=== PATIENT | female | born 1955 | race Caucasian/White ===

== ENCOUNTER 2016-12-16 05:17 | Day surgery (SDC) | payer OTHER ==
[2016-12-14 08:19] LABS: HEMATOCRIT 45.2 % (36.0-47.0); HEMOGLOBIN 15.1 g/dL (12.0-15.5); HGB HCT DIFFERENCE 0.1; MEAN CORPUSCULAR HGB CONC 33.5 g/dL (32.0-36.0); MEAN CORPUSCULAR VOLUME 87 fl (80-97); RED BLOOD COUNT 5.22 10^6/uL (3.72-5.28); RED CELL DISTRIBUTION WIDTH 13.4 % (11.5-14.0); WHITE BLOOD COUNT 6.4 10^3/uL (4.0-10.5)
[2016-12-14 08:43] LABS: ALANINE AMINOTRANSFERASE 30 U/L (9-52); ALBUMIN 4.5 g/dL (3.5-5.0); ALKALINE PHOSPHATASE 64 U/L (38-126); AMYLASE 45 U/L (30-110); ANION GAP 12 (5-19); ASPARTATE AMINO TRANSFERASE 23 U/L (14-36); BILIRUBIN,DIRECT 0.3 mg/dL (0.0-0.4); BILIRUBIN,TOTAL 0.8 mg/dL (0.2-1.3); BLOOD UREA NITROGEN 12 mg/dL (7-20); CALCIUM 9.6 mg/dL (8.4-10.2); CARBON DIOXIDE 30 mmol/L (22-30); CHLORIDE 106 mmol/L (98-107); GLUCOSE 113 mg/dL (75-110); SODIUM 147.8 mmol/L (137-145); TOTAL PROTEIN 7.3 g/dL (6.3-8.2)
--- NOTE | 2016-12-14 13:27 | EKG REPORT ---
SEVERITY:- OTHERWISE NORMAL ECG - SINUS RHYTHM MINIMAL ST DEPRESSION, INFERIOR LEADS : Confirmed by: Travis Clemons MD 14-Dec-2016 13:26:30
[~2016-12-16 05:17] MED LIST: ACETAMINOPHEN 325 MG TABLET PO PRN; CEFAZOLIN 1 GM/D5W RTU 1 GM/50 ML RTUPB IV PRN; LACTATED RINGERS 1000 ML IV PRN; LIDOCAINE 0.5% INJ-PF (5 MG/ML) 50 ML SDV SUBCUT PRN
[2016-12-16 05:57] LABS: PROTHROMBIN TIME 12.5 SEC (11.4-15.4)
[2016-12-16 05:58] LABS: PARTIAL THROMBOPLASTIN TIME 29.5 SEC (23.5-35.8)
[2016-12-16] MEDS ORDERED: BUPIVACAINE HCL 0.25 % INJ/PF (2.5 MG/1 ML) 30 ML VIAL ONE (06:32)
[2016-12-16] MEDS ORDERED: MIDAZOLAM 2 MG/2 ML INJ ONE (07:20)
[2016-12-16] MEDS ORDERED: PROPOFOL INJ 200 MG/20 ML VIAL IV ONE (07:20)
[2016-12-16] MEDS ORDERED: FENTANYL CITRATE INJ/PF 250 MCG/5 ML AMPULE ONE (07:20)
[2016-12-16] MEDS ORDERED: DEXMEDETOMIDINE INJ 80 MCG/20 ML VIAL IV ONE (07:21)
[2016-12-16] MEDS ORDERED: EPHEDRINE SULFATE INJ 50 MG/1 ML AMPULE ONE (07:21)
[2016-12-16] MEDS ORDERED: FENTANYL CITRATE INJ/PF 100 MCG/2 ML AMPUL IV PRN ×3 (08:01)
[2016-12-16] MEDS ORDERED: OXYCODONE-ACETAMINOPHEN 5-325 MG TABLET PO PRN ×3 (08:01→10:04)
[2016-12-16] MEDS ORDERED: MORPHINE SULFATE 10 MG/ML INJ IV PRN ×2 (08:01→08:40)
[2016-12-16] MEDS ORDERED: MEPERIDINE HCL/PF INJ 25 MG/1 ML DISP.SYRIN IV PRN (08:01)
[2016-12-16] MEDS ORDERED: PROMETHAZINE HCL INJ 25 MG/1 ML VIAL IV PRN ×2 (08:01)
[2016-12-16] MEDS ORDERED: DIPHENHYDRAMINE HCL 50 MG/ML VIAL IV PRN (08:01)
[2016-12-16] MEDS ORDERED: ONDANSETRON HCL INJ/PF 4 MG/2 ML SDV IV PRN (08:40)
--- NOTE | 2016-12-16 08:40 | Operative Report ---
Operative Report DATE OF SURGERY: 12/16/16 PREOPERATIVE DIAGNOSIS: Symptomatic cholelithiasis cholecystitis POSTOPERATIVE DIAGNOSIS: Same OPERATION: Laparoscopic cholecystectomy. Laparoscopic lysis of adhesions SURGEON: ENZO VALADEZ ANESTHESIA: GA TISSUE REMOVED OR ALTERED: one gallbladder with stones COMPLICATIONS: none ESTIMATED BLOOD LOSS: scant INTRAOPERATIVE FINDINGS: see below PROCEDURE: After obtaining informed consent, the patient was taken to the operating room. General Anesthesia was induced; the arms were extended, and the abdomen was exposed, and prepped and draped in a sterile fashion. Instrumentation was set up for laparoscopic cholecystectomy. Surgical plan and surgical timeout were conducted. A vertical incision was made above the umbilicus, and a verres needle was inserted uneventfully into the peritoneal cavity. Pneumoperitoneum was established. The verres needle was removed and a 5 mm trocar was inserted and a 5 mm flexible laparoscope was inserted. Visualization of the peritoneal cavity confirmed safe uneventful entry. Under direct visualization 3 additional 5 mm ports were established, one in the subxiphoid position and second in the subcostal position. There were extensive adhesions between the gallbladder and the gastrohepatic region as well as the hepato-colonic region .these adhesions were taken down using a combination of blunt, sharp, and electrocautery dissection. We now had exposure of the infundibulum of the gallbladder Visualization of the hepatobiliary anatomy revealed no anatomic variations. A grasper was placed on the fundus of the gallbladder and the gallbladder is elevated over the right surface of the liver; a second grasper was used to grasp the infundibulum of the gallbladder. The neck of the gallbladder and junction with the cystic duct was dissected out. Her were dense filmy adhesions between the gallbladder neck and the liver. These were taken down sharply. The Cystic artery was in its usual location, medial and cephalad to the cystic duct. The cystic artery was surrounded with a right angle clamp, clipped twice proximally and divided with laparoscopic scissors. We now opened the triangle of Calot by dividing the peritoneal reflection on both the medial and lateral sides of the cystic duct infundibular junction. The critical view was obtained. We now milked the cystic duct of any possible stones, clipped the cystic duct approximately 2 times once distally and divided with scissors. In order to ensure adequate closure of the cystic duct stump, a 0 PDS was placed proximal to the 2 previously placed marii. The gallbladder was now removed from the undersurface of the liver using hook cautery dissection. The gallbladder and stones were placed in an Endobag. Graspers were repositioned and the gallbladder was removed uneventfully from the abdominal cavity through the super umbilical port site incision. There was no spillage of stones. The specimen was examined, then passed off to pathology for permanent analysis. We returned to the peritoneal cavity check for bleeding, and evidence of bile leak, and there was none. We Confirmed satisfactory placement of clips on cystic duct and cystic artery were secured . At this point we felt the operation was complete. The subcutaneous tissue was then anesthetized with quarter percent Marcaine Sponge and needle counts are correct. All ports removed under direct visualization pneumoperitoneum evacuated, and 5 mm port wounds closed with 3-0 Vicryl suture, benzoin and Steri-Strips. The patient was extubated, and taken to the recovery room in stable condition.
--- NOTE | 2016-12-16 08:45 | PDOC DISCHARGE SUMMARY ---
Discharge Summary (SDC) - Discharge Final Diagnosis: Symptomatic cholelithiasis cholecystitis Date of Surgery: 12/16/16 Discharge Date: 12/16/16 Condition: Good Treatment or Instructions: [facility] [address] [place] [id number] Discharge Instructions: Laparoscopic Surgery 1. General Information: a. DO NOT DRIVE a car or operate dangerous machinery for 3-4 days or while taking narcotic pain pills. b. DO NOT consume alcohol, tranquilizers, sleeping medications or any non- prescribed medications for 24 hours unless approved by your doctor or as long as taking narcotic prescription medications. c. DO NOT make important decisions or sign any important papers for the first 24 hours after surgery. d. When discharged home the same day of surgery have a responsible person with you for the first night. 2. Activity Restrictions: 2 weeks. a. NO heavy lifting, straining abdominal muscles, bending over a lot, yard work, house work, or sports for [address] for 3-4 days or while taking Toradol . c. It is fine to go for walks, up and down steps, ride in a car. d. Elevate your head when sleeping/resting. 3. Treatment: a. You may shower 24 hours after surgery, no baths or swimming for 2 weeks. Remove band-aids or dressings before shower but leave paper strips (steri-strips ) on the skin to fall off on their own. If still on at postoperative visit they will be removed then. b. Drainage of fluid or blood is not unusual from an incision. If occurs, you can clean with peroxide and cotton ball daily and cover with dry gauze until the wound seals. c. If a lot of bleeding occurs, you can hold pressure with a gauze or cloth over the site for 10 minutes and it will usually stop. If bleeding continues you will need to call for possible evaluation in office or emergency room. 4. Medications: a. _ You may switch to plain Tylenol, Advil or Aleve as you transition from the narcotic. Many adults find good pain relief with Advil 600-800 mg three times a day with meals. This can cause indigestion, ulcers, and kidney problems with long-term use. b. You should resume all normal medications unless a change is specified by your doctors. c. Begin with clear liquids and may progress to your normal diet if not nauseated. No high fat, high protein foods the day of surgery. Normal diet 6. The following may occur after laparoscopic surgery: a. Shoulder or upper back ache from retained gas that should resolve in 1-2 days b. Soreness and bruising at incision sites will resolve with time. c. Scrotal swelling (labia in women) and bruising is often seen after hernia surgery. d. Sore throat e. Fatigue may last days to weeks. f. Difficulty urinating may occur and may need to come into emergency room for urinary catheter placement. 7. Notify Physician If: a. Worsening or pain not improved with pain medication b. Persistent nausea and vomiting c. Fever above 101 d. Persistent bleeding or swelling at operative site e. Unable to urinate and uncomfortable bladder 6-8 hours after surgery 8..Follow Up Care: a. Schedule a follow up appointment with your doctor for 2 weeks. In the event of any postoperative problems or questions or you may call the office during business hours or the On-Call physician evenings and weekends at [facility]. [facility] I understand the instructions for my postoperative care as described above and a copy has been given to me. Patient/Significant Other Witness Date Prescriptions: Ketorolac Tromethamine [Toradol 10 mg Tablet] 10 mg PO Q6HP PRN #0 tablet PRN Reason: Discharge Diet: As Tolerated Discharge Activity: Activity As Tolerated Home Care Assistance: None Needed Report the Following to Your Physician Immediately: Shortness of Breath, Increase in Pain, Fever over 101 Degrees
[2016-12-16] MEDS ORDERED: RINGERS SOLUTION,LACTATED 1,000 ML IV PRN (10:04)
[2016-12-16 10:50] VITALS: BP 116/74
[2016-12-16] MEDS ORDERED: ROCURONIUM BROMIDE INJ 50 MG/5 ML VIAL IV ONE (13:07)
[2016-12-16] MEDS ORDERED: NEOSTIGMINE METHYLSULFATE 10 MG/10 ML VIAL ONE (13:07)
[2016-12-16] MEDS ORDERED: DEXAMETHASONE SOD PHOSPHATE INJ 4 MG/1 ML VIAL ONE (13:07)
[2016-12-16] MEDS ORDERED: ONDANSETRON HCL INJ/PF 4 MG/2 ML SDV ONE (13:07)
[2016-12-16] MEDS ORDERED: GLYCOPYRROLATE INJ 0.4 MG/2 ML VIAL ONE (13:07)
[2016-12-16] MEDS ORDERED: LIDOCAINE 2% INJ-PF (20 MG/ML) 10 ML AMPUL ONE (13:07)
[2016-12-16] MEDS ORDERED: SUCCINYLCHOLINE CHLORIDE INJ 200 MG/10 ML VIAL ONE (13:07)
== END 2016-12-16 11:00 | disposition home or self-care (01) ==
LOC: OROUT 05:17
PROVIDERS: ATTEND Surgery
PROC: 0FT44ZZ Resection of Gallbladder, Percutaneous Endoscopic Approach (ICD-10-PCS; principal; 2016-12-16 07:30)
DX: K80.10 Calculus of gallbladder with chronic cholecystitis without obstruction (principal); I10 Essential (primary) hypertension; I25.10 Atherosclerotic heart disease of native coronary artery without angina pectoris; J44.9 Chronic obstructive pulmonary disease, unspecified; Z79.899 Other long term (current) drug therapy; Z79.82 Long term (current) use of aspirin; Z87.891 Personal history of nicotine dependence
CPT/HCPCS: 93005; 36415 ×2; 82150; 85027; 85610; 85730; 80076; 80048; 88304 ×2; 93010; 47562; J2250; J0690; J3490 ×4; J1100; J3010; J0330; J2405; J2704; 790

== ENCOUNTER 2016-12-22 19:14 | Inpatient (IN) | payer OTHER ==
[2016-12-22] MEDS ORDERED: MORPHINE SULFATE 10 MG/ML INJ IV ONE (19:24)
[2016-12-22] MEDS ORDERED: NORMAL SALINE 1000 ML 1,000 ML IV ONE ×2 (19:25→23:08)
[2016-12-22] MEDS ORDERED: ONDANSETRON HCL INJ/PF 4 MG/2 ML SDV IV ONE (19:25)
--- NOTE | 2016-12-22 19:27 | ER Document Report ---
ED GI/ - General Stated Complaint: ABDOMINAL PAIN Time seen by provider: 19:20 Notes: Patient is a 61-year-old female that comes to the emergency department by EMS for chief complaint of pain in her mid to upper right abdomen and upper midabdomen with vomiting. Patient states she is 5 days postop cholecystectomy by Dr. Harding. She states she is taking Toradol for pain at home, states she was doing well until took a couple of bites of dinner and suddenly began having sharp persistent pain with vomiting which has not improved. Given 4 mg Zofran by EMS. Patient states she had a normal-looking bowel movement today, denies blood in vomit, denies fever. PMH hysterectomy, [place] with stent, hypertension. TRAVEL OUTSIDE OF THE [place] IN LAST 30 DAYS: No - Related Data Allergies/Adverse Reactions: No Known Allergies Allergy (Verified 12/14/16 08:04) Past Medical History - General Information source: Patient - Social History Smoking Status: Current Some Day Smoker Frequency of alcohol use: None Drug Abuse: None Lives with: Family Family History: Reviewed & Not Pertinent - Past Medical History Cardiac Medical History: Reports: Hx Heart Attack - CARDIAC STENT x1, Hx Hypertension Denies: Hx Coronary Artery Disease Pulmonary Medical History: Denies: Hx Asthma, Hx Bronchitis, Hx COPD, Hx Pneumonia Neurological Medical History: Denies: Hx Cerebrovascular Accident, Hx Seizures GI Medical History: Denies: Hx Hepatitis, Hx Hiatal Hernia, Hx Ulcer Musculoskeltal Medical History: Denies Hx Arthritis Infectious Medical History: Denies: Hx Hepatitis Past Surgical History: Reports: Hx Hysterectomy. Denies: Hx Mastectomy, Hx Open Heart Surgery, Hx Pacemaker - Immunizations Hx Diphtheria, Pertussis, Tetanus Vaccination: Yes Review of Systems - Review of Systems Constitutional: No symptoms reported EENT: No symptoms reported Cardiovascular: No symptoms reported Respiratory: No symptoms reported Gastrointestinal: See HPI Genitourinary: No symptoms reported Female Genitourinary: No symptoms reported Musculoskeletal: No symptoms reported Skin: No symptoms reported Hematologic/Lymphatic: No symptoms reported Neurological/Psychological: No symptoms reported Physical Exam - Vital signs Vitals: Temp Pulse Resp BP Pulse Ox 98 F 84 18 145/92 H 100 12/22/16 19:27 12/22/16 19:27 12/22/16 19:27 12/22/16 19:27 12/22/16 19:27 Interpretation: Normal - General General appearance: Anxious In distress: Moderate - patient has difficulty holding still, appears to be in obvious discomfort - HEENT Head: Normocephalic, Atraumatic Eyes: Normal Conjunctiva: Normal Extraocular movements intact: Yes Eyelashes: Normal Pupils: PERRL Mouth/Lips: Normal Mucous membranes: Normal Pharynx: Normal Neck: Normal - Respiratory Respiratory status: No respiratory distress Chest status: Nontender Breath sounds: Normal. No: Decreased air movement, Wheezing Chest palpation: Normal - Cardiovascular Rhythm: Regular. No: Tachycardia Heart sounds: Normal auscultation, S1 appreciated, S2 appreciated Murmur: No - Abdominal Inspection: Healed incision - Healed incisions over the umbilical and mid upper abdomen, no significant surrounding erythema, induration, or other abnormality noted Distension: No distension Bowel sounds: Normal Tenderness: Tender - Patient is very tender with guarding in the mid to right upper abdomen and also in the epigastric area Organomegaly: No organomegaly - Back Back: Normal, Nontender - Extremities General upper extremity: Normal inspection, Nontender, Normal color, Normal ROM , Normal temperature General lower extremity: Normal inspection, Nontender, Normal color, Normal ROM , Normal temperature, Normal weight bearing. No: Christine's sign - Neurological Neuro grossly intact: Yes Cognition: Normal Orientation: AAOx4 Rubén Coma Scale Eye Opening: Spontaneous Rubén Coma Scale Verbal: Oriented Rubén Coma Scale Motor: Obeys Commands Rubén Coma Scale Total: 15 Speech: Normal Motor strength normal: LUE, RUE, LLE, RLE Sensory: Normal - Psychological Associated symptoms: Anxious - Skin Skin Temperature: Warm Skin Moisture: Dry Skin Color: Normal Course - Re-evaluation Re-evalutation: Patient initially very uncomfortable, acute abdominal series performed to rule out free air in the abdomen. Abdominal series is unremarkable, CBC shows leukocytosis at 15.9 with elevation of neutrophils with no bands. Chemistry unremarkable including LFTs and normal lipase. CT of the abdomen and pelvis performed with IV contrast, discussed with Dr. Guevara. Patient had to be remedicated for her pain. Contacted and spoke with Dr. 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 Dr. Reynaga evaluated patient at bedside, CT and workup nonspecific with no acute process noted, no obvious reason for patient's pain. Patient asking to go home, he recommends trial of by mouth and patient will be placed on Prilosec and Percocet for follow-up. Patient did not do well with by mouth trial, afterwards she began to have a lot of pain, on my reevaluation patient is noticeably again in pain. Spoke with Dr. Reynaga again, recommends admission to the hospital. Patient is now agreeable with this. - Vital Signs Vital signs: Temp Pulse Resp BP Pulse Ox 98.0 F 84 18 126/93 H 93 12/22/16 23:11 12/22/16 19:27 12/22/16 19:27 12/23/16 03:02 12/23/16 03:29 - Laboratory Result Diagrams: 12/22/16 20:47 12/22/16 20:47 Laboratory results interpreted by me: 12/22/16 12/22/16 12/22/16 20:47 20:47 22:05 WBC 15.9 H Seg Neuts % (Manual) 88 H Lymphocytes % (Manual) 3 L Abs Neuts (Manual) 14.0 H Glucose 147 H Urine Glucose (UA) 50 H Urine Ketones TRACE H Urine Blood MODERATE H Discharge - Discharge Clinical Impression: Abdominal pain Qualifiers: Abdominal location: upper abdomen, unspecified Qualified Code(s): R10.10 - Upper abdominal pain, unspecified Vomiting Qualifiers: Vomiting type: unspecified Vomiting Intractability: non-intractable Nausea presence: with nausea Qualified Code(s): R11.2 - Nausea with vomiting, unspecified Disposition: ADMITTED INPATIENT Admitting Provider: Surgicalist Unit Admitted: Surgical Floor
[2016-12-22] MEDS ORDERED: HYDROMORPHONE HCL INJ/PF 2 MG/ML AMPULE IV ONE ×2 (20:00→22:25)
[2016-12-22 21:01] LABS: HEMATOCRIT 38.8 % (36.0-47.0); HEMOGLOBIN 13.3 g/dL (12.0-15.5); HGB HCT DIFFERENCE 1.1; MEAN CORPUSCULAR HEMOGLOBIN 29.4 pg (27.0-33.4); MEAN CORPUSCULAR HGB CONC 34.4 g/dL (32.0-36.0); MEAN CORPUSCULAR VOLUME 86 fl (80-97); RED BLOOD COUNT 4.54 10^6/uL (3.72-5.28); RED CELL DISTRIBUTION WIDTH 13.7 % (11.5-14.0); WHITE BLOOD COUNT 15.9 10^3/uL (4.0-10.5)
[2016-12-22 21:13] LABS: ALANINE AMINOTRANSFERASE 38 U/L (9-52); ALBUMIN 3.9 g/dL (3.5-5.0); ALKALINE PHOSPHATASE 82 U/L (38-126); ANION GAP 13 (5-19); ASPARTATE AMINO TRANSFERASE 18 U/L (14-36); BILIRUBIN,DIRECT 0.2 mg/dL (0.0-0.4); BILIRUBIN,TOTAL 0.6 mg/dL (0.2-1.3); BLOOD UREA NITROGEN 14 mg/dL (7-20); CALCIUM 8.8 mg/dL (8.4-10.2); CARBON DIOXIDE 25 mmol/L (22-30); CHLORIDE 106 mmol/L (98-107); CREATININE RESULT 0.71 mg/dL (0.52-1.25); GLUCOSE 147 mg/dL (75-110); LIPASE 30.1 U/L (23-300); POTASSIUM 3.6 mmol/L (3.6-5.0); SODIUM 144.4 mmol/L (137-145); TOTAL PROTEIN 6.4 g/dL (6.3-8.2)
[2016-12-22 21:20] LABS: BASOPHILS % (MANUAL) 0 % (0-2); EOSINOPHILS % (MANUAL) 0 % (0-6); LYMPHOCYTES % (MANUAL) 3 % (13-45); TOTAL CELLS COUNTED 100
[2016-12-22 21:21] LABS: PLATELET CLUMPS PRESENT
[2016-12-22 22:25] LABS: APPEARANCE,URINE CLEAR; BILIRUBIN,URINE NEGATIVE (NEGATIVE); GLUCOSE, URINE 50 mg/dL (NEGATIVE); KETONES,URINE TRACE mg/dL (NEGATIVE); LEUKOCYTE ESTERASE,URINE NEGATIVE (NEGATIVE); NITRITE,URINE NEGATIVE (NEGATIVE); PROTEIN,URINE NEGATIVE (NEGATIVE); URINE SPECIFIC GRAVITY 1.026; UROBILINOGEN,URINE NEGATIVE mg/dL (<2.0)
[2016-12-22] MEDS ORDERED: FAMOTIDINE 20 MG TABLET PO ONE (23:14)
[2016-12-22] MEDS ORDERED: SUCRALFATE 1 GM TABLET PO ONE (23:14)
--- NOTE | 2016-12-23 00:34 | CONSULTATION REPORT E ---
Consultation Report NAME: DIANE SALINAS : 1955 AGE: 61Y DATE: 12/22/2016 TO: MAGY PATEL M.D. FROM: CELIA GOLDBERG Requesting Physician REASON FOR CONSULTATION: The patient is status post lap bill about [address] Harding. Patient all of a sudden after starting to eat dinner at a quarter to six today developed severe abdominal pains with nausea and vomiting. Came to the emergency room and an obstructing series was done. It was unremarkable. A CAT scan of the abdomen also was done. It showed no useful collection or perforation. Patient has been afebrile though her white count is up to 15,000; maybe due from her vomiting with dehydration. I saw her in the emergency room and she was just medicated parenterally about half an hour ago and she feels comfortable right now. Her abdomen is soft but some tenderness along the trocar sites. All the trocar sites are clean and dry. She does not have any constipation or dysuria. She had a bowel movement today. Her abdomen is flat. I discussed her case with ER physician and agree with the impression of likely gastritis. She will be given omeprazole or equivalent and Percocet p.r.n. for pain. If she still has significant amount of pain or still having nausea and vomiting then I may have to admit her for hydration and parenteral pain medication. Otherwise, she will be discharged and follow up with Dr. Harding' office. DICTATING PHYSICIAN: MAGY PATEL M.D. [id number] PHY#: [id number] ID: [id number] JOB#: [id number] ACCT: [id number] cc:MAGY PATEL M.D. >
[2016-12-23] MEDS ORDERED: HYDROMORPHONE HCL INJ/PF 2 MG/ML AMPULE IV ONE (01:01)
[2016-12-23] MEDS: PANTOPRAZOLE SODIUM 40 MG VIAL IV PRN ×3 (01:38→19:50)
[2016-12-23] MEDS: NORMAL SALINE 1000 ML 1,000 ML IV PRN ×2 (01:39→19:49)
[2016-12-23] MEDS: MORPHINE SULFATE 10 MG/ML INJ IV PRN ×3 (03:21→15:01)
[2016-12-23] MEDS ORDERED: ONDANSETRON HCL INJ/PF 4 MG/2 ML SDV IV PRN (04:38)
[2016-12-23] MEDS ORDERED: GLUCAGON,HUMAN RECOMB 1 MG INJ SUBCUT PRN ×2 (05:05→17:21)
[2016-12-23] MEDS ORDERED: DEXTROSE 40% GEL 15 GM TUBE PO PRN ×4 (05:05→17:21)
[2016-12-23] MEDS ORDERED: DEXTROSE 50%-WATER 25 GM/50 ML DISP.SYRIN IV PRN ×4 (05:05→17:21)
[2016-12-23 05:50] LABS: HEMATOCRIT 37.1 % (36.0-47.0); HEMOGLOBIN 12.7 g/dL (12.0-15.5); MEAN CORPUSCULAR HEMOGLOBIN 29.3 pg (27.0-33.4); MEAN CORPUSCULAR HGB CONC 34.3 g/dL (32.0-36.0); MEAN CORPUSCULAR VOLUME 85 fl (80-97); RED BLOOD COUNT 4.34 10^6/uL (3.72-5.28); RED CELL DISTRIBUTION WIDTH 13.5 % (11.5-14.0); WHITE BLOOD COUNT 20.9 10^3/uL (4.0-10.5)
[2016-12-23 06:16] LABS: BASOPHILS % (MANUAL) 0 % (0-2); EOSINOPHILS % (MANUAL) 0 % (0-6); LYMPHOCYTES % (MANUAL) 3 % (13-45); TOTAL CELLS COUNTED 100
[2016-12-23 06:18] LABS: OVALOCYTES SLIGHT; POIKILOCYTOSIS SLIGHT; TEAR DROP CELLS SLIGHT; TOXIC GRANULATION 1+; TOXIC VACUOLATION PRESENT
[2016-12-23] MEDS ORDERED: HYDROMORPHONE HCL INJ/PF 2 MG/ML AMPULE ONE ×2 (06:18→06:22)
[2016-12-23] MEDS: HYDROMORPHONE HCL INJ/PF 2 MG/ML AMPULE IV PRN ×2 (11:49→20:02)
[2016-12-23 13:50] LABS: HEMATOCRIT 39.2 % (36.0-47.0); HGB HCT DIFFERENCE -0.2; MEAN CORPUSCULAR HEMOGLOBIN 28.5 pg (27.0-33.4); MEAN CORPUSCULAR HGB CONC 33.2 g/dL (32.0-36.0); MEAN CORPUSCULAR VOLUME 86 fl (80-97); RED BLOOD COUNT 4.56 10^6/uL (3.72-5.28); RED CELL DISTRIBUTION WIDTH 13.8 % (11.5-14.0); WHITE BLOOD COUNT 22.7 10^3/uL (4.0-10.5)
[2016-12-23 14:09] LABS: ALANINE AMINOTRANSFERASE 28 U/L (9-52); ALBUMIN 3.8 g/dL (3.5-5.0); ALKALINE PHOSPHATASE 80 U/L (38-126); ASPARTATE AMINO TRANSFERASE 17 U/L (14-36); BILIRUBIN,DIRECT 0.3 mg/dL (0.0-0.4); BILIRUBIN,TOTAL 1.1 mg/dL (0.2-1.3); LIPASE 10.6 U/L (23-300); TOTAL PROTEIN 6.3 g/dL (6.3-8.2)
[2016-12-23 14:10] LABS: AMYLASE < 30 U/L (30-110)
[2016-12-23 14:33] LABS: BAND NEUTROPHILS % (MANUAL) 2 % (3-5); BASOPHILS % (MANUAL) 0 % (0-2); EOSINOPHILS % (MANUAL) 0 % (0-6); LYMPHOCYTES % (MANUAL) 5 % (13-45); POLYCHROMASIA SLIGHT; TOTAL CELLS COUNTED 100; TOXIC GRANULATION 1+; TOXIC VACUOLATION PRESENT
[2016-12-23] MEDS ORDERED: NICOTINE 21 MG/24 HR PATCH.TD24 TD PRN (14:35)
--- NOTE | 2016-12-23 14:40 | PDOC H&P ---
History of Present Illness Admission Date/PCP: 12/23/16 03:39 ADIEL HARDIN Attending: Surgicalist Patient complains of: Abdominal pain History of Present Illness: DIANE SALINAS is a 61 year old female with a past medical history of coronary artery disease. Patient presented to the emergency department by EMS for chief complaint of pain in her mid to upper right abdomen and upper midabdomen with vomiting. Patient stated she was 5 days postop cholecystectomy by Dr. Harding. She states she is taking Toradol for pain at home, states she was doing well until took a couple of bites of dinner and suddenly began having sharp persistent pain with vomiting which has not improved. Given 4 mg Zofran by EMS. Patient states she had a normal-looking bowel movement today, denies blood in vomit, denies fever. PMH hysterectomy, [place] with stent, hypertension. On presentation the patient was found to have normal LFTs, normal lipase, she was not making lactic acid however white count was 15,000. The patient was seen and examined by surgicalist and admitted to the service. The morning of the patient became short of breath and therefore was referred to the hospitalist for consultation. 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 Lives with: Family Smoking Status: Current Some Day Smoker Cigarettes Packs Per Day: 2 Number of Years Smokin Last Time Smoked: 12/21/16 Frequency of Alcohol Use: Occasional Hx Recreational Drug Use: No Hx Prescription Drug Abuse: No - Advance Directive Resuscitation Status: Full Code Surrogate healthcare decision maker:: Miley Portillo Family History Family History: Reviewed & Not Pertinent Parental Family History Reviewed: Yes Children Family History Reviewed: NA Sibling(s) Family History Reviewed.: Yes Medication/Allergy Home Medications: Amlodipine Besylate [Norvasc 2.5 mg Tablet] 2.5 mg PO DAILY 12/23/16 Aspirin [Aspirin 81 mg Chewable Tablet] 81 mg PO DAILY 12/23/16 Atorvastatin Calcium [Lipitor 40 mg Tablet] 40 mg PO QHS 12/23/16 Clopidogrel Bisulfate [Plavix 75 mg Tablet] 75 mg PO DAILY 12/23/16 Enalapril Maleate [Vasotec 20 mg Tablet] 20 mg PO DAILY 12/23/16 Metoprolol Tartrate [Lopressor 25 mg Tablet] 12.5 mg PO Q12 12/23/16 Allergies/Adverse Reactions: No Known Allergies Allergy (Verified 12/14/16 08:04) Review of Systems Constitutional: ABSENT: chills, fever(s), headache(s), weight gain, weight loss Eyes: ABSENT: visual disturbances Ears: ABSENT: hearing changes Cardiovascular: ABSENT: chest pain, dyspnea on exertion, edema, orthropnea, palpitations Respiratory: ABSENT: cough, hemoptysis Gastrointestinal: PRESENT: abdominal pain, nausea. ABSENT: constipation, diarrhea, hematemesis, hematochezia, vomiting Genitourinary: ABSENT: dysuria, hematuria Musculoskeletal: ABSENT: joint swelling Integumentary: ABSENT: rash, wounds Neurological: ABSENT: abnormal gait, abnormal speech, confusion, dizziness, focal weakness, syncope Psychiatric: ABSENT: anxiety, depression, homidical ideation, suicidal ideation Endocrine: ABSENT: cold intolerance, heat intolerance, polydipsia, polyuria Hematologic/Lymphatic: ABSENT: easy bleeding, easy bruising Physical Exam Vital Signs: Temp Pulse Resp BP Pulse Ox 98.7 F 83 19 126/80 H 97 12/23/16 07:34 12/23/16 07:34 12/23/16 07:34 12/23/16 07:34 12/23/16 07:34 Intake & Output 12/21/16 12/22/16 12/23/16 23:59 23:59 23:59 Output Total 400 Balance -400 Weight 69.4 kg General appearance: PRESENT: no acute distress, cooperative, well-developed, well-nourished Head exam: PRESENT: atraumatic, normocephalic Eye exam: PRESENT: conjunctiva pink, EOMI, PERRLA. ABSENT: scleral icterus Ear exam: PRESENT: normal external ear exam Mouth exam: PRESENT: moist, tongue midline Neck exam: ABSENT: carotid bruit, JVD, lymphadenopathy, thyromegaly Respiratory exam: PRESENT: clear to auscultation duncan, symmetrical, unlabored. ABSENT: rales, rhonchi, tachypnea, wheezes Cardiovascular exam: PRESENT: RRR. ABSENT: diastolic murmur, rubs, systolic murmur Pulses: PRESENT: normal dorsalis pedis pul Vascular exam: PRESENT: normal capillary refill GI/Abdominal exam: PRESENT: normal bowel sounds, soft. ABSENT: distended, guarding, mass, organolmegaly, rebound, tenderness Rectal exam: PRESENT: deferred Extremities exam: PRESENT: full ROM. ABSENT: calf tenderness, clubbing, pedal edema Neurological exam: PRESENT: alert, awake, oriented to person, oriented to place , oriented to time, oriented to situation, CN II-XII grossly intact. ABSENT: motor sensory deficit Psychiatric exam: PRESENT: appropriate affect, normal mood. ABSENT: homicidal ideation, suicidal ideation Skin exam: PRESENT: dry, intact, warm. ABSENT: cyanosis, rash Results Laboratory Results: 12/23/16 12/23/16 12/23/16 04:53 13:34 13:34 WBC 20.9 H RBC 4.34 Hgb 12.7 Hct 37.1 MCV 85 MCH 29.3 MCHC 34.3 RDW 13.5 Plt Count 254 Seg Neutrophils % Not Reportable Not Reportable Lymphocytes % Not Reportable Not Reportable Monocytes % Not Reportable Not Reportable Eosinophils % Not Reportable Not Reportable Basophils % Not Reportable Not Reportable Absolute Neutrophils Not Reportable Not Reportable Absolute Lymphocytes Not Reportable Not Reportable Absolute Monocytes Not Reportable Not Reportable Absolute Eosinophils Not Reportable Not Reportable Absolute Basophils Not Reportable Not Reportable Lactic Acid Total Bilirubin 1.1 AST 17 ALT 28 Alkaline Phosphatase 80 Total Protein 6.3 Albumin 3.8 Amylase < 30 L Lipase 10.6 L 12/23/16 13:34 WBC RBC Hgb Hct MCV MCH MCHC RDW Plt Count Seg Neutrophils % Lymphocytes % Monocytes % Eosinophils % Basophils % Absolute Neutrophils Absolute Lymphocytes Absolute Monocytes Absolute Eosinophils Absolute Basophils Lactic Acid 0.8 Total Bilirubin AST ALT Alkaline Phosphatase Total Protein Albumin Amylase Lipase Impressions: Acute Abdomen Series 12/22/16 19:25 IMPRESSION: NO RADIOGRAPHIC EVIDENCE FOR ACUTE ABDOMINAL DISEASE.Nonobstructive pattern. Abdomen/Pelvis CT 12/22/16 21:30 IMPRESSION: Postsurgical changes from recent cholecystectomy with mild free fluid in the surgical bed. No evidence for abscess or free air. Chest X-Ray 12/23/16 00:00 IMPRESSION: Bibasilar airspace disease right greater than left likely atelectasis. Early or developing pneumonia could not be excluded Lung Scan-VQ NM 12/23/16 00:00 IMPRESSION: NORMAL VENTILATION-PERFUSION LUNG SCAN. NEGATIVE FOR PULMONARY EMBOLI. Assessment & Plan - Diagnosis (1) Dyspnea Qualifiers: Dyspnea type: shortness of breath Qualified Code(s): R06.02 - Shortness of breath Is this a current diagnosis for this admission?: YesPlan: The patient states that her shortness of breath was related to her pain. The patient has been oxygenating well since that time. The patient is a heavy smoker therefore will add incentive spirometry also has issues with allergic rhinitis will add Flonase. Chest x-ray is pending. Given the patient's abdominal pain as well as leukocytosis is concern for biliary versus GI etiology. Would recommend antibiotic coverage. (2) Tobacco dependency Is this a current diagnosis for this admission?: YesPlan: Spent 3 minutes discussing smoking cessation education. The patient declines any pharmacological intervention at this time however will add a PRN nicotine patch. (3) Coronary artery disease Qualifiers: Coronary Disease-Associated Artery/Lesion type: [place] artery [place] vs. transplanted heart: [place] heart Associated angina: without angina Qualified Code(s): I25.10 - Atherosclerotic heart disease of [place] coronary artery without angina pectoris Is this a current diagnosis for this admission?: YesPlan: Continue home meds. Hold Plavix in case patient may need operative intervention. (4) Hypertension Qualifiers: Hypertension type: essential hypertension Qualified Code(s): I10 - Essential (primary) hypertension Is this a current diagnosis for this admission?: YesPlan: Will continue home medications. (5) Status post cholecystectomy Is this a current diagnosis for this admission?: Yes (6) Abdominal pain Qualifiers: Abdominal location: upper abdomen, unspecified Qualified Code(s): R10.10 - Upper abdominal pain, unspecified Is this a current diagnosis for this admission?: YesPlan: Management as per surgery - Time Time Spent: 50 to 70 Minutes Medications reviewed and adjusted accordingly: Yes Within: Other
[2016-12-23] MEDS ORDERED: VANCOMYCIN HCL INJ 1000 MG VIAL IV ONE (18:21)
[2016-12-23] MEDS ORDERED: VANCOMYCIN HCL INJ 1000 MG VIAL IV SCH (18:30)
[2016-12-23] MEDS ORDERED: VANCOMYCIN HCL 1,000 MG in DEXTROSE 5%-WATER 250 ML IV SCH (20:00)
[2016-12-23 20:44] LABS: TROUGH DRAW TIME 1913
[2016-12-23] MEDS: METRONIDAZOLE 500 MG/NS RTU 100 ML IV SCH (21:12)
--- NOTE | 2016-12-23 21:28 | PROGRESS NOTE E ---
Progress Note NAME: DIANE SALINAS : 1955 AGE: 61Y DATE: 12/23/2016 ROOM: 226 SUBJECTIVE: She continues to have abdominal pains more in the epigastric area though. According to the nurses, it was on the lower quadrant earlier today. Her white count went up from yesterday, but she does not have any fever. Because of the pain and tenderness, a repeat CT scan with oral contrast was ordered after discussion with Dr. Harding. The CAT scan showed no new lesions in the abdomen other than some more fluid around the liver and the operative gallbladder site. However, she does have a right lower lobe pneumonia, which may account for the white count elevation. Because of this she was started on IV cefepime and continued on Flagyl for questionable early diverticulitis. I saw her after the CAT scan and she felt a lot better and very hungry so I started her on clear liquids, which she tolerated very well. Repeat CBC will be ordered in the morning. DICTATING PHYSICIAN: MAGY PATEL M.D. [id number] PHY#: [id number] ID: [id number] JOB#: [id number] ACCT: [id number] cc: >
[2016-12-23] MEDS: METOPROLOL TARTRATE 25 MG TABLET PO SCH (21:32)
[2016-12-23] MEDS: FLUTICASONE NASAL SPRAY 50 MCG/SPRY 120 SPRAY/16 GM NASL SCH (21:37)
[2016-12-23] MEDS: ATORVASTATIN CALCIUM 40 MG TABLET PO SCH (22:19)
[2016-12-23] MEDS: CEFEPIME 1 GM/D5W RTU 50 ML IV SCH (22:20)
[2016-12-24] MEDS: HYDROMORPHONE HCL INJ/PF 2 MG/ML AMPULE IV PRN ×3 (00:48→21:29)
[2016-12-24] MEDS: METRONIDAZOLE 500 MG/NS RTU 100 ML IV SCH ×3 (05:26→21:59)
[2016-12-24] MEDS: PANTOPRAZOLE SODIUM 40 MG VIAL IV PRN ×2 (05:59→16:23)
[2016-12-24] MEDS: NORMAL SALINE 1000 ML 1,000 ML IV PRN ×2 (06:38→16:23)
[2016-12-24] MEDS: MORPHINE SULFATE 10 MG/ML INJ IV PRN (06:48)
[2016-12-24 07:11] LABS: HEMOGLOBIN 12.1 g/dL (12.0-15.5); HGB HCT DIFFERENCE 0.3; MEAN CORPUSCULAR HEMOGLOBIN 28.7 pg (27.0-33.4); MEAN CORPUSCULAR HGB CONC 33.5 g/dL (32.0-36.0); MEAN CORPUSCULAR VOLUME 86 fl (80-97); RED CELL DISTRIBUTION WIDTH 13.5 % (11.5-14.0); WHITE BLOOD COUNT 16.4 10^3/uL (4.0-10.5)
[2016-12-24 07:30] LABS: ALANINE AMINOTRANSFERASE 27 U/L (9-52); ALBUMIN 3.1 g/dL (3.5-5.0); ALKALINE PHOSPHATASE 80 U/L (38-126); ANION GAP 10 (5-19); ASPARTATE AMINO TRANSFERASE 19 U/L (14-36); BILIRUBIN,DIRECT 0.5 mg/dL (0.0-0.4); BILIRUBIN,TOTAL 1.3 mg/dL (0.2-1.3); BLOOD UREA NITROGEN 13 mg/dL (7-20); CALCIUM 8.7 mg/dL (8.4-10.2); CARBON DIOXIDE 25 mmol/L (22-30); CHLORIDE 107 mmol/L (98-107); CREATININE RESULT 0.65 mg/dL (0.52-1.25); GLUCOSE 107 mg/dL (75-110); LIPASE 10.9 U/L (23-300); POTASSIUM 3.6 mmol/L (3.6-5.0); SODIUM 141.7 mmol/L (137-145); TOTAL PROTEIN 5.5 g/dL (6.3-8.2)
[2016-12-24 07:56] LABS: BAND NEUTROPHILS % (MANUAL) 1 % (3-5); BASOPHILS % (MANUAL) 0 % (0-2); EOSINOPHILS % (MANUAL) 0 % (0-6); LYMPHOCYTES % (MANUAL) 2 % (13-45); POLYCHROMASIA SLIGHT; TOTAL CELLS COUNTED 100; TOXIC GRANULATION SLIGHT
[2016-12-24] MEDS ORDERED: ALBUTEROL SULFATE 0.083% NEB 2.5 MG/3 ML AMPUL NEB PRN (08:19)
--- NOTE | 2016-12-24 09:01 | PDOC PROGRESS REPORT ---
Subjective Progress Note for:: 12/24/16 Subjective:: still with ruq abdominal pain. but feels better from admission Physical Exam Vital Signs: Temp Pulse Resp BP Pulse Ox 98.0 F 86 20 154/70 H 94 12/24/16 08:36 12/24/16 08:36 12/24/16 08:36 12/24/16 08:36 12/24/16 08:36 Intake & Output 12/23/16 12/24/16 12/25/16 06:59 06:59 06:59 Intake Total 2500 Output Total 300 100 Balance -300 2400 Weight 69.4 kg General appearance: PRESENT: no acute distress, cooperative Respiratory exam: PRESENT: other - decreased bs at bases GI/Abdominal exam: PRESENT: other - soft, mildly distended with tenderness ruq. Results Laboratory Results: 12/24/16 06:38 12/24/16 06:38 12/23/16 12/23/16 12/23/16 13:34 13:34 13:34 WBC 22.7 H RBC 4.56 Hgb 13.0 Hct 39.2 MCV 86 MCH 28.5 MCHC 33.2 RDW 13.8 Plt Count 276 Seg Neutrophils % Not Reportable Lymphocytes % Not Reportable Monocytes % Not Reportable Eosinophils % Not Reportable Basophils % Not Reportable Absolute Neutrophils Not Reportable Absolute Lymphocytes Not Reportable Absolute Monocytes Not Reportable Absolute Eosinophils Not Reportable Absolute Basophils Not Reportable Sodium Potassium Chloride Carbon Dioxide Anion Gap BUN Creatinine Est GFR ( Amer) Est GFR (Non-Af Amer) Glucose Lactic Acid 0.8 Calcium Total Bilirubin 1.1 AST 17 ALT 28 Alkaline Phosphatase 80 Total Protein 6.3 Albumin 3.8 Amylase < 30 L Lipase 10.6 L 12/24/16 12/24/16 06:38 06:38 WBC 16.4 H RBC 4.20 Hgb 12.1 Hct 36.0 MCV 86 MCH 28.7 MCHC 33.5 RDW 13.5 Plt Count 261 Seg Neutrophils % Not Reportable Lymphocytes % Not Reportable Monocytes % Not Reportable Eosinophils % Not Reportable Basophils % Not Reportable Absolute Neutrophils Not Reportable Absolute Lymphocytes Not Reportable Absolute Monocytes Not Reportable Absolute Eosinophils Not Reportable Absolute Basophils Not Reportable Sodium 141.7 Potassium 3.6 Chloride 107 Carbon Dioxide 25 Anion Gap 10 BUN 13 Creatinine 0.65 Est GFR ( Amer) > 60 Est GFR (Non-Af Amer) > 60 Glucose 107 Lactic Acid Calcium 8.7 Total Bilirubin 1.3 AST 19 ALT 27 Alkaline Phosphatase 80 Total Protein 5.5 L Albumin 3.1 L Amylase Lipase 10.9 L Impressions: Acute Abdomen Series 12/22/16 19:25 IMPRESSION: NO RADIOGRAPHIC EVIDENCE FOR ACUTE ABDOMINAL DISEASE.Nonobstructive pattern. Chest X-Ray 12/23/16 00:00 IMPRESSION: Bibasilar airspace disease right greater than left likely atelectasis. Early or developing pneumonia could not be excluded Lung Scan-VQ NM 12/23/16 00:00 IMPRESSION: NORMAL VENTILATION-PERFUSION LUNG SCAN. NEGATIVE FOR PULMONARY EMBOLI. Abdomen/Pelvis CT 12/23/16 14:35 IMPRESSION: 1. Increasing free fluid within the abdomen surrounding the liver , in the lesser sac and in the pelvis. There is no air to suggest abscess. 2. Right lower lobe pneumonia. Assessment & Plan - Diagnosis (1) Abdominal pain Qualifiers: Abdominal location: upper abdomen, unspecified Qualified Code(s): R10.10 - Upper abdominal pain, unspecified Is this a current diagnosis for this admission?: YesPlan: s/p lap bill a week ago. possible bile leak. check hida. (2) Pneumonia Qualifiers: Laterality: right Lung location: lower lobe of lung Is this a current diagnosis for this admission?: YesPlan: abx, pulmonary toilet.
[2016-12-24] MEDS ORDERED: ASPIRIN 81 MG TABLET, CHEWABLE PO SCH (10:00)
[2016-12-24] MEDS ORDERED: AMLODIPINE BESYLATE 2.5 MG TABLET PO SCH (10:00)
[2016-12-24] MEDS ORDERED: CLOPIDOGREL BISULFATE 75 MG TABLET PO SCH (10:00)
[2016-12-24] MEDS ORDERED: ENALAPRIL MALEATE 10 MG TABLET PO SCH (10:00)
[2016-12-24] MEDS ORDERED: (PENDING PHARMACY ID) (Enalapril Maleate [Vasotec 20 Mg Tablet] 20 MG) PO SCH (10:00)
[2016-12-24] MEDS: METOPROLOL TARTRATE 25 MG TABLET PO SCH ×2 (12:02→22:00)
[2016-12-24] MEDS: CEFEPIME 1 GM/D5W RTU 50 ML IV SCH ×2 (12:05→21:58)
[2016-12-24] MEDS: FLUTICASONE NASAL SPRAY 50 MCG/SPRY 120 SPRAY/16 GM NASL SCH ×2 (12:07→22:10)
--- NOTE | 2016-12-24 15:50 | PDOC PROGRESS REPORT ---
Subjective Progress Note for:: 12/24/16 Physical Exam Vital Signs: Temp Pulse Resp BP Pulse Ox 97.7 F 94 22 H 163/86 H 100 12/24/16 15:00 12/24/16 15:00 12/24/16 15:00 12/24/16 15:00 12/24/16 15:00 Intake & Output 12/23/16 12/24/16 12/25/16 06:59 06:59 06:59 Intake Total 2500 Output Total 300 100 Balance -300 2400 Weight 69.4 kg Results Laboratory Results: 12/24/16 06:38 12/24/16 06:38 12/24/16 12/24/16 06:38 06:38 WBC 16.4 H RBC 4.20 Hgb 12.1 Hct 36.0 MCV 86 MCH 28.7 MCHC 33.5 RDW 13.5 Plt Count 261 Seg Neutrophils % Not Reportable Lymphocytes % Not Reportable Monocytes % Not Reportable Eosinophils % Not Reportable Basophils % Not Reportable Absolute Neutrophils Not Reportable Absolute Lymphocytes Not Reportable Absolute Monocytes Not Reportable Absolute Eosinophils Not Reportable Absolute Basophils Not Reportable Sodium 141.7 Potassium 3.6 Chloride 107 Carbon Dioxide 25 Anion Gap 10 BUN 13 Creatinine 0.65 Est GFR ( Amer) > 60 Est GFR (Non-Af Amer) > 60 Glucose 107 Calcium 8.7 Total Bilirubin 1.3 AST 19 ALT 27 Alkaline Phosphatase 80 Total Protein 5.5 L Albumin 3.1 L Lipase 10.9 L Impressions: Acute Abdomen Series 12/22/16 19:25 IMPRESSION: NO RADIOGRAPHIC EVIDENCE FOR ACUTE ABDOMINAL DISEASE.Nonobstructive pattern. Chest X-Ray 12/23/16 00:00 IMPRESSION: Bibasilar airspace disease right greater than left likely atelectasis. Early or developing pneumonia could not be excluded Lung Scan-VQ NM 12/23/16 00:00 IMPRESSION: NORMAL VENTILATION-PERFUSION LUNG SCAN. NEGATIVE FOR PULMONARY EMBOLI. Abdomen/Pelvis CT 12/23/16 14:35 IMPRESSION: 1. Increasing free fluid within the abdomen surrounding the liver , in the lesser sac and in the pelvis. There is no air to suggest abscess. 2. Right lower lobe pneumonia. Hepatobiliary Scan Nuclear Medicine 12/24/16 00:00 IMPRESSION: Contained bile leak in the surgical bed. Assessment & Plan - Diagnosis (1) Abdominal pain Qualifiers: Abdominal location: upper abdomen, unspecified Qualified Code(s): R10.10 - Upper abdominal pain, unspecified Is this a current diagnosis for this admission?: Yes (2) Pneumonia Qualifiers: Laterality: right Lung location: lower lobe of lung Is this a current diagnosis for this admission?: Yes (3) Postoperative bile leak Is this a current diagnosis for this admission?: YesPlan: hida shows evidence of contained leak. however, with the significant perihepatic fluid collection and tenderness, likely connecting with it. will get ct guided drainage. pt is on plavix. will stop plavix and consult GI for ERCP on wednesday.
--- NOTE | 2016-12-24 16:14 | PDOC PROGRESS REPORT ---
Subjective Progress Note for:: 12/24/16 Subjective:: The patient states that she does feel overall much better today. The patient did have a large amount of visitors. I discussed the case with surgicalist. Given that the patient has received Plavix today she'll be unable to have a ERCP. This can be done on Wednesday. His arrangements were made with the surgicalist and Dr. Rodriguez. The patient is hypertensive however it appears she has not received her blood pressure medications today. Given the patient's history of coronary artery disease as well as her acute illness and hypertension do feel the patient would benefit from IMCU status. Physical Exam Vital Signs: Temp Pulse Resp BP Pulse Ox 97.7 F 94 22 H 163/86 H 100 12/24/16 15:00 12/24/16 15:00 12/24/16 15:00 12/24/16 15:00 12/24/16 15:00 Intake & Output 12/22/16 12/23/16 12/24/16 23:59 23:59 23:59 Intake Total 500 2000 Output Total 400 Balance 100 2000 Weight 69.4 kg Results Laboratory Results: 12/24/16 06:38 12/24/16 06:38 12/24/16 12/24/16 06:38 06:38 WBC 16.4 H RBC 4.20 Hgb 12.1 Hct 36.0 MCV 86 MCH 28.7 MCHC 33.5 RDW 13.5 Plt Count 261 Seg Neutrophils % Not Reportable Lymphocytes % Not Reportable Monocytes % Not Reportable Eosinophils % Not Reportable Basophils % Not Reportable Absolute Neutrophils Not Reportable Absolute Lymphocytes Not Reportable Absolute Monocytes Not Reportable Absolute Eosinophils Not Reportable Absolute Basophils Not Reportable Sodium 141.7 Potassium 3.6 Chloride 107 Carbon Dioxide 25 Anion Gap 10 BUN 13 Creatinine 0.65 Est GFR ( Amer) > 60 Est GFR (Non-Af Amer) > 60 Glucose 107 Calcium 8.7 Total Bilirubin 1.3 AST 19 ALT 27 Alkaline Phosphatase 80 Total Protein 5.5 L Albumin 3.1 L Lipase 10.9 L Impressions: Acute Abdomen Series 12/22/16 19:25 IMPRESSION: NO RADIOGRAPHIC EVIDENCE FOR ACUTE ABDOMINAL DISEASE.Nonobstructive pattern. Chest X-Ray 12/23/16 00:00 IMPRESSION: Bibasilar airspace disease right greater than left likely atelectasis. Early or developing pneumonia could not be excluded Lung Scan-VQ NM 12/23/16 00:00 IMPRESSION: NORMAL VENTILATION-PERFUSION LUNG SCAN. NEGATIVE FOR PULMONARY EMBOLI. Abdomen/Pelvis CT 12/23/16 14:35 IMPRESSION: 1. Increasing free fluid within the abdomen surrounding the liver , in the lesser sac and in the pelvis. There is no air to suggest abscess. 2. Right lower lobe pneumonia. Hepatobiliary Scan Nuclear Medicine 12/24/16 00:00 IMPRESSION: Contained bile leak in the surgical bed. Assessment & Plan - Diagnosis (1) Status post cholecystectomy Is this a current diagnosis for this admission?: YesPlan: Does appear to be a biliary leak. Management as per surgery in conjunction with radiology and GI. At this point the patient is here appear hemodynamically stable. (2) Coronary artery disease Qualifiers: Coronary Disease-Associated Artery/Lesion type: [place] artery [place] vs. transplanted heart: [place] heart Associated angina: without angina Qualified Code(s): I25.10 - Atherosclerotic heart disease of [place] coronary artery without angina pectoris Is this a current diagnosis for this admission?: YesPlan: Continue home meds. Hold Plavix in case patient may need operative intervention. (3) Hypertension Qualifiers: Hypertension type: essential hypertension Qualified Code(s): I10 - Essential (primary) hypertension Is this a current diagnosis for this admission?: YesPlan: The patient may resume home medications. (4) Pneumonia Qualifiers: Laterality: right Lung location: lower lobe of lung Is this a current diagnosis for this admission?: YesPlan: Chest x-ray was suggestive of possible early pneumonia. The patient does not have any overt clinical symptoms of this. Will continue incentive spirometry. The patient is a heavy smoker. (5) Tobacco dependency Is this a current diagnosis for this admission?: YesPlan: The patient declines any pharmacological intervention at this time however will add a PRN nicotine patch. - Time Time Spent with patient: 25-34 minutes Medications reviewed and adjusted accordingly: Yes
[2016-12-24] MEDS: ATORVASTATIN CALCIUM 40 MG TABLET PO SCH (21:57)
[2016-12-25] MEDS: MORPHINE SULFATE 10 MG/ML INJ IV PRN (00:08)
[2016-12-25] MEDS: HYDROMORPHONE HCL INJ/PF 2 MG/ML AMPULE IV PRN ×4 (01:47→21:45)
[2016-12-25] MEDS: PANTOPRAZOLE SODIUM 40 MG VIAL IV PRN (02:05)
[2016-12-25] MEDS ORDERED: KETOROLAC TROMETHAMINE INJ/PF 30 MG/1 ML SDV ONE (02:25)
[2016-12-25] MEDS ORDERED: KETOROLAC TROMETHAMINE INJ/PF 30 MG/1 ML SDV IV ONE (02:30)
[2016-12-25] MEDS: METRONIDAZOLE 500 MG/NS RTU 100 ML IV SCH ×3 (06:16→21:21)
[2016-12-25] MEDS ORDERED: BUPIVACAINE HCL 0.25 % INJ/PF (2.5 MG/1 ML) 30 ML VIAL ONE (07:24)
[2016-12-25] MEDS ORDERED: BUPIVACAINE INJ/PF LIPOSOME/PF 266 MG/20 ML SDV ONE (07:25)
[2016-12-25 08:11] LABS: CREATININE RESULT 0.68 mg/dL (0.52-1.25)
[2016-12-25] MEDS ORDERED: FENTANYL CITRATE INJ/PF 250 MCG/5 ML AMPULE ONE (08:26)
[2016-12-25] MEDS ORDERED: ALBUTEROL SULFATE 0.083% NEB 2.5 MG/3 ML AMPUL NEB ONE (08:26)
[2016-12-25] MEDS ORDERED: MIDAZOLAM 2 MG/2 ML INJ ONE (08:27)
[2016-12-25] MEDS ORDERED: PROPOFOL INJ 200 MG/20 ML VIAL IV ONE (08:27)
[2016-12-25] MEDS ORDERED: ACETAMINOPHEN 100 ML IV ONE (08:27)
[2016-12-25] MEDS ORDERED: MORPHINE SULFATE 10 MG/ML INJ ONE (08:28)
[2016-12-25] MEDS ORDERED: FENTANYL CITRATE INJ/PF 100 MCG/2 ML AMPUL IV PRN ×3 (10:12)
[2016-12-25] MEDS ORDERED: MEPERIDINE HCL/PF INJ 25 MG/1 ML DISP.SYRIN IV PRN (10:12)
[2016-12-25] MEDS ORDERED: OXYCODONE-ACETAMINOPHEN 5-325 MG TABLET PO PRN ×2 (10:12)
[2016-12-25] MEDS ORDERED: DIPHENHYDRAMINE HCL 50 MG/ML VIAL IV PRN (10:12)
[2016-12-25] MEDS ORDERED: MORPHINE SULFATE 10 MG/ML INJ IV PRN (10:12)
[2016-12-25] MEDS ORDERED: PROMETHAZINE HCL INJ 25 MG/1 ML VIAL IV PRN ×2 (10:12)
[2016-12-25] MEDS ORDERED: PHARMACY COMMUNICATION ORDER MC NR (10:45)
[2016-12-25] MEDS ORDERED: DEXTROSE 40% GEL 15 GM TUBE NG PRN (10:49)
[2016-12-25] MEDS ORDERED: OXYCODONE-ACETAMINOPHEN 5-325 MG TABLET NG PRN ×2 (10:51)
--- NOTE | 2016-12-25 10:58 | Operative Report ---
Nonrecallable Operative Report DATE OF SURGERY: 12/25/16 PREOPERATIVE DIAGNOSIS: 1. Bile leak with peritonitis. 2. Status post- laparoscopic cholecystectomy. 3. Smoker POSTOPERATIVE DIAGNOSIS: Same OPERATION: 1. Exploratory laparoscopy. 2. Washout of peritoneal cavity. 3. Resecuring of cystic duct stump. 4. Drainage of super and infra-hepatic spaces SURGEON: ENZO HARDING ANESTHESIA: GA TISSUE REMOVED OR ALTERED: Bile and fibrinous debris COMPLICATIONS: None ESTIMATED BLOOD LOSS: scant INTRAOPERATIVE FINDINGS: See below PROCEDURE: The patient was taken from the floor to the preop holding area and then the main operating room where general anesthesia was induced. She had voided prior to entering the OR. Arms were abducted, abdomen exposed, prepped and draped in sterile fashion. Surgical plan and surgical time out conducted. Skin was anesthetized with quarter percent Marcaine at all for previous laparoscopy sites. We approach the peritoneal cavity by opening the medial right subcostal incision, inserting a Veress needle to the peritoneal cavity and pneumoperitoneum established. Veress needle was removed and a 5 mm port was inserted in the peritoneal cavity. Of note there was some dilated small bowel but were able to gain exposure safely. Under direct visualization 3 additional 5 mm ports were placed at the previous port site incisions including right subcostal lateral position, subxiphoid position, and supraumbilical position. Intraoperative peritoneal cavity findings were significant for moderate amount of bile and fibrinous material above and around the right lobe of the liver. A moderate amount of bile in the pelvis. Total volume of retained bile approximately 500 mL. Using suction and irrigation of approximately 2 L, all accessible drain bile was irrigated out of the peritoneal cavity, and fibrinous debris broken up during this included fibrin between the subhepatic space and the gastroduodenal area. We were now able to expose sob hepatic space including the gallbladder fossa using 2 nicely positioned liver retractors. This gave us excellent exposure to the postoperative site where the majority of the tissue was encountered. the adhesions allowed us complete exposure to the postoperative field which appeared as we had left it during the previous operation. Specifically there were 2 clips on the cystic artery stump in the medial and cephalad position, and further towards the jen hepatis was the cystic duct stump. This is where the majority of the bile staining main after washing out the region cystic duct stump had 2 clips placed distally and slightly more proximally a 3-0 PDS suture. This was left just as they had been installed by Dr. Harding during the patient's initial laparoscopic cholecystectomy. The reason for placing the Endoloop was because the 2 clips not completely cross the full diameter of the cystic duct stump. After meticulously examining this area, cleaning up any residual pooled bile, it appeared the ongoing bile leak, although very subtle, was coming from the posterior deep side of the cystic duct stump, perhaps adjacent to the secured Endoloop. Because of the short length of the stump, and the now inflamed surrounding tissue, I felt the safest maneuver removed the 2 distal clips, and place a second 3-0 PDS Endoloop on the cystic duct stump. This in fact was achieved successfully. Unfortunately, continued to be a slow ooze of bile presumably from the more proximal Endoloop site. At this point, I felt that the primary objective of the operation was achieved, that was irrigating out the bile, and affecting proper drainage. Therefore I placed 2 large Chavez drains through the right subcostal port site incisions. The lateral drain was placed over the dome of the right lobe of the liver and subdiaphragmatic compartment, and the medial drain was placed in the subhepatic space in the gallbladder fossa. We felt the operation was complete. Sponge and needle counts are correct. All ports removed under direct visualization, pneumoperitoneum evacuated, and secured with 2-0 Prolene suture and all wounds closed with 3-0 Vicryl suture. Benzoin and Steri-Strips applied. As of the impending sepsis, patient's history of smoking and now reoperative surgery, we felt that a visit to the ICU leaving her intubated would be in her best interest so that was executed. A Hill catheter was inserted at the conclusion of the operation. The patient tolerated the procedure well. There were no complications.
[2016-12-25] MEDS: FLUTICASONE NASAL SPRAY 50 MCG/SPRY 120 SPRAY/16 GM NASL SCH ×2 (13:05→21:19)
[2016-12-25] MEDS: CEFEPIME 1 GM/D5W RTU 50 ML IV SCH ×2 (13:05→21:21)
--- NOTE | 2016-12-25 15:35 | PDOC PROGRESS REPORT ---
Subjective Progress Note for:: 12/25/16 Subjective:: The patient was seen postoperatively on rounds. The patient went to the ICU after surgery and is currently intubated. The patient did have a duration of hypertension postoperatively and was elected to remain intubated. The patient is currently [facility] 70-75[facility] Currently [facility]. The patient has no evidence of volume overload at this time. Physical Exam Vital Signs: Temp Pulse Resp BP Pulse Ox 97.5 F 109 H 14 158/93 H 97 12/25/16 14:21 12/25/16 11:09 12/25/16 11:09 12/25/16 11:09 12/25/16 12:30 Intake & Output 12/23/16 12/24/16 12/25/16 23:59 23:59 23:59 Intake Total 250 0 Output Total 3092 Balance 250 -3092 Weight 76.5 kg General appearance: PRESENT: well-developed, well-nourished Exam: Intubate, sedated, mechanically ventilated Head exam: PRESENT: atraumatic, normocephalic Eye exam: PRESENT: conjunctiva pink, EOMI, PERRLA. ABSENT: scleral icterus Ear exam: PRESENT: normal external ear exam Mouth exam: PRESENT: moist, other - ET tube in place Neck exam: ABSENT: carotid bruit, JVD, lymphadenopathy, thyromegaly Respiratory exam: PRESENT: clear to auscultation duncan, symmetrical - Mechanical. ABSENT: rales, rhonchi, tachypnea, wheezes Cardiovascular exam: PRESENT: RRR. ABSENT: diastolic murmur, rubs, systolic murmur Pulses: PRESENT: normal dorsalis pedis pul Vascular exam: PRESENT: normal capillary refill GI/Abdominal exam: PRESENT: distended, firm. ABSENT: mass Rectal exam: PRESENT: deferred Extremities exam: ABSENT: calf tenderness, clubbing, pedal edema Skin exam: PRESENT: dry, intact, warm. ABSENT: cyanosis, rash Results Laboratory Results: Labs- Last Values WBC 16.4 10^3/uL (4.0-10.5) H 12/24/16 06:38 RBC 4.20 10^6/uL (3.72-5.28) 12/24/16 06:38 Hgb 12.1 g/dL (12.0-15.5) 12/24/16 06:38 Hct 36.0 % (36.0-47.0) 12/24/16 06:38 MCV 86 fl (80-97) 12/24/16 06:38 MCH 28.7 pg (27.0-33.4) 12/24/16 06:38 MCHC 33.5 g/dL (32.0-36.0) 12/24/16 06:38 RDW 13.5 % (11.5-14.0) 12/24/16 06:38 Plt Count 261 10^3/uL (150-450) 12/24/16 06:38 Total Counted 100 12/24/16 06:38 Seg Neutrophils % Not Reportable 12/24/16 06:38 Seg Neuts % (Manual) 87 % (42-78) H 12/24/16 06:38 Band Neutrophils % 1 % (3-5) L 12/24/16 06:38 Lymphocytes % Not Reportable 12/24/16 06:38 Lymphocytes % (Manual) 2 % (13-45) L 12/24/16 06:38 Atypical Lymphs % 1 % (0) 12/24/16 06:38 Monocytes % Not Reportable 12/24/16 06:38 Monocytes % (Manual) 9 % (3-13) 12/24/16 06:38 Eosinophils % Not Reportable 12/24/16 06:38 Eosinophils % (Manual) 0 % (0-6) 12/24/16 06:38 Basophils % Not Reportable 12/24/16 06:38 Basophils % (Manual) 0 % (0-2) 12/24/16 06:38 Absolute Neutrophils Not Reportable 12/24/16 06:38 Abs Neuts (Manual) 14.4 10^3/uL (1.7-8.2) H 12/24/16 06:38 Absolute Lymphocytes Not Reportable 12/24/16 06:38 Abs Lymphs (Manual) 0.5 10^3/uL (0.5-4.7) 12/24/16 06:38 Absolute Monocytes Not Reportable 12/24/16 06:38 Abs Monocytes (Manual) 1.5 10^3/uL (0.1-1.4) H 12/24/16 06:38 Absolute Eosinophils Not Reportable 12/24/16 06:38 Absolute Eos (Manual) 0.0 10^3/uL (0.0-0.6) 12/24/16 06:38 Absolute Basophils Not Reportable 12/24/16 06:38 Abs Basophils (Manual) 0.0 10^3/uL (0.0-0.2) 12/24/16 06:38 Toxic Granulation SLIGHT 12/24/16 06:38 Toxic Vacuolation PRESENT 12/23/16 13:34 Clumped Platelets PRESENT 12/22/16 20:47 Platelet Comment ADEQUATE 12/24/16 06:38 Polychromasia SLIGHT 12/24/16 06:38 Poikilocytosis SLIGHT 12/23/16 04:53 Tear Drop Cells SLIGHT 12/23/16 04:53 Ovalocytes SLIGHT 12/23/16 04:53 D-Dimer 0.97 ug/mL (0.00-0.50) H 12/23/16 04:53 Sodium 141.7 mmol/L (137-145) 12/24/16 06:38 Potassium 3.6 mmol/L (3.6-5.0) 12/24/16 06:38 Chloride 107 mmol/L (98-107) 12/24/16 06:38 Carbon Dioxide 25 mmol/L (22-30) 12/24/16 06:38 Anion Gap 10 (5-19) 12/24/16 06:38 BUN 13 mg/dL (7-20) 12/24/16 06:38 Creatinine 0.68 mg/dL (0.52-1.25) 12/25/16 07:44 Est GFR ( Amer) > 60 (>60) 12/25/16 07:44 Est GFR (Non-Af Amer) > 60 (>60) 12/25/16 07:44 Glucose 107 mg/dL (75-110) 12/24/16 06:38 Lactic Acid 0.8 mmol/L (0.7-2.1) 12/23/16 13:34 Calcium 8.7 mg/dL (8.4-10.2) 12/24/16 06:38 Total Bilirubin 1.3 mg/dL (0.2-1.3) 12/24/16 06:38 Direct Bilirubin 0.5 mg/dL (0.0-0.4) H 12/24/16 06:38 Indirect Bilirubin Not Reportable 12/24/16 06:38 Neonat Total Bilirubin Not Reportable 12/24/16 06:38 AST 19 U/L (14-36) 12/24/16 06:38 ALT 27 U/L (9-52) 12/24/16 06:38 Alkaline Phosphatase 80 U/L (38-126) 12/24/16 06:38 Total Protein 5.5 g/dL (6.3-8.2) L 12/24/16 06:38 Albumin 3.1 g/dL (3.5-5.0) L 12/24/16 06:38 Amylase < 30 U/L (30-110) L 12/23/16 13:34 Lipase 10.9 U/L (23-300) L 12/24/16 06:38 Urine Color YELLOW 12/22/16 22:05 Urine Appearance CLEAR 12/22/16 22:05 Urine pH 6.0 (5.0-9.0) 12/22/16 22:05 Ur Specific [place] 1.026 12/22/16 22:05 Urine Protein NEGATIVE mg/dL (NEGATIVE) 12/22/16 22:05 Urine Glucose (UA) 50 mg/dL (NEGATIVE) H 12/22/16 22:05 Urine Ketones TRACE mg/dL (NEGATIVE) H 12/22/16 22:05 Urine Blood MODERATE (NEGATIVE) H 12/22/16 22:05 Urine Nitrite NEGATIVE (NEGATIVE) 12/22/16 22:05 Urine Bilirubin NEGATIVE (NEGATIVE) 12/22/16 22:05 Urine Urobilinogen NEGATIVE mg/dL (<2.0) 12/22/16 22:05 Ur Leukocyte Esterase NEGATIVE (NEGATIVE) 12/22/16 22:05 Urine WBC (Auto) 1 /HPF 12/22/16 22:05 Urine RBC (Auto) 4 /HPF 12/22/16 22:05 Squamous Epi Cells Auto 1 /HPF 12/22/16 22:05 Urine Mucus (Auto) RARE /LPF 12/22/16 22:05 Urine Ascorbic Acid NEGATIVE (NEGATIVE) 12/22/16 22:05 Time Trough Drawn 0744 12/25/16 07:44 Vancomycin Trough < 5.0 ug/mL (5.0-20.0) L 12/25/16 07:44 Blood Type A POSITIVE 12/25/16 08:30 Antibody Screen NEGATIVE 12/25/16 08:30 Impressions: Acute Abdomen Series 12/22/16 19:25 IMPRESSION: NO RADIOGRAPHIC EVIDENCE FOR ACUTE ABDOMINAL DISEASE.Nonobstructive pattern. Lung Scan-VQ NM 12/23/16 00:00 IMPRESSION: NORMAL VENTILATION-PERFUSION LUNG SCAN. NEGATIVE FOR PULMONARY EMBOLI. Abdomen/Pelvis CT 12/23/16 14:35 IMPRESSION: 1. Increasing free fluid within the abdomen surrounding the liver , in the lesser sac and in the pelvis. There is no air to suggest abscess. 2. Right lower lobe pneumonia. Hepatobiliary Scan Nuclear Medicine 12/24/16 00:00 IMPRESSION: Contained bile leak in the surgical bed. KUB X-Ray 12/25/16 10:38 IMPRESSION: Post bile leak repair. Right subphrenic and right gallbladder fossa surgical drains are in place. Nonobstructive bowel gas pattern. Nasogastric tube, Hill catheter in good positioning Chest X-Ray 12/25/16 11:00 IMPRESSION: 1. Support tubes and lines as above. Biphasic basilar airspace opacities are again noted slightly worsened than on the prior study right greater than left. There is pulmonary vascular congestion which is mild in nature. Possible small bilateral pleural effusions. Subcutaneous air noted in the lateral chest wall on the right. Assessment & Plan - Diagnosis (1) Status post cholecystectomy Is this a current diagnosis for this admission?: YesPlan: The patient was noted to have a bile leak is status post operative repair with drain. Management as per surgery. (2) Sepsis Qualifiers: Sepsis type: sepsis due to unspecified organism Qualified Code(s): A41.9 - Sepsis, unspecified organism Is this a current diagnosis for this admission?: YesPlan: The patient is status post washout. Will repeat CBC in the a.m. Will add vasopressors if the patient's mammogram drops below 70. Continue current antibiotic coverage. Will monitor CVP with line placement. Will obtain repeat labs and follow (3) Pneumonia Qualifiers: Laterality: right Lung location: lower lobe of lung Is this a current diagnosis for this admission?: YesPlan: Chest x-ray showed worsening in comparison to yesterday. Will continue current antibiotic coverage. Will continue incentive spirometry. The patient is a heavy smoker. Patient does have evidence of effusions therefore will obtain echocardiogram. (4) Coronary artery disease Qualifiers: Coronary Disease-Associated Artery/Lesion type: [place] artery [place] vs. transplanted heart: [place] heart Associated angina: without angina Qualified Code(s): I25.10 - Atherosclerotic heart disease of [place] coronary artery without angina pectoris Is this a current diagnosis for this admission?: YesPlan: Continue home meds. Pending echo and troponin may consult cardiology. (5) Hypertension Qualifiers: Hypertension type: essential hypertension Qualified Code(s): I10 - Essential (primary) hypertension Is this a current diagnosis for this admission?: YesPlan: Hold home blood pressure medications for now (6) Tobacco dependency Is this a current diagnosis for this admission?: YesPlan: The patient declines any pharmacological intervention at this time however will continue PRN nicotine patch. - Time Critical Time spent with patient: 35 or more minutes Medications reviewed and adjusted accordingly: Yes Disposition: The patient is a full code. Pending patient's symptomatology and diagnostic findings will reevaluate as needed.
[2016-12-25] MEDS ORDERED: ONDANSETRON HCL INJ/PF 4 MG/2 ML SDV ONE (15:45)
[2016-12-25] MEDS ORDERED: ROCURONIUM BROMIDE INJ 50 MG/5 ML VIAL IV ONE (15:45)
[2016-12-25] MEDS ORDERED: METOCLOPRAMIDE HCL INJ/PF 10 MG/2 ML SDV ONE (15:45)
[2016-12-25] MEDS ORDERED: LIDOCAINE 2% INJ-PF (20 MG/ML) 10 ML AMPUL ONE (15:45)
[2016-12-25] MEDS ORDERED: PHENYLEPHRINE HCL INJ/PF 10 MG/1 ML SDV ONE (15:45)
[2016-12-25] MEDS ORDERED: GLYCOPYRROLATE INJ 0.4 MG/2 ML VIAL ONE (15:45)
[2016-12-25] MEDS ORDERED: SUCCINYLCHOLINE CHLORIDE INJ 200 MG/10 ML VIAL ONE (15:45)
--- NOTE | 2016-12-25 17:17 | PDOC CONSULTATION ---
Consultation Consult Date: 12/25/16 Attending physician:: AYANNA PACKER Consult reason:: resp failure History of Present Illness Admission Date/PCP: 12/24/16 16:00 ADIEL HARDIN History of Present Illness: information from chart as patient intubated no one at bedside DIANE SALINAS is a 61 year old female with a past medical history of coronary artery disease. Patient presented to the emergency department by EMS for chief complaint of pain in her mid to upper right abdomen and upper midabdomen with vomiting. Patient stated she was 5 days postop cholecystectomy by Dr. Harding. She states she is taking Toradol for pain at home, states she was doing well until took a couple of bites of dinner and suddenly began having sharp persistent pain with vomiting which has not improved. Given 4 mg Zofran by EMS. Patient states she had a normal-looking bowel movement today, denies blood in vomit, denies fever. PMH hysterectomy, CA with stent, hypertension. On presentation the patient was found to have normal LFTs, normal lipase, she was not making lactic acid however white count was 15,000. The patient was seen and examined by surgicalist and admitted to the service. The morning of the patient became short of breath and therefore was referred to the hospitalist for consultation. Past Medical History Cardiac Medical History: Reports: Myocardial Infarction - CARDIAC STENT x1, Hypertension Denies: Coronary Artery Disease Pulmonary Medical History: Denies: Asthma, Bronchitis, Chronic Obstructive Pulmonary Disease (COPD), Pneumonia Neurological Medical History: Denies: Seizures GI Medical History: Denies: Hepatitis, Hiatal Hernia Musculoskeltal Medical History: Denies: Arthritis Hematology: Denies: Anemia, Sickle Cell Disease Past Surgical History Past Surgical History: Reports: Cholecystectomy, Hysterectomy Denies: Amputation, Mastectomy, Pacemaker Social History Information Source: [facility] Records Lives with: Family Smoking Status: Current Some Day Smoker Cigarettes Packs Per Day: 2 Number of Years Smokin Last Time Smoked: 12/21/16 Frequency of Alcohol Use: Occasional Hx Recreational Drug Use: No Hx Prescription Drug Abuse: No - Advance Directive Resuscitation Status: Full Code Family History Family History: Reviewed & Not Pertinent Parental Family History Reviewed: No Children Family History Reviewed: No Sibling(s) Family History Reviewed.: No Medication/Allergy Home Medications: Amlodipine Besylate [Norvasc 2.5 mg Tablet] 2.5 mg PO DAILY 12/23/16 Aspirin [Aspirin 81 mg Chewable Tablet] 81 mg PO DAILY 12/23/16 Atorvastatin Calcium [Lipitor 40 mg Tablet] 40 mg PO QHS 12/23/16 Clopidogrel Bisulfate [Plavix 75 mg Tablet] 75 mg PO DAILY 12/23/16 Enalapril Maleate [Vasotec 20 mg Tablet] 20 mg PO DAILY 12/23/16 Metoprolol Tartrate [Lopressor 25 mg Tablet] 12.5 mg PO Q12 12/23/16 Allergies/Adverse Reactions: No Known Allergies Allergy (Verified 12/14/16 08:04) Review of Systems ROS unobtainable: Due to endotracheal tube Physical Exam Vital Signs: Temp Pulse Resp BP Pulse Ox 97.5 F 64 13 89/63 L 97 12/25/16 16:00 12/25/16 16:00 12/25/16 16:00 12/25/16 16:00 12/25/16 16:00 Intake & Output 12/24/16 12/25/16 12/26/16 06:59 06:59 06:59 Intake Total 250 0 Output Total 3217 Balance 250 -3217 Weight 76.5 kg General appearance: PRESENT: no acute distress, disheveled, well-developed, well -nourished Head exam: PRESENT: atraumatic, normocephalic Eye exam: PRESENT: conjunctiva pale Mouth exam: PRESENT: neck supple, other - ET tube Neck exam: ABSENT: carotid bruit, JVD, lymphadenopathy, thyromegaly Respiratory exam: PRESENT: decreased breath sounds, prolonged expiratory phas, rhonchi, symmetrical, unlabored Cardiovascular exam: PRESENT: RRR, +S1, +S2 Pulses: PRESENT: normal radial pulses GI/Abdominal exam: PRESENT: distended, other - ruq dressing dry Rectal exam: PRESENT: deferred Gentrourinary exam: PRESENT: indwelling catheter Musculoskeletal exam: PRESENT: normal inspection Skin exam: PRESENT: dry, warm Results Laboratory Results: 12/25/16 07:44 12/25/16 12/25/16 07:44 08:30 Creatinine 0.68 Est GFR ( Amer) > 60 Est GFR (Non-Af Amer) > 60 Blood Type A POSITIVE Antibody Screen NEGATIVE 12/25/16 14:49 Troponin I < 0.012 Impressions: Acute Abdomen Series 12/22/16 19:25 IMPRESSION: NO RADIOGRAPHIC EVIDENCE FOR ACUTE ABDOMINAL DISEASE.Nonobstructive pattern. Lung Scan-VQ NM 12/23/16 00:00 IMPRESSION: NORMAL VENTILATION-PERFUSION LUNG SCAN. NEGATIVE FOR PULMONARY EMBOLI. Abdomen/Pelvis CT 12/23/16 14:35 IMPRESSION: 1. Increasing free fluid within the abdomen surrounding the liver , in the lesser sac and in the pelvis. There is no air to suggest abscess. 2. Right lower lobe pneumonia. Hepatobiliary Scan Nuclear Medicine 12/24/16 00:00 IMPRESSION: Contained bile leak in the surgical bed. KUB X-Ray 12/25/16 10:38 IMPRESSION: Post bile leak repair. Right subphrenic and right gallbladder fossa surgical drains are in place. Nonobstructive bowel gas pattern. Nasogastric tube, Hill catheter in good positioning Chest X-Ray 12/25/16 11:00 IMPRESSION: 1. Support tubes and lines as above. Biphasic basilar airspace opacities are again noted slightly worsened than on the prior study right greater than left. There is pulmonary vascular congestion which is mild in nature. Possible small bilateral pleural effusions. Subcutaneous air noted in the lateral chest wall on the right. Assessment & Plan - Diagnosis (1) Postoperative bile leak Is this a current diagnosis for this admission?: YesPlan: per surgery (2) Tobacco dependency Is this a current diagnosis for this admission?: YesPlan: transdermal patch as you have started (3) Pneumonia Qualifiers: Laterality: right Lung location: lower lobe of lung Is this a current diagnosis for this admission?: YesPlan: r sided effusion minimal : basilar airspace dx T Max 98.5 no + cultures thus far - Time Critical Time spent with patient: 35 or more minutes
[2016-12-25] MEDS ORDERED: NOREPINEPHRINE BITARTRATE INJ/PF 4 MG/4 ML SDV IV ONE (17:32)
[2016-12-25] MEDS: DEXTROSE 5%-WATER 250 ML with NOREPINEPHRINE BITARTRATE 4 MG IV PRN ×4 (17:35→22:03)
[2016-12-25 17:58] LABS: ALANINE AMINOTRANSFERASE 39 U/L (9-52); ALBUMIN 2.2 g/dL (3.5-5.0); ALKALINE PHOSPHATASE 63 U/L (38-126); AMYLASE < 30 U/L (30-110); ANION GAP 9 (5-19); ASPARTATE AMINO TRANSFERASE 35 U/L (14-36); BILIRUBIN,DIRECT 0.5 mg/dL (0.0-0.4); BILIRUBIN,TOTAL 0.8 mg/dL (0.2-1.3); BLOOD UREA NITROGEN 12 mg/dL (7-20); CALCIUM 7.1 mg/dL (8.4-10.2); CARBON DIOXIDE 23 mmol/L (22-30); CHLORIDE 112 mmol/L (98-107); CREATININE RESULT 0.71 mg/dL (0.52-1.25); GLUCOSE 84 mg/dL (75-110); LIPASE 11.5 U/L (23-300); POTASSIUM 3.4 mmol/L (3.6-5.0); SODIUM 143.7 mmol/L (137-145); TOTAL PROTEIN 4.3 g/dL (6.3-8.2)
[2016-12-25 18:04] LABS: ARTERIAL BLOOD BASE EXCESS -4.5 mmol/L; ARTERIAL BLOOD O2 SATURATION 92.6 % (94-98)
[2016-12-25 18:10] LABS: ABSOLUTE EOSINOPHILS # (AUTO) 0.1 10^3/uL (0.0-0.6); ABSOLUTE LYMPHOCYTES (AUTO) 1.1 10^3/uL (0.5-4.7); ABSOLUTE MONOCYTES (AUTO) 1.3 10^3/uL (0.1-1.4); ABSOLUTE NEUT (AUTO) 16.5 10^3/uL (1.7-8.2); BASOPHILS % (AUTO) 0.2 % (0-2); EOSINOPHILS % (AUTO) 0.6 % (0-6); HEMOGLOBIN 10.7 g/dL (12.0-15.5); HGB HCT DIFFERENCE 0.1; LYMPHOCYTES % (AUTO) 5.7 % (13-45); MEAN CORPUSCULAR HEMOGLOBIN 28.7 pg (27.0-33.4); MEAN CORPUSCULAR HGB CONC 33.3 g/dL (32.0-36.0); MEAN CORPUSCULAR VOLUME 86 fl (80-97); MONOCYTES % (AUTO) 6.9 % (3-13); RED BLOOD COUNT 3.72 10^6/uL (3.72-5.28); RED CELL DISTRIBUTION WIDTH 13.6 % (11.5-14.0); SEGMENTED NEUTROPHILS % (AUTO) 86.6 % (42-78); WHITE BLOOD COUNT 19.1 10^3/uL (4.0-10.5)
[2016-12-25] MEDS ORDERED: NORMAL SALINE INJ/PF 0.9% 10 ML SDV IV PRN (18:56)
[2016-12-25] MEDS: PROPOFOL 100 ML IV PRN (19:22)
--- NOTE | 2016-12-25 19:25 | Operative Report ---
Nonrecallable Operative Report DATE OF SURGERY: 12/25/16 PREOPERATIVE DIAGNOSIS: Septic shock POSTOPERATIVE DIAGNOSIS: Same OPERATION: Right subclavian triple-lumen central venous access catheter insertion. Interpretation of portable chest x-ray SURGEON: ENZO VALADEZ ANESTHESIA: Local TISSUE REMOVED OR ALTERED: None COMPLICATIONS: None ESTIMATED BLOOD LOSS: 5 mL INTRAOPERATIVE FINDINGS: See below PROCEDURE: Informed consent was obtained. The patient was placed in Trendelenburg the right subclavian area was exposed , prepped and draped in a sterile fashion. Surgical plan and surgical timeout discussed. The right subclavian area was anesthetized with 1% lidocaine without epinephrine. An 18-gauge needle and wire were threaded into the right subclavian vein. The tract was dilated up, the dilator removed, and the triple- lumen central venous access catheter was threaded into the right subclavian vein uneventfully to the hub. There was excellent aspiration and flush of saline through all 3 lumens. The catheter was affixed to the skin with a Biopatch and 2-0 silk suture; sterile dressing applied. The patient tolerated the procedure well. There were no complications. Portable upright chest x-ray revealed the tip of the catheter in the right atrium, no evidence pneumothorax. Support tubes otherwise in place.
--- NOTE | 2016-12-25 19:32 | XCELERA REPORT ---
[address] [address] Transthoracic Echocardiogram Report Name: DIANE SALINAS Age: 61 yrs Gender: Female : 1955 Patient Status: Inpatient Patient Location: ICU\S\602\S\A Study Date: 12/25/2016 01:19 PM Height: 63 in Weight: 168 lb BSA: 1.8 m2 Procedure: A complete two-dimensional transthoracic echocardiogram was performed (2D, M-mode, spectral and color flow Doppler). The study was technically difficult with many images being suboptimal in quality. Reason For Study: effusions Ordering Physician: AYANNA PACKER Performed By: Caroline Figueroa Interpretation Summary The study was technically difficult with many images being suboptimal in quality. Left ventricular systolic function is low normal. There is mild concentric left ventricular hypertrophy. Doppler measurements suggest pseudonormalized left ventricular relaxation, which is associated with grade II/IV or mild to moderate diastolic dysfunction The left ventricle is grossly normal size. Wall motion cannot be accurately commented on, but no definite regional wall motion abnormalities noted. Some CD shift noted near membranous IVS. Possible VSD vs Artifactual The right ventricular systolic function is normal. The right ventricle is borderline dilated. The right atrium is normal. The left atrial size is normal. There is a trace amount of mitral regurgitation There is no mitral valve stenosis. There is no aortic valve stenosis No aortic regurgitation is present. There is a trace or physiologic amount of tricuspid regurgitation Tricuspid regurgitation jet envelope not well defined to measure RV systolic pressure accurately. The aortic root is not well visualized. The inferior vena cava was not well visualized Minimal pericardial effusion. MMode/2D Measurements \T\ Calculations RVDd: 3.2 cm LVIDd: 4.9 cm FS: 26.5 % Ao root diam: 3.2 cm IVSd: 1.1 cm LVIDs: 3.6 cm EDV(Teich): 114.2 ml LVPWd: 1.1 cm ESV(Teich): 55.3 ml Ao root area: 7.9 cm2 EF(Teich): 51.6 % LA dimension: 3.3 cm Doppler Measurements \T\ Calculations MV E max sabrina: MV P1/2t max sabrina: Ao V2 max: LV V1 max P.6 cm/sec 107.1 cm/sec 128.1 cm/sec 4.2 mmHg MV A max sabrina: MV P1/2t: 91.6 msec Ao max PG: LV V1 max: 81.9 cm/sec 6.6 mmHg 102.2 cm/sec MV E/A: 1.3 MVA(P1/2t): 2.4 cm2 MV dec slope: 342.5 cm/sec2 PA V2 max: PI end-d sabrina: TR max sabrina: 72.1 cm/sec 90.9 cm/sec 247.2 cm/sec PA max PG: TR max P.1 mmHg 24.5 mmHg Left Ventricle The left ventricle is grossly normal size. There is mild concentric left ventricular hypertrophy. Left ventricular systolic function is low normal. Doppler measurements suggest pseudonormalized left ventricular relaxation, which is associated with grade II/IV or mild to moderate diastolic dysfunction. Wall motion cannot be accurately commented on, but no definite regional wall motion abnormalities noted. Some CD shift noted near membranous IVS. Possible VSD vs Artifactual. Right Ventricle The right ventricle is borderline dilated. There is normal right ventricular wall thickness. The right ventricular systolic function is normal. Atria The right atrium is normal. The left atrial size is normal. Interarterial septum not well visualized and not well dopplered. Cannot comment on ASD/PFO presence. Mitral Valve The mitral valve is grossly normal. There is no mitral valve stenosis. There is a trace amount of mitral regurgitation. Aortic Valve The aortic valve is grossly normal. There is no aortic valve stenosis. No aortic regurgitation is present. Tricuspid Valve The tricuspid valve is not well visualized secondary to technical limitations. There is no tricuspid stenosis. There is a trace or physiologic amount of tricuspid regurgitation. Tricuspid regurgitation jet envelope not well defined to measure RV systolic pressure accurately. Pulmonic Valve The pulmonic valve is not well visualized. Great Vessels The aortic root is not well visualized. The inferior vena cava was not well visualized. Effusions Minimal pericardial effusion. : AYANNA PACKER > Gonzales Anglin
[2016-12-25] MEDS: IPRATROPIUM/ALBUTEROL 0.5-2.5 MG/3 ML AMPUL NEB SCH (19:46)
[2016-12-25 19:59] LABS: APPEARANCE,URINE CLEAR; BILIRUBIN,URINE NEGATIVE (NEGATIVE); GLUCOSE, URINE NEGATIVE (NEGATIVE); KETONES,URINE TRACE mg/dL (NEGATIVE); LEUKOCYTE ESTERASE,URINE TRACE (NEGATIVE); NITRITE,URINE NEGATIVE (NEGATIVE); PROTEIN,URINE 30 mg/dL (NEGATIVE); URINE SPECIFIC GRAVITY 1.028; UROBILINOGEN,URINE NEGATIVE mg/dL (<2.0)
[2016-12-25] MEDS: ATORVASTATIN CALCIUM 40 MG TABLET NG SCH (21:19)
[2016-12-25] MEDS: METOPROLOL TARTRATE 25 MG TABLET NG SCH (21:19)
[2016-12-26] MEDS: NORMAL SALINE 1000 ML 1,000 ML IV PRN (02:25)
[2016-12-26] MEDS: DEXTROSE 5%-WATER 250 ML with PHENYLEPHRINE HCL 40 MG IV PRN ×6 (02:25→18:07)
[2016-12-26] MEDS: IPRATROPIUM/ALBUTEROL 0.5-2.5 MG/3 ML AMPUL NEB SCH ×4 (03:30→20:45)
[2016-12-26] MEDS: HYDROMORPHONE HCL INJ/PF 2 MG/ML AMPULE IV PRN ×3 (04:17→21:42)
[2016-12-26] MEDS: PROPOFOL 100 ML IV PRN ×6 (04:18→21:28)
[2016-12-26] MEDS: DEXTROSE 5%-WATER 250 ML with NOREPINEPHRINE BITARTRATE 4 MG IV PRN ×2 (04:18)
[2016-12-26] MEDS: METRONIDAZOLE 500 MG/NS RTU 100 ML IV SCH (06:05)
[2016-12-26 06:25] LABS: ARTERIAL BLOOD BASE EXCESS -6.9 mmol/L; ARTERIAL BLOOD O2 SATURATION 95.6 % (94-98)
[2016-12-26 06:28] LABS: ABSOLUTE EOSINOPHILS # (AUTO) 0.3 10^3/uL (0.0-0.6); ABSOLUTE LYMPHOCYTES (AUTO) 1.2 10^3/uL (0.5-4.7); ABSOLUTE MONOCYTES (AUTO) 1.5 10^3/uL (0.1-1.4); ABSOLUTE NEUT (AUTO) 16.2 10^3/uL (1.7-8.2); BASOPHILS % (AUTO) 0.2 % (0-2); EOSINOPHILS % (AUTO) 1.7 % (0-6); HEMATOCRIT 32.2 % (36.0-47.0); HEMOGLOBIN 10.9 g/dL (12.0-15.5); HGB HCT DIFFERENCE 0.5; LYMPHOCYTES % (AUTO) 6.2 % (13-45); MEAN CORPUSCULAR HEMOGLOBIN 29.3 pg (27.0-33.4); MEAN CORPUSCULAR HGB CONC 33.8 g/dL (32.0-36.0); MEAN CORPUSCULAR VOLUME 87 fl (80-97); MONOCYTES % (AUTO) 7.7 % (3-13); RED BLOOD COUNT 3.72 10^6/uL (3.72-5.28); SEGMENTED NEUTROPHILS % (AUTO) 84.2 % (42-78); WHITE BLOOD COUNT 19.3 10^3/uL (4.0-10.5)
[2016-12-26 06:47] LABS: ALANINE AMINOTRANSFERASE 34 U/L (9-52); ALBUMIN 2.3 g/dL (3.5-5.0); ALKALINE PHOSPHATASE 72 U/L (38-126); ANION GAP 13 (5-19); ASPARTATE AMINO TRANSFERASE 27 U/L (14-36); BILIRUBIN,DIRECT 0.3 mg/dL (0.0-0.4); BILIRUBIN,TOTAL 0.5 mg/dL (0.2-1.3); BLOOD UREA NITROGEN 10 mg/dL (7-20); CALCIUM 7.7 mg/dL (8.4-10.2); CARBON DIOXIDE 21 mmol/L (22-30); CHLORIDE 111 mmol/L (98-107); CREATININE RESULT 0.76 mg/dL (0.52-1.25); GLUCOSE 116 mg/dL (75-110); MAGNESIUM 1.9 mg/dL (1.6-2.3); POTASSIUM 3.2 mmol/L (3.6-5.0); SODIUM 144.6 mmol/L (137-145); TOTAL PROTEIN 4.5 g/dL (6.3-8.2)
[2016-12-26] MEDS ORDERED: NORMAL SALINE 1000 ML 1,000 ML IV PRN ×2 (07:53→16:51)
[2016-12-26] MEDS ORDERED: VANCOMYCIN HCL 0 MG in DEXTROSE 5%-WATER 250 ML IV NR (08:00)
[2016-12-26] MEDS: POTASSI CL 20 MEQ/50 ML RIDER 50 ML IV SCH ×2 (09:02→09:57)
[2016-12-26] MEDS: ASPIRIN 81 MG TABLET, CHEWABLE NG SCH (09:04)
[2016-12-26] MEDS: METOPROLOL TARTRATE 25 MG TABLET NG SCH ×2 (09:06→21:29)
[2016-12-26] MEDS: ENALAPRIL MALEATE 10 MG TABLET NG SCH (09:06)
[2016-12-26] MEDS: AMLODIPINE BESYLATE 2.5 MG TABLET NG SCH (09:06)
[2016-12-26] MEDS: FLUTICASONE NASAL SPRAY 50 MCG/SPRY 120 SPRAY/16 GM NASL SCH ×2 (09:06→21:29)
--- NOTE | 2016-12-26 09:22 | PDOC PROGRESS REPORT ---
Subjective Progress Note for:: 12/26/16 Subjective:: on vent Physical Exam Vital Signs: Temp Pulse Resp BP Pulse Ox 98.6 F 57 L 14 110/67 98 12/26/16 06:38 12/26/16 02:00 12/26/16 02:00 12/26/16 06:24 12/26/16 06:30 Intake & Output 12/25/16 12/26/16 12/27/16 06:59 06:59 06:59 Intake Total 250 6355 Output Total 4627 Balance 250 1728 Weight 76.5 kg 85.7 kg GI/Abdominal exam: PRESENT: other - soft abdomen non tender KELLIE drains bilious 300-500ml shift GI Consult for ERCP Wednesday Results Laboratory Results: 12/26/16 06:00 12/26/16 06:00 12/25/16 12/25/16 12/25/16 08:30 17:30 17:30 WBC 19.1 H RBC 3.72 Hgb 10.7 L Hct 32.0 L MCV 86 MCH 28.7 MCHC 33.3 RDW 13.6 Plt Count 241 Seg Neutrophils % 86.6 H Lymphocytes % 5.7 L Monocytes % 6.9 Eosinophils % 0.6 Basophils % 0.2 Absolute Neutrophils 16.5 H Absolute Lymphocytes 1.1 Absolute Monocytes 1.3 Absolute Eosinophils 0.1 Absolute Basophils 0.0 Carbonic Acid HCO3/H2CO3 Ratio ABG pH ABG pCO2 ABG pO2 ABG HCO3 ABG O2 Saturation ABG Base Excess FiO2 Sodium 143.7 Potassium 3.4 L Chloride 112 H Carbon Dioxide 23 Anion Gap 9 BUN 12 Creatinine 0.71 Est GFR ( Amer) > 60 Est GFR (Non-Af Amer) > 60 Glucose 84 Calcium 7.1 L Magnesium Total Bilirubin 0.8 AST 35 ALT 39 Alkaline Phosphatase 63 Total Protein 4.3 L Albumin 2.2 L Amylase < 30 L Lipase 11.5 L Urine Color Urine Appearance Urine pH Ur Specific [place] Urine Protein Urine Glucose (UA) Urine Ketones Urine Blood Urine Nitrite Ur Leukocyte Esterase Urine WBC (Auto) Urine RBC (Auto) Blood Type A POSITIVE Antibody Screen NEGATIVE 12/25/16 12/25/16 12/26/16 17:46 18:02 06:00 WBC 19.3 H RBC 3.72 Hgb 10.9 L Hct 32.2 L MCV 87 MCH 29.3 MCHC 33.8 RDW 14.0 Plt Count 336 Seg Neutrophils % 84.2 H Lymphocytes % 6.2 L Monocytes % 7.7 Eosinophils % 1.7 Basophils % 0.2 Absolute Neutrophils 16.2 H Absolute Lymphocytes 1.2 Absolute Monocytes 1.5 H Absolute Eosinophils 0.3 Absolute Basophils 0.0 Carbonic Acid 1.38 H HCO3/H2CO3 Ratio 15:1 ABG pH 7.30 L ABG pCO2 45.9 H ABG pO2 71.3 L ABG HCO3 21.9 ABG O2 Saturation 92.6 L ABG Base Excess -4.5 FiO2 45% Sodium Potassium Chloride Carbon Dioxide Anion Gap BUN Creatinine Est GFR ( Amer) Est GFR (Non-Af Amer) Glucose Calcium Magnesium Total Bilirubin AST ALT Alkaline Phosphatase Total Protein Albumin Amylase Lipase Urine Color YELLOW Urine Appearance CLEAR Urine pH 5.0 Ur Specific [place] 1.028 Urine Protein 30 H Urine Glucose (UA) NEGATIVE Urine Ketones TRACE H Urine Blood NEGATIVE Urine Nitrite NEGATIVE Ur Leukocyte Esterase TRACE H Urine WBC (Auto) 10 Urine RBC (Auto) 3 Blood Type Antibody Screen 12/26/16 12/26/16 06:00 06:00 WBC RBC Hgb Hct MCV MCH MCHC RDW Plt Count Seg Neutrophils % Lymphocytes % Monocytes % Eosinophils % Basophils % Absolute Neutrophils Absolute Lymphocytes Absolute Monocytes Absolute Eosinophils Absolute Basophils Carbonic Acid 1.33 HCO3/H2CO3 Ratio 14:1 ABG pH 7.27 L ABG pCO2 44.2 ABG pO2 88.7 ABG HCO3 19.8 L ABG O2 Saturation 95.6 ABG Base Excess -6.9 FiO2 45% Sodium 144.6 Potassium 3.2 L Chloride 111 H Carbon Dioxide 21 L Anion Gap 13 BUN 10 Creatinine 0.76 Est GFR ( Amer) > 60 Est GFR (Non-Af Amer) > 60 Glucose 116 H Calcium 7.7 L Magnesium 1.9 Total Bilirubin 0.5 AST 27 ALT 34 Alkaline Phosphatase 72 Total Protein 4.5 L Albumin 2.3 L Amylase Lipase Urine Color Urine Appearance Urine pH Ur Specific [place] Urine Protein Urine Glucose (UA) Urine Ketones Urine Blood Urine Nitrite Ur Leukocyte Esterase Urine WBC (Auto) Urine RBC (Auto) Blood Type Antibody Screen 12/25/16 14:49 Troponin I < 0.012 Impressions: Acute Abdomen Series 12/22/16 19:25 IMPRESSION: NO RADIOGRAPHIC EVIDENCE FOR ACUTE ABDOMINAL DISEASE.Nonobstructive pattern. Lung Scan-VQ NM 12/23/16 00:00 IMPRESSION: NORMAL VENTILATION-PERFUSION LUNG SCAN. NEGATIVE FOR PULMONARY EMBOLI. Abdomen/Pelvis CT 12/23/16 14:35 IMPRESSION: 1. Increasing free fluid within the abdomen surrounding the liver , in the lesser sac and in the pelvis. There is no air to suggest abscess. 2. Right lower lobe pneumonia. Hepatobiliary Scan Nuclear Medicine 12/24/16 00:00 IMPRESSION: Contained bile leak in the surgical bed. KUB X-Ray 12/25/16 10:38 IMPRESSION: Post bile leak repair. Right subphrenic and right gallbladder fossa surgical drains are in place. Nonobstructive bowel gas pattern. Nasogastric tube, Hill catheter in good positioning Chest X-Ray 12/26/16 06:00 IMPRESSION: STABLE APPEARANCE OF THE CHEST. SUPPORT DEVICES UNCHANGED.
[2016-12-26] MEDS: PIPERACILLIN SODIUM/TAZOBACTAM 4.5 GM in NORMAL SALINE 100 ML IV SCH ×3 (09:55→21:27)
--- NOTE | 2016-12-26 10:16 | PDOC PROGRESS REPORT ---
Subjective Progress Note for:: 12/26/16 Physical Exam Vital Signs: Temp Pulse Resp BP Pulse Ox 98.6 F 57 L 14 110/67 98 12/26/16 06:38 12/26/16 02:00 12/26/16 02:00 12/26/16 06:24 12/26/16 06:30 Intake & Output 12/25/16 12/26/16 12/27/16 06:59 06:59 06:59 Intake Total 250 6355 Output Total 4627 Balance 250 1728 Weight 76.5 kg 85.7 kg Results Laboratory Results: 12/26/16 06:00 12/26/16 06:00 12/25/16 12/25/16 12/25/16 17:30 17:30 17:46 WBC 19.1 H RBC 3.72 Hgb 10.7 L Hct 32.0 L MCV 86 MCH 28.7 MCHC 33.3 RDW 13.6 Plt Count 241 Seg Neutrophils % 86.6 H Lymphocytes % 5.7 L Monocytes % 6.9 Eosinophils % 0.6 Basophils % 0.2 Absolute Neutrophils 16.5 H Absolute Lymphocytes 1.1 Absolute Monocytes 1.3 Absolute Eosinophils 0.1 Absolute Basophils 0.0 Carbonic Acid 1.38 H HCO3/H2CO3 Ratio 15:1 ABG pH 7.30 L ABG pCO2 45.9 H ABG pO2 71.3 L ABG HCO3 21.9 ABG O2 Saturation 92.6 L ABG Base Excess -4.5 FiO2 45% Sodium 143.7 Potassium 3.4 L Chloride 112 H Carbon Dioxide 23 Anion Gap 9 BUN 12 Creatinine 0.71 Est GFR ( Amer) > 60 Est GFR (Non-Af Amer) > 60 Glucose 84 Calcium 7.1 L Magnesium Total Bilirubin 0.8 AST 35 ALT 39 Alkaline Phosphatase 63 Total Protein 4.3 L Albumin 2.2 L Amylase < 30 L Lipase 11.5 L Urine Color Urine Appearance Urine pH Ur Specific [place] Urine Protein Urine Glucose (UA) Urine Ketones Urine Blood Urine Nitrite Ur Leukocyte Esterase Urine WBC (Auto) Urine RBC (Auto) 12/25/16 12/26/16 12/26/16 18:02 06:00 06:00 WBC 19.3 H RBC 3.72 Hgb 10.9 L Hct 32.2 L MCV 87 MCH 29.3 MCHC 33.8 RDW 14.0 Plt Count 336 Seg Neutrophils % 84.2 H Lymphocytes % 6.2 L Monocytes % 7.7 Eosinophils % 1.7 Basophils % 0.2 Absolute Neutrophils 16.2 H Absolute Lymphocytes 1.2 Absolute Monocytes 1.5 H Absolute Eosinophils 0.3 Absolute Basophils 0.0 Carbonic Acid HCO3/H2CO3 Ratio ABG pH ABG pCO2 ABG pO2 ABG HCO3 ABG O2 Saturation ABG Base Excess FiO2 Sodium 144.6 Potassium 3.2 L Chloride 111 H Carbon Dioxide 21 L Anion Gap 13 BUN 10 Creatinine 0.76 Est GFR ( Amer) > 60 Est GFR (Non-Af Amer) > 60 Glucose 116 H Calcium 7.7 L Magnesium 1.9 Total Bilirubin 0.5 AST 27 ALT 34 Alkaline Phosphatase 72 Total Protein 4.5 L Albumin 2.3 L Amylase Lipase Urine Color YELLOW Urine Appearance CLEAR Urine pH 5.0 Ur Specific [place] 1.028 Urine Protein 30 H Urine Glucose (UA) NEGATIVE Urine Ketones TRACE H Urine Blood NEGATIVE Urine Nitrite NEGATIVE Ur Leukocyte Esterase TRACE H Urine WBC (Auto) 10 Urine RBC (Auto) 3 12/26/16 06:00 WBC RBC Hgb Hct MCV MCH MCHC RDW Plt Count Seg Neutrophils % Lymphocytes % Monocytes % Eosinophils % Basophils % Absolute Neutrophils Absolute Lymphocytes Absolute Monocytes Absolute Eosinophils Absolute Basophils Carbonic Acid 1.33 HCO3/H2CO3 Ratio 14:1 ABG pH 7.27 L ABG pCO2 44.2 ABG pO2 88.7 ABG HCO3 19.8 L ABG O2 Saturation 95.6 ABG Base Excess -6.9 FiO2 45% Sodium Potassium Chloride Carbon Dioxide Anion Gap BUN Creatinine Est GFR ( Amer) Est GFR (Non-Af Amer) Glucose Calcium Magnesium Total Bilirubin AST ALT Alkaline Phosphatase Total Protein Albumin Amylase Lipase Urine Color Urine Appearance Urine pH Ur Specific [place] Urine Protein Urine Glucose (UA) Urine Ketones Urine Blood Urine Nitrite Ur Leukocyte Esterase Urine WBC (Auto) Urine RBC (Auto) 12/25/16 14:49 Troponin I < 0.012 Impressions: Acute Abdomen Series 12/22/16 19:25 IMPRESSION: NO RADIOGRAPHIC EVIDENCE FOR ACUTE ABDOMINAL DISEASE.Nonobstructive pattern. Lung Scan-VQ NM 12/23/16 00:00 IMPRESSION: NORMAL VENTILATION-PERFUSION LUNG SCAN. NEGATIVE FOR PULMONARY EMBOLI. Abdomen/Pelvis CT 12/23/16 14:35 IMPRESSION: 1. Increasing free fluid within the abdomen surrounding the liver , in the lesser sac and in the pelvis. There is no air to suggest abscess. 2. Right lower lobe pneumonia. Hepatobiliary Scan Nuclear Medicine 12/24/16 00:00 IMPRESSION: Contained bile leak in the surgical bed. KUB X-Ray 12/25/16 10:38 IMPRESSION: Post bile leak repair. Right subphrenic and right gallbladder fossa surgical drains are in place. Nonobstructive bowel gas pattern. Nasogastric tube, Hill catheter in good positioning Chest X-Ray 12/26/16 06:00 IMPRESSION: STABLE APPEARANCE OF THE CHEST. SUPPORT DEVICES UNCHANGED. Assessment & Plan - Diagnosis (1) Postoperative bile leak Is this a current diagnosis for this admission?: Yes (2) Tobacco dependency Is this a current diagnosis for this admission?: Yes (3) Pneumonia Qualifiers: Laterality: right Lung location: lower lobe of lung Is this a current diagnosis for this admission?: Yes
[2016-12-26] MEDS: ALBUMIN HUMAN 50 ML IV SCH ×2 (11:01→12:06)
[2016-12-26 12:38] LABS: ARTERIAL BLOOD O2 SATURATION 92.9 % (94-98)
--- NOTE | 2016-12-26 14:30 | PDOC PROGRESS REPORT ---
Subjective Progress Note for:: 12/26/16 Subjective:: The patient was seen earlier today on rounds. The patient remains intubated. The patient is currently on norepinephrine and Sharan-Synephrine. Blood pressures up much improved and Levophed is being reduced. The patient is currently on pressure support. The patient is able to be aroused on 50 mics propofol. Patient's urine output had fallen off. CVPs have increased to 14-16. The patient does have edema in her upper extremities. Discussed findings on echo with Dr. Anglin who stated for the echo to be best interpreted he needed to examine the patient and therefore a consult was requested. The patient was also cemented Dr. Abraham and then adjust as were made accordingly. Physical Exam Vital Signs: Temp Pulse Resp BP Pulse Ox 100 F 64 14 110/67 98 12/26/16 14:00 12/26/16 10:00 12/26/16 02:00 12/26/16 06:24 12/26/16 10:00 Intake & Output 12/24/16 12/25/16 12/26/16 23:59 23:59 23:59 Intake Total 250 3219 3136 Output Total 3567 2440 Balance 250 -348 696 Weight 76.5 kg 85.7 kg General appearance: PRESENT: well-developed Head exam: PRESENT: atraumatic, normocephalic Eye exam: PRESENT: conjunctiva pink, periorbital swelling, PERRLA. ABSENT: scleral icterus Mouth exam: PRESENT: other - ET tube in place Neck exam: PRESENT: JVD - The level of the clavicle. ABSENT: tracheal deviation , tracheostomy Respiratory exam: PRESENT: decreased breath sounds - Right lung base, symmetrical - Mechanical Cardiovascular exam: PRESENT: RRR, +S1, +S2. ABSENT: tachycardia Pulses: PRESENT: +1 pedal pulses bilateral, other - Extremities are warm to the touch Vascular exam: PRESENT: normal capillary refill GI/Abdominal exam: PRESENT: diminished bowel sounds, distended, firm, other - Both Postoperative drains output as noted Rectal exam: PRESENT: deferred Gentrourinary exam: PRESENT: indwelling catheter - [place] urine Extremities exam: PRESENT: +1 edema - Bilateral upper extremities. ABSENT: clubbing, pedal edema Musculoskeletal exam: PRESENT: normal inspection Neurological exam: PRESENT: other - Intubated and sedated Skin exam: PRESENT: dry, intact, normal color. ABSENT: cyanosis, erythema, jaundice, mottled, pallor, petechiae Results Laboratory Results: 12/26/16 06:00 12/26/16 06:00 12/25/16 12/25/16 12/25/16 17:30 17:30 17:46 WBC 19.1 H RBC 3.72 Hgb 10.7 L Hct 32.0 L MCV 86 MCH 28.7 MCHC 33.3 RDW 13.6 Plt Count 241 Seg Neutrophils % 86.6 H Lymphocytes % 5.7 L Monocytes % 6.9 Eosinophils % 0.6 Basophils % 0.2 Absolute Neutrophils 16.5 H Absolute Lymphocytes 1.1 Absolute Monocytes 1.3 Absolute Eosinophils 0.1 Absolute Basophils 0.0 Carbonic Acid 1.38 H HCO3/H2CO3 Ratio 15:1 ABG pH 7.30 L ABG pCO2 45.9 H ABG pO2 71.3 L ABG HCO3 21.9 ABG O2 Saturation 92.6 L ABG Base Excess -4.5 FiO2 45% Sodium 143.7 Potassium 3.4 L Chloride 112 H Carbon Dioxide 23 Anion Gap 9 BUN 12 Creatinine 0.71 Est GFR ( Amer) > 60 Est GFR (Non-Af Amer) > 60 Glucose 84 Calcium 7.1 L Magnesium Total Bilirubin 0.8 AST 35 ALT 39 Alkaline Phosphatase 63 Total Protein 4.3 L Albumin 2.2 L Amylase < 30 L Lipase 11.5 L Urine Color Urine Appearance Urine pH Ur Specific [place] Urine Protein Urine Glucose (UA) Urine Ketones Urine Blood Urine Nitrite Ur Leukocyte Esterase Urine WBC (Auto) Urine RBC (Auto) 12/25/16 12/26/16 12/26/16 18:02 06:00 06:00 WBC 19.3 H RBC 3.72 Hgb 10.9 L Hct 32.2 L MCV 87 MCH 29.3 MCHC 33.8 RDW 14.0 Plt Count 336 Seg Neutrophils % 84.2 H Lymphocytes % 6.2 L Monocytes % 7.7 Eosinophils % 1.7 Basophils % 0.2 Absolute Neutrophils 16.2 H Absolute Lymphocytes 1.2 Absolute Monocytes 1.5 H Absolute Eosinophils 0.3 Absolute Basophils 0.0 Carbonic Acid HCO3/H2CO3 Ratio ABG pH ABG pCO2 ABG pO2 ABG HCO3 ABG O2 Saturation ABG Base Excess FiO2 Sodium 144.6 Potassium 3.2 L Chloride 111 H Carbon Dioxide 21 L Anion Gap 13 BUN 10 Creatinine 0.76 Est GFR ( Amer) > 60 Est GFR (Non-Af Amer) > 60 Glucose 116 H Calcium 7.7 L Magnesium 1.9 Total Bilirubin 0.5 AST 27 ALT 34 Alkaline Phosphatase 72 Total Protein 4.5 L Albumin 2.3 L Amylase Lipase Urine Color YELLOW Urine Appearance CLEAR Urine pH 5.0 Ur Specific [place] 1.028 Urine Protein 30 H Urine Glucose (UA) NEGATIVE Urine Ketones TRACE H Urine Blood NEGATIVE Urine Nitrite NEGATIVE Ur Leukocyte Esterase TRACE H Urine WBC (Auto) 10 Urine RBC (Auto) 3 12/26/16 12/26/16 06:00 12:15 WBC RBC Hgb Hct MCV MCH MCHC RDW Plt Count Seg Neutrophils % Lymphocytes % Monocytes % Eosinophils % Basophils % Absolute Neutrophils Absolute Lymphocytes Absolute Monocytes Absolute Eosinophils Absolute Basophils Carbonic Acid 1.33 1.19 HCO3/H2CO3 Ratio 14:1 19:1 ABG pH 7.27 L 7.38 ABG pCO2 44.2 39.4 ABG pO2 88.7 66.4 L ABG HCO3 19.8 L 22.9 ABG O2 Saturation 95.6 92.9 L ABG Base Excess -6.9 -2.0 FiO2 45% 40% Sodium Potassium Chloride Carbon Dioxide Anion Gap BUN Creatinine Est GFR ( Amer) Est GFR (Non-Af Amer) Glucose Calcium Magnesium Total Bilirubin AST ALT Alkaline Phosphatase Total Protein Albumin Amylase Lipase Urine Color Urine Appearance Urine pH Ur Specific [place] Urine Protein Urine Glucose (UA) Urine Ketones Urine Blood Urine Nitrite Ur Leukocyte Esterase Urine WBC (Auto) Urine RBC (Auto) 12/25/16 14:49 Troponin I < 0.012 Impressions: Acute Abdomen Series 12/22/16 19:25 IMPRESSION: NO RADIOGRAPHIC EVIDENCE FOR ACUTE ABDOMINAL DISEASE.Nonobstructive pattern. Lung Scan-VQ NM 12/23/16 00:00 IMPRESSION: NORMAL VENTILATION-PERFUSION LUNG SCAN. NEGATIVE FOR PULMONARY EMBOLI. Abdomen/Pelvis CT 12/23/16 14:35 IMPRESSION: 1. Increasing free fluid within the abdomen surrounding the liver , in the lesser sac and in the pelvis. There is no air to suggest abscess. 2. Right lower lobe pneumonia. Hepatobiliary Scan Nuclear Medicine 12/24/16 00:00 IMPRESSION: Contained bile leak in the surgical bed. KUB X-Ray 12/25/16 10:38 IMPRESSION: Post bile leak repair. Right subphrenic and right gallbladder fossa surgical drains are in place. Nonobstructive bowel gas pattern. Nasogastric tube, Hill catheter in good positioning Chest X-Ray 12/26/16 06:00 IMPRESSION: STABLE APPEARANCE OF THE CHEST. SUPPORT DEVICES UNCHANGED. Assessment & Plan - Diagnosis (1) Status post cholecystectomy Is this a current diagnosis for this admission?: Yes (2) Pneumonia Qualifiers: Laterality: right Lung location: lower lobe of lung Is this a current diagnosis for this admission?: YesPlan: The patient's chest x-ray did reveal stable chest possible few loza noted in the right low as well. Given the patient's fevers will expand antibiotic coverage. Do appreciate pulmonology's input with this. (3) Septic shock Is this a current diagnosis for this admission?: YesPlan: Secondary to the above. Will continue broad-spectrum antibiotic coverage. Cultures been negative. Will repeat CBC in the a.m. Doesn't appear patient's making lactic acid. Overall it appears the patient is volume up. Decrease IV fluids for now. Will give albumin given the patient's malnutrition and third spacing. (4) Coronary artery disease Qualifiers: Coronary Disease-Associated Artery/Lesion type: [place] artery [place] vs. transplanted heart: [place] heart Associated angina: without angina Qualified Code(s): I25.10 - Atherosclerotic heart disease of [place] coronary artery without angina pectoris Is this a current diagnosis for this admission?: YesPlan: The patient's EF is in the low-normal range. When findings a possible will consult cardiology. (5) Hypertension Qualifiers: Hypertension type: essential hypertension Qualified Code(s): I10 - Essential (primary) hypertension Is this a current diagnosis for this admission?: YesPlan: Hold home blood pressure medications for now (6) Tobacco dependency Is this a current diagnosis for this admission?: YesPlan: continue PRN nicotine patch. (7) Hypokalemia Is this a current diagnosis for this admission?: YesPlan: Will replete this and repeat labs this afternoon. - Time Time Spent with patient: on this visit including assessment, plan, physical examination, family meeting, and specialty collaboration, and patient education is 35 minutes. Critical Time spent with patient: 35 or more minutes Medications reviewed and adjusted accordingly: Yes Disposition: The patient is a full code. Pending patient's symptomatology and diagnostic findings will reevaluate in the a.m.
--- NOTE | 2016-12-26 14:37 | PDOC CONSULTATION ---
Consultation Consult Date: 12/26/16 Attending physician:: AYANNA PACKER Consult reason:: Abnormal echocardiogram, hypotension History of Present Illness Admission Date/PCP: 12/24/16 16:00 ADIEL HARDIN Patient complains of: Patient intubated and sedated. Attending needed help with management of Cardec status, because of hypotension, abnormal echocardiogram and patient needing IV albumin infusion as to whether patient can tolerate such therapy. History of Present Illness: No history available from the patient. No family member available at bedside. Previous consultations, reports reviewed. Patient's nurse interviewed. In summary DIANE SALINAS is a 61 year old female with a past medical history of coronary artery disease. Patient presented to the emergency department by EMS for chief complaint of pain in her mid to upper right abdomen and upper midabdomen with vomiting. Patient stated she was 5 days postop cholecystectomy by Dr. Harding. She states she is taking Toradol for pain at home, states she was doing well until took a couple of bites of dinner and suddenly began having sharp persistent abdominal pain with vomiting which has not improved. Given 4 mg Zofran by EMS. Patient states she had a normal-looking bowel movement today , denies blood in vomit, denies fever. PMH hysterectomy, [place] with stent, hypertension. On presentation the patient was found to have normal LFTs, normal lipase, she was not making lactic acid however white count was 15,000. The patient was seen and examined by surgicalist and admitted to the service. The morning of the patient became short of breath and therefore was referred to the hospitalist for consultation. This history was reviewed. Patient had echocardiogram yesterday for evaluation of pleural effusion. Echocardiogram showed possibility of ventricular septal defect. Patient also has been hypotensive on vasopressors. Patient also is scheduled to receive albumin intravenously. I was therefore asked to evaluate this patient. When I saw the patient this morning, she was intubated, sedated, no family members at bedside. History obtained by review of chart and talking to the nurse taking care of the patient today. Past Medical History Cardiac Medical History: Reports: Myocardial Infarction - CARDIAC STENT x1, Hypertension Denies: Coronary Artery Disease Pulmonary Medical History: Denies: Asthma, Bronchitis, Chronic Obstructive Pulmonary Disease (COPD), Pneumonia Neurological Medical History: Denies: Seizures GI Medical History: Denies: Hepatitis, Hiatal Hernia Musculoskeltal Medical History: Denies: Arthritis Hematology: Denies: Anemia, Sickle Cell Disease Past Surgical History Past Surgical History: Reports: Cholecystectomy, Hysterectomy Denies: Amputation, Mastectomy, Pacemaker Social History Information Source: [facility] Records Lives with: Family Smoking Status: Current Some Day Smoker Cigarettes Packs Per Day: 2 Number of Years Smokin Last Time Smoked: 12/21/16 Frequency of Alcohol Use: Occasional Hx Recreational Drug Use: No Hx Prescription Drug Abuse: No - Advance Directive Resuscitation Status: Full Code Surrogate healthcare decision maker:: Miley Portillo Family History Family History: Reviewed & Not Pertinent Parental Family History Reviewed: No - no family members available to review this. Children Family History Reviewed: No Sibling(s) Family History Reviewed.: No Medication/Allergy Home Medications: Amlodipine Besylate [Norvasc 2.5 mg Tablet] 2.5 mg PO DAILY 12/23/16 Aspirin [Aspirin 81 mg Chewable Tablet] 81 mg PO DAILY 12/23/16 Atorvastatin Calcium [Lipitor 40 mg Tablet] 40 mg PO QHS 12/23/16 Clopidogrel Bisulfate [Plavix 75 mg Tablet] 75 mg PO DAILY 12/23/16 Enalapril Maleate [Vasotec 20 mg Tablet] 20 mg PO DAILY 12/23/16 Metoprolol Tartrate [Lopressor 25 mg Tablet] 12.5 mg PO Q12 12/23/16 Allergies/Adverse Reactions: No Known Allergies Allergy (Verified 12/14/16 08:04) Review of Systems ROS unobtainable: Due to endotracheal tube Physical Exam Vital Signs: Temp Pulse Resp BP Pulse Ox 100 F 64 14 110/67 98 12/26/16 14:00 12/26/16 10:00 12/26/16 02:00 12/26/16 06:24 12/26/16 10:00 Intake & Output 12/25/16 12/26/16 12/27/16 06:59 06:59 06:59 Intake Total 250 6355 Output Total 4699 1380 Balance 250 3558 -1380 Weight 76.5 kg 85.7 kg Exam: GENERAL: well-nourished and in no acute distress. Patient is intubated and sedated. Orientation cannot be checked HEAD: Atraumatic, normocephalic. EYES: Pupils equal round and reactive to light, extraocular movements could not be checked, sclera anicteric, conjunctiva are normal. ENT: TMs normal, nares patent, oropharynx clear without exudates. Moist mucous membranes. No oral ulcerations or bleeding gums noted NECK: supple without lymphadenopathy or JVD. Trachea is central. No cervical or axillary lymphadenopathy noted. Carotids are 2+ LUNGS: Breath sounds mostly clear to auscultation patient is noted to have bibasal crackles at the extreme bases CHEST: Palpation of the chest wall shows no significant chest wall tenderness or abnormalities. HEART: [place] [employer], No PSH, 2/6 MARLEE aortic area, 1/6 mckinley systolic murmur mitral area , no rubs or gallops. ABDOMEN: Soft, mildly distended, no significant tenderness appreciated, normoactive bowel sounds. No guarding, no rebound. No rigidity noted . No masses appreciated. Drainage tubes noted. EXTREMITIES: Pedal pulses are 1-2+, no calf tenderness noted, 1+ pedal edema noted. No clubbing or cyanosis. NEUROLOGICAL: The patient cannot participate in the neurological exam but no facial asymmetry noted. Extremities slightly hypotonic PSYCH: This cannot be evaluated. Patient cannot participate. SKIN: No significant ecchymosis, rash, or signs of pruritus noted. MUSCULOSKELETAL EXAM: No significant joint swelling noted. Patient cannot participate in musculoskeletal exam Results Laboratory Results: 12/26/16 06:00 12/26/16 06:00 12/25/16 12/25/16 12/25/16 17:30 17:30 17:46 WBC 19.1 H RBC 3.72 Hgb 10.7 L Hct 32.0 L MCV 86 MCH 28.7 MCHC 33.3 RDW 13.6 Plt Count 241 Seg Neutrophils % 86.6 H Lymphocytes % 5.7 L Monocytes % 6.9 Eosinophils % 0.6 Basophils % 0.2 Absolute Neutrophils 16.5 H Absolute Lymphocytes 1.1 Absolute Monocytes 1.3 Absolute Eosinophils 0.1 Absolute Basophils 0.0 Carbonic Acid 1.38 H HCO3/H2CO3 Ratio 15:1 ABG pH 7.30 L ABG pCO2 45.9 H ABG pO2 71.3 L ABG HCO3 21.9 ABG O2 Saturation 92.6 L ABG Base Excess -4.5 FiO2 45% Sodium 143.7 Potassium 3.4 L Chloride 112 H Carbon Dioxide 23 Anion Gap 9 BUN 12 Creatinine 0.71 Est GFR ( Amer) > 60 Est GFR (Non-Af Amer) > 60 Glucose 84 Calcium 7.1 L Magnesium Total Bilirubin 0.8 AST 35 ALT 39 Alkaline Phosphatase 63 Total Protein 4.3 L Albumin 2.2 L Amylase < 30 L Lipase 11.5 L Urine Color Urine Appearance Urine pH Ur Specific [place] Urine Protein Urine Glucose (UA) Urine Ketones Urine Blood Urine Nitrite Ur Leukocyte Esterase Urine WBC (Auto) Urine RBC (Auto) 12/25/16 12/26/16 12/26/16 18:02 06:00 06:00 WBC 19.3 H RBC 3.72 Hgb 10.9 L Hct 32.2 L MCV 87 MCH 29.3 MCHC 33.8 RDW 14.0 Plt Count 336 Seg Neutrophils % 84.2 H Lymphocytes % 6.2 L Monocytes % 7.7 Eosinophils % 1.7 Basophils % 0.2 Absolute Neutrophils 16.2 H Absolute Lymphocytes 1.2 Absolute Monocytes 1.5 H Absolute Eosinophils 0.3 Absolute Basophils 0.0 Carbonic Acid HCO3/H2CO3 Ratio ABG pH ABG pCO2 ABG pO2 ABG HCO3 ABG O2 Saturation ABG Base Excess FiO2 Sodium 144.6 Potassium 3.2 L Chloride 111 H Carbon Dioxide 21 L Anion Gap 13 BUN 10 Creatinine 0.76 Est GFR ( Amer) > 60 Est GFR (Non-Af Amer) > 60 Glucose 116 H Calcium 7.7 L Magnesium 1.9 Total Bilirubin 0.5 AST 27 ALT 34 Alkaline Phosphatase 72 Total Protein 4.5 L Albumin 2.3 L Amylase Lipase Urine Color YELLOW Urine Appearance CLEAR Urine pH 5.0 Ur Specific [place] 1.028 Urine Protein 30 H Urine Glucose (UA) NEGATIVE Urine Ketones TRACE H Urine Blood NEGATIVE Urine Nitrite NEGATIVE Ur Leukocyte Esterase TRACE H Urine WBC (Auto) 10 Urine RBC (Auto) 3 12/26/16 12/26/16 06:00 12:15 WBC RBC Hgb Hct MCV MCH MCHC RDW Plt Count Seg Neutrophils % Lymphocytes % Monocytes % Eosinophils % Basophils % Absolute Neutrophils Absolute Lymphocytes Absolute Monocytes Absolute Eosinophils Absolute Basophils Carbonic Acid 1.33 1.19 HCO3/H2CO3 Ratio 14:1 19:1 ABG pH 7.27 L 7.38 ABG pCO2 44.2 39.4 ABG pO2 88.7 66.4 L ABG HCO3 19.8 L 22.9 ABG O2 Saturation 95.6 92.9 L ABG Base Excess -6.9 -2.0 FiO2 45% 40% Sodium Potassium Chloride Carbon Dioxide Anion Gap BUN Creatinine Est GFR ( Amer) Est GFR (Non-Af Amer) Glucose Calcium Magnesium Total Bilirubin AST ALT Alkaline Phosphatase Total Protein Albumin Amylase Lipase Urine Color Urine Appearance Urine pH Ur Specific [place] Urine Protein Urine Glucose (UA) Urine Ketones Urine Blood Urine Nitrite Ur Leukocyte Esterase Urine WBC (Auto) Urine RBC (Auto) 12/25/16 14:49 Troponin I < 0.012 EKG Comments: 12-lead EKG not available for review during this admission. Impressions: Acute Abdomen Series 12/22/16 19:25 IMPRESSION: NO RADIOGRAPHIC EVIDENCE FOR ACUTE ABDOMINAL DISEASE.Nonobstructive pattern. Lung Scan-VQ NM 12/23/16 00:00 IMPRESSION: NORMAL VENTILATION-PERFUSION LUNG SCAN. NEGATIVE FOR PULMONARY EMBOLI. Abdomen/Pelvis CT 12/23/16 14:35 IMPRESSION: 1. Increasing free fluid within the abdomen surrounding the liver , in the lesser sac and in the pelvis. There is no air to suggest abscess. 2. Right lower lobe pneumonia. Hepatobiliary Scan Nuclear Medicine 12/24/16 00:00 IMPRESSION: Contained bile leak in the surgical bed. KUB X-Ray 12/25/16 10:38 IMPRESSION: Post bile leak repair. Right subphrenic and right gallbladder fossa surgical drains are in place. Nonobstructive bowel gas pattern. Nasogastric tube, Hill catheter in good positioning Chest X-Ray 12/26/16 06:00 IMPRESSION: STABLE APPEARANCE OF THE CHEST. SUPPORT DEVICES UNCHANGED. Assessment & Plan - Diagnosis (2) Hypotension (arterial) Qualifiers: Hypotension type: unspecified hypotension type Qualified Code(s): I95.9 - Hypotension, unspecified Is this a current diagnosis for this admission?: Yes (3) Coronary artery disease Qualifiers: Coronary Disease-Associated Artery/Lesion type: [place] artery [place] vs. transplanted heart: [place] heart Associated angina: without angina Qualified Code(s): I25.10 - Atherosclerotic heart disease of [place] coronary artery without angina pectoris Is this a current diagnosis for this admission?: Yes (4) Hypertension Qualifiers: Hypertension type: essential hypertension Qualified Code(s): I10 - Essential (primary) hypertension Is this a current diagnosis for this admission?: Yes (5) Pneumonia Qualifiers: Laterality: right Lung location: lower lobe of lung Is this a current diagnosis for this admission?: Yes (6) Postoperative bile leak Is this a current diagnosis for this admission?: Yes (7) Septic shock Is this a current diagnosis for this admission?: Yes (8) Status post cholecystectomy Is this a current diagnosis for this admission?: Yes - Notes Notes: Abnormal echocardiogram: Echocardiogram report suggested possible small VSD versus artifactual finding. Patient on exam was noted to have no significant murmur therefore doubt presence of any ventricular septal defect. I feel abnormality noted on echocardiogram was artifactual. Hypotension: Most likely related to sepsis. 2-D echo revealed relatively well- preserved LVEF at the low normal limit. Continue with vasopressors. Agree with albumin infusion to boost up intravascular. Feel that patient will be able to tolerate intravenous albumin. Coronary artery disease: Will obtain 2-D echo. Recommend restarting aspirin and Plavix when feasible from surgical standpoint. We will also recommend starting beta filiberto and SPENCER inhibitor as when feasible and when hypotension improves. Hypertension: Patient currently hypotensive. Antihypertensive on hold. Pneumonia: Patient noted to have right basal pneumonia along with some associated right pleural effusion. Septic shock: Continue antibiotic therapy. Status post cholecystectomy with postop bile leak. Patient being managed by surgeons. Right pleural effusion: Possible parapneumonic versus possible CHF, low albumin related. Continue to observe closely. - Time Time Spent: 50 to 70 Minutes - CODE STATUS was discussed, patient remains full code. Surrogate decision-maker Miley Portillo. Multiple medical problems were addressed.More than 50% of the time spent coordinating care, discussing management plans with involved caregivers. Management plans discussed with involved personnels. Medical decision making was of moderate to high complexity , patient's has multiple severe comorbidities. Medications reviewed and adjusted accordingly: Yes
[2016-12-26 14:51] LABS: ANION GAP 11 (5-19); BLOOD UREA NITROGEN 8 mg/dL (7-20); CALCIUM 8.1 mg/dL (8.4-10.2); CARBON DIOXIDE 23 mmol/L (22-30); CHLORIDE 111 mmol/L (98-107); CREATININE RESULT 0.77 mg/dL (0.52-1.25); GLUCOSE 90 mg/dL (75-110); POTASSIUM 3.3 mmol/L (3.6-5.0)
[2016-12-26] MEDS ORDERED: POTASSI CL 20 MEQ/50 ML RIDER 50 ML IV ONE (16:52)
[2016-12-26] MEDS: VANCOMYCIN HCL 1,250 MG in DEXTROSE 5%-WATER 250 ML IV SCH (16:54)
[2016-12-26] MEDS: ATORVASTATIN CALCIUM 40 MG TABLET NG SCH (21:27)
[2016-12-27] MEDS: PROPOFOL 100 ML IV PRN ×6 (01:43→21:54)
[2016-12-27] MEDS: IPRATROPIUM/ALBUTEROL 0.5-2.5 MG/3 ML AMPUL NEB SCH ×4 (01:59→20:42)
[2016-12-27] MEDS: PIPERACILLIN SODIUM/TAZOBACTAM 4.5 GM in NORMAL SALINE 100 ML IV SCH ×4 (02:54→20:35)
[2016-12-27] MEDS: VANCOMYCIN HCL 1,250 MG in DEXTROSE 5%-WATER 250 ML IV SCH ×2 (03:53→16:54)
[2016-12-27] MEDS: HYDROMORPHONE HCL INJ/PF 2 MG/ML AMPULE IV PRN ×2 (03:54→15:05)
[2016-12-27 05:38] LABS: ARTERIAL BLOOD BASE EXCESS -3.7 mmol/L; ARTERIAL BLOOD O2 SATURATION 94.5 % (94-98)
[2016-12-27 05:40] LABS: ABSOLUTE EOSINOPHILS # (AUTO) 0.3 10^3/uL (0.0-0.6); ABSOLUTE LYMPHOCYTES (AUTO) 0.8 10^3/uL (0.5-4.7); ABSOLUTE MONOCYTES (AUTO) 0.8 10^3/uL (0.1-1.4); BASOPHILS % (AUTO) 0.3 % (0-2); EOSINOPHILS % (AUTO) 2.5 % (0-6); HEMATOCRIT 29.5 % (36.0-47.0); HGB HCT DIFFERENCE 0.5; LYMPHOCYTES % (AUTO) 7.1 % (13-45); MEAN CORPUSCULAR HEMOGLOBIN 29.1 pg (27.0-33.4); MEAN CORPUSCULAR HGB CONC 33.8 g/dL (32.0-36.0); MEAN CORPUSCULAR VOLUME 86 fl (80-97); MONOCYTES % (AUTO) 6.8 % (3-13); RED BLOOD COUNT 3.43 10^6/uL (3.72-5.28); RED CELL DISTRIBUTION WIDTH 13.8 % (11.5-14.0); SEGMENTED NEUTROPHILS % (AUTO) 83.3 % (42-78)
[2016-12-27 05:59] LABS: ALANINE AMINOTRANSFERASE 32 U/L (9-52); ALBUMIN 2.2 g/dL (3.5-5.0); ALKALINE PHOSPHATASE 65 U/L (38-126); ANION GAP 11 (5-19); ASPARTATE AMINO TRANSFERASE 18 U/L (14-36); BILIRUBIN,DIRECT 0.2 mg/dL (0.0-0.4); BILIRUBIN,TOTAL 0.4 mg/dL (0.2-1.3); BLOOD UREA NITROGEN 7 mg/dL (7-20); CALCIUM 7.9 mg/dL (8.4-10.2); CARBON DIOXIDE 23 mmol/L (22-30); CHLORIDE 111 mmol/L (98-107); CREATININE RESULT 0.69 mg/dL (0.52-1.25); GLUCOSE 117 mg/dL (75-110); SODIUM 144.5 mmol/L (137-145); TOTAL PROTEIN 4.2 g/dL (6.3-8.2); TRIGLYCERIDES 124 mg/dL (<150)
[2016-12-27] MEDS ORDERED: POTASSI CL 20 MEQ/50 ML RIDER 20 MEQ/50 ML RTUPB IV ONE (06:32)
[2016-12-27] MEDS: DEXTROSE 5%-WATER 250 ML with PHENYLEPHRINE HCL 40 MG IV PRN ×4 (06:34→20:35)
[2016-12-27] MEDS: POTASSI CL 20 MEQ/50 ML RIDER 20 MEQ/50 ML RTUPB IV SCH ×3 (08:00→11:00)
[2016-12-27] MEDS: POTASSI CL 20 MEQ/1/2NS 1L 20 MEQ/1,000 ML RTUINJ IV PRN ×2 (08:03→21:54)
[2016-12-27] MEDS ORDERED: FUROSEMIDE INJ/PF 40 MG/4 ML SDV IV ONE (08:48)
[2016-12-27] MEDS: ASPIRIN 81 MG TABLET, CHEWABLE NG SCH (09:46)
[2016-12-27] MEDS: ENALAPRIL MALEATE 10 MG TABLET NG SCH (09:47)
[2016-12-27] MEDS: METOPROLOL TARTRATE 25 MG TABLET NG SCH ×2 (09:47→21:56)
[2016-12-27] MEDS: FLUTICASONE NASAL SPRAY 50 MCG/SPRY 120 SPRAY/16 GM NASL SCH ×2 (09:47→21:56)
[2016-12-27] MEDS: AMLODIPINE BESYLATE 2.5 MG TABLET NG SCH (09:47)
--- NOTE | 2016-12-27 10:46 | PDOC PROGRESS REPORT ---
Subjective Progress Note for:: 12/27/16 Subjective:: Patient general status about the same. She remains intubated and sedated. She is however on less vasopressor support than before. Chest x-ray reviewed shows right basal opacities most likely pleural effusion versus pneumonia. Patient's lab work reviewed. White cell count is coming down. Patient's mental status and responsiveness about same as yesterday. Physical Exam Vital Signs: Temp Pulse Resp BP Pulse Ox 99.3 F 51 L 18 118/61 97 12/27/16 08:00 12/27/16 10:00 12/27/16 10:00 12/27/16 10:10 12/27/16 10:15 Intake & Output 12/26/16 12/27/16 12/28/16 06:59 06:59 06:59 Intake Total 6355 3664 Output Total 4627 3215 305 Balance 1728 449 -305 Weight 85.7 kg 87.1 kg Exam: GENERAL: well-nourished and in no acute distress. Patient is intubated and sedated. Orientation cannot be checked HEAD: Atraumatic, normocephalic. EYES: Pupils equal round and reactive to light, extraocular movements could not be checked, sclera anicteric, conjunctiva are normal. ENT: TMs normal, nares patent, oropharynx clear without exudates. Moist mucous membranes. No oral ulcerations or bleeding gums noted NECK: supple without lymphadenopathy or JVD. Trachea is central. No cervical or axillary lymphadenopathy noted. Carotids are 2+ LUNGS: Breath sounds mostly clear to auscultation patient is noted to have bibasal crackles at the extreme bases. Mild right basal dullness is noted. CHEST: Palpation of the chest wall shows no significant chest wall tenderness or abnormalities. HEART: [place] [employer], No PSH, 2/6 MARLEE aortic area, 1/6 mckinley systolic murmur mitral area , no rubs or gallops. ABDOMEN: Soft, no significant tenderness appreciated, normoactive bowel sounds. No guarding, no rebound. No rigidity noted . No masses appreciated. EXTREMITIES: Pedal pulses are 1-2+, no calf tenderness noted, 1+ pedal edema noted. No clubbing or cyanosis. 1+ generalized edema noted. NEUROLOGICAL: The patient cannot participate in the neurological exam but no facial asymmetry noted. Extremities slightly hypotonic PSYCH: This cannot be evaluated. Patient cannot participate. SKIN: No significant ecchymosis, rash, or signs of pruritus noted. MUSCULOSKELETAL EXAM: No significant joint swelling noted. Patient cannot participate in musculoskeletal exam Results Laboratory Results: 12/27/16 05:20 12/27/16 05:20 12/26/16 12/26/16 12/27/16 12:15 14:10 05:20 WBC 12.0 H RBC 3.43 L Hgb 10.0 L Hct 29.5 L MCV 86 MCH 29.1 MCHC 33.8 RDW 13.8 Plt Count 290 Seg Neutrophils % 83.3 H Lymphocytes % 7.1 L Monocytes % 6.8 Eosinophils % 2.5 Basophils % 0.3 Absolute Neutrophils 10.0 H Absolute Lymphocytes 0.8 Absolute Monocytes 0.8 Absolute Eosinophils 0.3 Absolute Basophils 0.0 Carbonic Acid 1.19 HCO3/H2CO3 Ratio 19:1 ABG pH 7.38 ABG pCO2 39.4 ABG pO2 66.4 L ABG HCO3 22.9 ABG O2 Saturation 92.9 L ABG Base Excess -2.0 FiO2 40% Sodium 145.0 Potassium 3.3 L Chloride 111 H Carbon Dioxide 23 Anion Gap 11 BUN 8 Creatinine 0.77 Est GFR ( Amer) > 60 Est GFR (Non-Af Amer) > 60 Glucose 90 Lactic Acid Calcium 8.1 L Magnesium Total Bilirubin AST ALT Alkaline Phosphatase Total Protein Albumin Triglycerides 12/27/16 12/27/16 12/27/16 05:20 05:20 05:20 WBC RBC Hgb Hct MCV MCH MCHC RDW Plt Count Seg Neutrophils % Lymphocytes % Monocytes % Eosinophils % Basophils % Absolute Neutrophils Absolute Lymphocytes Absolute Monocytes Absolute Eosinophils Absolute Basophils Carbonic Acid 1.13 HCO3/H2CO3 Ratio 18:1 ABG pH 7.37 ABG pCO2 37.6 ABG pO2 73.8 L ABG HCO3 21.2 ABG O2 Saturation 94.5 ABG Base Excess -3.7 FiO2 35% Sodium 144.5 Potassium 3.0 L* Chloride 111 H Carbon Dioxide 23 Anion Gap 11 BUN 7 Creatinine 0.69 Est GFR ( Amer) > 60 Est GFR (Non-Af Amer) > 60 Glucose 117 H Lactic Acid 0.7 Calcium 7.9 L Magnesium 2.0 Total Bilirubin 0.4 AST 18 ALT 32 Alkaline Phosphatase 65 Total Protein 4.2 L Albumin 2.2 L Triglycerides 124 12/25/16 14:49 Troponin I < 0.012 Impressions: Acute Abdomen Series 12/22/16 19:25 IMPRESSION: NO RADIOGRAPHIC EVIDENCE FOR ACUTE ABDOMINAL DISEASE.Nonobstructive pattern. Lung Scan-VQ NM 12/23/16 00:00 IMPRESSION: NORMAL VENTILATION-PERFUSION LUNG SCAN. NEGATIVE FOR PULMONARY EMBOLI. Abdomen/Pelvis CT 12/23/16 14:35 IMPRESSION: 1. Increasing free fluid within the abdomen surrounding the liver , in the lesser sac and in the pelvis. There is no air to suggest abscess. 2. Right lower lobe pneumonia. Hepatobiliary Scan Nuclear Medicine 12/24/16 00:00 IMPRESSION: Contained bile leak in the surgical bed. KUB X-Ray 12/25/16 10:38 IMPRESSION: Post bile leak repair. Right subphrenic and right gallbladder fossa surgical drains are in place. Nonobstructive bowel gas pattern. Nasogastric tube, Hill catheter in good positioning Chest X-Ray 12/27/16 06:00 IMPRESSION: 1. Support tubes and lines as above. 2. Bibasilar hazy opacities likely representing combination of atelectasis/ infiltrate with associated effusions similar in the right lung base and slightly progressed in the left lung base. There is mild pulmonary vascular congestion centrally. Assessment & Plan - Diagnosis (2) Hypotension (arterial) Qualifiers: Hypotension type: unspecified hypotension type Qualified Code(s): I95.9 - Hypotension, unspecified Is this a current diagnosis for this admission?: Yes (3) Coronary artery disease Qualifiers: Coronary Disease-Associated Artery/Lesion type: [place] artery [place] vs. transplanted heart: [place] heart Associated angina: without angina Qualified Code(s): I25.10 - Atherosclerotic heart disease of [place] coronary artery without angina pectoris Is this a current diagnosis for this admission?: Yes (4) Hypertension Qualifiers: Hypertension type: essential hypertension Qualified Code(s): I10 - Essential (primary) hypertension Is this a current diagnosis for this admission?: Yes (5) Pneumonia Qualifiers: Laterality: right Lung location: lower lobe of lung Is this a current diagnosis for this admission?: Yes (6) Postoperative bile leak Is this a current diagnosis for this admission?: Yes (7) Septic shock Is this a current diagnosis for this admission?: Yes (8) Status post cholecystectomy Is this a current diagnosis for this admission?: Yes - Notes Notes: Abnormal echocardiogram: Patient on exam was noted to have no significant murmur therefore doubt presence of any ventricular septal defect. I feel abnormality noted on echocardiogram was artifactual. LVEF is at the lower limit of normal. Hypotension: Most likely related to sepsis. 2-D echo revealed relatively well- preserved LVEF at the low normal limit. Continue with vasopressors. Agree with albumin infusion to boost up intravascular. Feel that patient will be able to tolerate intravenous albumin. Recommend gradually tapering off vasopressors. We will consider adding Midodrin if needed. Coronary artery disease: Recommend restarting aspirin and Plavix when feasible from surgical standpoint. We will also recommend starting beta filiberto and SPENCER inhibitor as when feasible and when hypotension improves. Hypertension: Patient currently hypotensive. Antihypertensive on hold. Pneumonia: Patient noted to have right basal pneumonia along with some associated right pleural effusion. Chest x-ray is stable to improved. Septic shock: Continue antibiotic therapy. Status post cholecystectomy with postop bile leak. Patient being managed by surgeons. Right pleural effusion: Possible parapneumonic versus possible CHF, low albumin related. Continue to observe closely. Patient noted to be mildly bradycardic at night. Agree with holding beta filiberto. Will check an EKG in the morning. Patient was felt to be slightly volume overloaded by hospitalist. Agree with intermittent IV Lasix as patient does have some edema. We'll check a BNP level in the morning. Patient noted to be hypokalemic. Recommend potassium supplementation. - Time Time with patient: Greater than 35 minutes - CODE STATUS was discussed, patient remains full code. Surrogate decision-maker unchanged. Multiple medical problems were addressed.More than 50% of the time spent coordinating care, discussing management plans with involved caregivers. Management plans discussed with involved personnels. Medical decision making was of moderate to high complexity, patient's has multiple severe comorbidities.
--- NOTE | 2016-12-27 12:19 | PDOC PROGRESS REPORT ---
Subjective Progress Note for:: 12/27/16 Subjective:: The patient was seen earlier today on rounds. The patient remains intubated. The patient is currently on Sharan-Synephrine. Map is in a good range however urine output wean when sharan is reduced. It appears the patient was volume up 1726 in the last 24 hours. Patient is putting out a significant volume from biliary drain. Review of the chest x-ray this morning does show evidence of mild pulmonary edema. The patient is currently on SIMV/pressure support. The patient is able to be aroused on 50 mics propofol. CVPs was reported to be 12- 14. The patient did have good output yesterday with albumin. Physical Exam Vital Signs: Temp Pulse Resp BP Pulse Ox 99.3 F 51 L 18 118/61 97 12/27/16 08:00 12/27/16 10:00 12/27/16 10:00 12/27/16 10:10 12/27/16 10:15 Intake & Output 12/25/16 12/26/16 12/27/16 23:59 23:59 23:59 Intake Total 3219 5016 1824 Output Total 3567 3290 1990 Balance -348 1726 -166 Weight 76.5 kg 85.7 kg 87.1 kg General appearance: PRESENT: well-developed Head exam: PRESENT: atraumatic, normocephalic Eye exam: PRESENT: conjunctiva pink, periorbital swelling, PERRLA. ABSENT: scleral icterus Mouth exam: PRESENT: other - ET tube in place Neck exam: PRESENT: JVD - The level of the clavicle. ABSENT: tracheal deviation , tracheostomy Respiratory exam: PRESENT: decreased breath sounds - Right lung base, symmetrical - Mechanical Cardiovascular exam: PRESENT: RRR, +S1, +S2. ABSENT: tachycardia Pulses: PRESENT: +1 pedal pulses bilateral, other - Extremities are warm to the touch Vascular exam: PRESENT: normal capillary refill GI/Abdominal exam: PRESENT: diminished bowel sounds, distended, firm, other - Both Postoperative drains output as noted Rectal exam: PRESENT: deferred Gentrourinary exam: PRESENT: indwelling catheter - [place] urine Extremities exam: PRESENT: +1 edema - Bilateral upper extremities. ABSENT: clubbing, pedal edema Musculoskeletal exam: PRESENT: normal inspection Neurological exam: PRESENT: other - Intubated and sedated Skin exam: PRESENT: dry, intact, normal color. ABSENT: cyanosis, erythema, jaundice, mottled, pallor, petechiae Results Laboratory Results: 12/27/16 05:20 12/27/16 05:20 12/26/16 12/26/16 12/27/16 12:15 14:10 05:20 WBC 12.0 H RBC 3.43 L Hgb 10.0 L Hct 29.5 L MCV 86 MCH 29.1 MCHC 33.8 RDW 13.8 Plt Count 290 Seg Neutrophils % 83.3 H Lymphocytes % 7.1 L Monocytes % 6.8 Eosinophils % 2.5 Basophils % 0.3 Absolute Neutrophils 10.0 H Absolute Lymphocytes 0.8 Absolute Monocytes 0.8 Absolute Eosinophils 0.3 Absolute Basophils 0.0 Carbonic Acid 1.19 HCO3/H2CO3 Ratio 19:1 ABG pH 7.38 ABG pCO2 39.4 ABG pO2 66.4 L ABG HCO3 22.9 ABG O2 Saturation 92.9 L ABG Base Excess -2.0 FiO2 40% Sodium 145.0 Potassium 3.3 L Chloride 111 H Carbon Dioxide 23 Anion Gap 11 BUN 8 Creatinine 0.77 Est GFR ( Amer) > 60 Est GFR (Non-Af Amer) > 60 Glucose 90 Lactic Acid Calcium 8.1 L Magnesium Total Bilirubin AST ALT Alkaline Phosphatase Total Protein Albumin Triglycerides 12/27/16 12/27/16 12/27/16 05:20 05:20 05:20 WBC RBC Hgb Hct MCV MCH MCHC RDW Plt Count Seg Neutrophils % Lymphocytes % Monocytes % Eosinophils % Basophils % Absolute Neutrophils Absolute Lymphocytes Absolute Monocytes Absolute Eosinophils Absolute Basophils Carbonic Acid 1.13 HCO3/H2CO3 Ratio 18:1 ABG pH 7.37 ABG pCO2 37.6 ABG pO2 73.8 L ABG HCO3 21.2 ABG O2 Saturation 94.5 ABG Base Excess -3.7 FiO2 35% Sodium 144.5 Potassium 3.0 L* Chloride 111 H Carbon Dioxide 23 Anion Gap 11 BUN 7 Creatinine 0.69 Est GFR ( Amer) > 60 Est GFR (Non-Af Amer) > 60 Glucose 117 H Lactic Acid 0.7 Calcium 7.9 L Magnesium 2.0 Total Bilirubin 0.4 AST 18 ALT 32 Alkaline Phosphatase 65 Total Protein 4.2 L Albumin 2.2 L Triglycerides 124 12/25/16 14:49 Troponin I < 0.012 Impressions: Acute Abdomen Series 12/22/16 19:25 IMPRESSION: NO RADIOGRAPHIC EVIDENCE FOR ACUTE ABDOMINAL DISEASE.Nonobstructive pattern. Lung Scan-VQ NM 12/23/16 00:00 IMPRESSION: NORMAL VENTILATION-PERFUSION LUNG SCAN. NEGATIVE FOR PULMONARY EMBOLI. Abdomen/Pelvis CT 12/23/16 14:35 IMPRESSION: 1. Increasing free fluid within the abdomen surrounding the liver , in the lesser sac and in the pelvis. There is no air to suggest abscess. 2. Right lower lobe pneumonia. Hepatobiliary Scan Nuclear Medicine 12/24/16 00:00 IMPRESSION: Contained bile leak in the surgical bed. KUB X-Ray 12/25/16 10:38 IMPRESSION: Post bile leak repair. Right subphrenic and right gallbladder fossa surgical drains are in place. Nonobstructive bowel gas pattern. Nasogastric tube, Hill catheter in good positioning Chest X-Ray 12/27/16 06:00 IMPRESSION: 1. Support tubes and lines as above. 2. Bibasilar hazy opacities likely representing combination of atelectasis/ infiltrate with associated effusions similar in the right lung base and slightly progressed in the left lung base. There is mild pulmonary vascular congestion centrally. Assessment & Plan - Diagnosis (1) Status post cholecystectomy Is this a current diagnosis for this admission?: YesPlan: The patient was noted to have a bile leak is status post operative repair with drain. Management as per surgery. Significant output noted from drain (2) Pneumonia Qualifiers: Laterality: right Lung location: lower lobe of lung Is this a current diagnosis for this admission?: YesPlan: Will continue expanded antibiotic coverage. Do appreciate pulmonology's input with this. (3) Septic shock Is this a current diagnosis for this admission?: YesPlan: Secondary to the above. Will continue broad-spectrum antibiotic coverage. Cultures been negative. Will repeat CBC in the a.m. lactic acid normal. (4) Coronary artery disease Qualifiers: Coronary Disease-Associated Artery/Lesion type: [place] artery [place] vs. transplanted heart: [place] heart Associated angina: without angina Qualified Code(s): I25.10 - Atherosclerotic heart disease of [place] coronary artery without angina pectoris Is this a current diagnosis for this admission?: YesPlan: The patient's EF is in the low-normal range. Appreciate cardiology input. (5) Hypertension Qualifiers: Hypertension type: essential hypertension Qualified Code(s): I10 - Essential (primary) hypertension Is this a current diagnosis for this admission?: YesPlan: Hold home blood pressure medications for now (6) Tobacco dependency Is this a current diagnosis for this admission?: YesPlan: continue PRN nicotine patch. (7) Hypokalemia Is this a current diagnosis for this admission?: YesPlan: Will replete this and repeat labs this afternoon. - Time Critical Time spent with patient: 35 or more minutes Medications reviewed and adjusted accordingly: Yes
--- NOTE | 2016-12-27 14:12 | PDOC PROGRESS REPORT ---
Subjective Progress Note for:: 12/27/16 Subjective:: on vent Physical Exam Vital Signs: Temp Pulse Resp BP Pulse Ox 99.3 F 63 21 H 123/72 98 12/27/16 12:00 12/27/16 12:00 12/27/16 12:00 12/27/16 12:00 12/27/16 12:00 Intake & Output 12/26/16 12/27/16 12/28/16 06:59 06:59 06:59 Intake Total 6366 3664 40 Output Total 4635 4033 1701 Balance 1728 449 -1665 Weight 85.7 kg 87.1 kg GI/Abdominal exam: PRESENT: other - soft abdomen KELLIE drains - biliary leak Results Laboratory Results: 12/27/16 05:20 12/27/16 05:20 12/26/16 12/27/16 12/27/16 14:10 05:20 05:20 WBC 12.0 H RBC 3.43 L Hgb 10.0 L Hct 29.5 L MCV 86 MCH 29.1 MCHC 33.8 RDW 13.8 Plt Count 290 Seg Neutrophils % 83.3 H Lymphocytes % 7.1 L Monocytes % 6.8 Eosinophils % 2.5 Basophils % 0.3 Absolute Neutrophils 10.0 H Absolute Lymphocytes 0.8 Absolute Monocytes 0.8 Absolute Eosinophils 0.3 Absolute Basophils 0.0 Carbonic Acid HCO3/H2CO3 Ratio ABG pH ABG pCO2 ABG pO2 ABG HCO3 ABG O2 Saturation ABG Base Excess FiO2 Sodium 145.0 144.5 Potassium 3.3 L 3.0 L* Chloride 111 H 111 H Carbon Dioxide 23 23 Anion Gap 11 11 BUN 8 7 Creatinine 0.77 0.69 Est GFR ( Amer) > 60 > 60 Est GFR (Non-Af Amer) > 60 > 60 Glucose 90 117 H Lactic Acid Calcium 8.1 L 7.9 L Magnesium 2.0 Total Bilirubin 0.4 AST 18 ALT 32 Alkaline Phosphatase 65 Total Protein 4.2 L Albumin 2.2 L Triglycerides 124 12/27/16 12/27/16 05:20 05:20 WBC RBC Hgb Hct MCV MCH MCHC RDW Plt Count Seg Neutrophils % Lymphocytes % Monocytes % Eosinophils % Basophils % Absolute Neutrophils Absolute Lymphocytes Absolute Monocytes Absolute Eosinophils Absolute Basophils Carbonic Acid 1.13 HCO3/H2CO3 Ratio 18:1 ABG pH 7.37 ABG pCO2 37.6 ABG pO2 73.8 L ABG HCO3 21.2 ABG O2 Saturation 94.5 ABG Base Excess -3.7 FiO2 35% Sodium Potassium Chloride Carbon Dioxide Anion Gap BUN Creatinine Est GFR ( Amer) Est GFR (Non-Af Amer) Glucose Lactic Acid 0.7 Calcium Magnesium Total Bilirubin AST ALT Alkaline Phosphatase Total Protein Albumin Triglycerides 12/25/16 14:49 Troponin I < 0.012 Impressions: Acute Abdomen Series 12/22/16 19:25 IMPRESSION: NO RADIOGRAPHIC EVIDENCE FOR ACUTE ABDOMINAL DISEASE.Nonobstructive pattern. Lung Scan-VQ NM 12/23/16 00:00 IMPRESSION: NORMAL VENTILATION-PERFUSION LUNG SCAN. NEGATIVE FOR PULMONARY EMBOLI. Abdomen/Pelvis CT 12/23/16 14:35 IMPRESSION: 1. Increasing free fluid within the abdomen surrounding the liver , in the lesser sac and in the pelvis. There is no air to suggest abscess. 2. Right lower lobe pneumonia. Hepatobiliary Scan Nuclear Medicine 12/24/16 00:00 IMPRESSION: Contained bile leak in the surgical bed. KUB X-Ray 12/25/16 10:38 IMPRESSION: Post bile leak repair. Right subphrenic and right gallbladder fossa surgical drains are in place. Nonobstructive bowel gas pattern. Nasogastric tube, Hill catheter in good positioning Chest X-Ray 12/27/16 06:00 IMPRESSION: 1. Support tubes and lines as above. 2. Bibasilar hazy opacities likely representing combination of atelectasis/ infiltrate with associated effusions similar in the right lung base and slightly progressed in the left lung base. There is mild pulmonary vascular congestion centrally. Assessment & Plan - Plan Summary Plan Summary: Bile leak still has significant amount up to 1000ml per day - Consult GI for possible ERCP and Biliary stent to facilitate healing
[2016-12-27 14:52] LABS: ANION GAP 10 (5-19); BLOOD UREA NITROGEN 6 mg/dL (7-20); CALCIUM 8.2 mg/dL (8.4-10.2); CARBON DIOXIDE 27 mmol/L (22-30); CHLORIDE 110 mmol/L (98-107); GLUCOSE 97 mg/dL (75-110); POTASSIUM 3.6 mmol/L (3.6-5.0); SODIUM 146.5 mmol/L (137-145)
[2016-12-27] MEDS: ATORVASTATIN CALCIUM 40 MG TABLET NG SCH (21:54)
[2016-12-28] MEDS: HYDROMORPHONE HCL INJ/PF 2 MG/ML AMPULE IV PRN ×3 (01:08→23:06)
[2016-12-28] MEDS: PROPOFOL 100 ML IV PRN ×7 (01:34→22:47)
[2016-12-28] MEDS: PIPERACILLIN SODIUM/TAZOBACTAM 4.5 GM in NORMAL SALINE 100 ML IV SCH ×4 (02:23→21:05)
[2016-12-28] MEDS: IPRATROPIUM/ALBUTEROL 0.5-2.5 MG/3 ML AMPUL NEB SCH ×4 (02:35→19:53)
[2016-12-28] MEDS: VANCOMYCIN HCL 1,250 MG in DEXTROSE 5%-WATER 250 ML IV SCH ×2 (04:23→16:24)
[2016-12-28 05:55] LABS: ABSOLUTE BASOPHILS # (AUTO) 0.1 10^3/uL (0.0-0.2); ABSOLUTE EOSINOPHILS # (AUTO) 0.4 10^3/uL (0.0-0.6); ABSOLUTE MONOCYTES (AUTO) 0.7 10^3/uL (0.1-1.4); ABSOLUTE NEUT (AUTO) 7.3 10^3/uL (1.7-8.2); BASOPHILS % (AUTO) 0.5 % (0-2); EOSINOPHILS % (AUTO) 4.3 % (0-6); LYMPHOCYTES % (AUTO) 10.7 % (13-45); MEAN CORPUSCULAR HEMOGLOBIN 29.3 pg (27.0-33.4); MEAN CORPUSCULAR HGB CONC 34.4 g/dL (32.0-36.0); MEAN CORPUSCULAR VOLUME 85 fl (80-97); MONOCYTES % (AUTO) 7.3 % (3-13); RED BLOOD COUNT 3.41 10^6/uL (3.72-5.28); RED CELL DISTRIBUTION WIDTH 13.9 % (11.5-14.0); SEGMENTED NEUTROPHILS % (AUTO) 77.2 % (42-78); WHITE BLOOD COUNT 9.5 10^3/uL (4.0-10.5)
[2016-12-28 06:13] LABS: ALANINE AMINOTRANSFERASE 32 U/L (9-52); ALBUMIN 2.2 g/dL (3.5-5.0); ALKALINE PHOSPHATASE 64 U/L (38-126); ANION GAP 7 (5-19); ASPARTATE AMINO TRANSFERASE 25 U/L (14-36); BILIRUBIN,DIRECT 0.3 mg/dL (0.0-0.4); BILIRUBIN,TOTAL 0.5 mg/dL (0.2-1.3); BLOOD UREA NITROGEN 7 mg/dL (7-20); CALCIUM 7.8 mg/dL (8.4-10.2); CARBON DIOXIDE 28 mmol/L (22-30); CHLORIDE 110 mmol/L (98-107); CREATININE RESULT 0.66 mg/dL (0.52-1.25); GLUCOSE 116 mg/dL (75-110); POTASSIUM 3.4 mmol/L (3.6-5.0); SODIUM 145.1 mmol/L (137-145); TOTAL PROTEIN 4.3 g/dL (6.3-8.2)
[2016-12-28 06:16] LABS: ARTERIAL BLOOD BASE EXCESS 1.6 mmol/L
[2016-12-28] MEDS: FLUTICASONE NASAL SPRAY 50 MCG/SPRY 120 SPRAY/16 GM NASL SCH ×2 (09:23→21:06)
[2016-12-28] MEDS: ASPIRIN 81 MG TABLET, CHEWABLE NG SCH (09:23)
--- NOTE | 2016-12-28 09:50 | PDOC PROGRESS REPORT ---
Subjective Progress Note for:: 12/28/16 Subjective:: Intubated, sedated, down to low-dose Sharan-Synephrine. Physical Exam Vital Signs: Temp Pulse Resp BP Pulse Ox 99.2 F 56 L 18 135/98 H 99 12/28/16 06:00 12/28/16 08:15 12/28/16 08:15 12/28/16 05:57 12/28/16 08:25 Intake & Output 12/27/16 12/28/16 12/29/16 06:59 06:59 06:59 Intake Total 3664 3814 Output Total 3215 4370 Balance 449 -556 Weight 87.1 kg 85.7 kg General appearance: PRESENT: no acute distress GI/Abdominal exam: PRESENT: other - Drains still putting out 1 greater than 2, bilious. Results Laboratory Results: 12/28/16 05:30 12/28/16 05:30 12/27/16 12/28/16 12/28/16 14:25 05:30 05:30 WBC 9.5 RBC 3.41 L Hgb 10.0 L Hct 29.0 L MCV 85 MCH 29.3 MCHC 34.4 RDW 13.9 Plt Count 312 Seg Neutrophils % 77.2 Lymphocytes % 10.7 L Monocytes % 7.3 Eosinophils % 4.3 Basophils % 0.5 Absolute Neutrophils 7.3 Absolute Lymphocytes 1.0 Absolute Monocytes 0.7 Absolute Eosinophils 0.4 Absolute Basophils 0.1 Carbonic Acid HCO3/H2CO3 Ratio ABG pH ABG pCO2 ABG pO2 ABG HCO3 ABG O2 Saturation ABG Base Excess FiO2 Sodium 146.5 H 145.1 H Potassium 3.6 3.4 L Chloride 110 H 110 H Carbon Dioxide 27 28 Anion Gap 10 7 BUN 6 L 7 Creatinine 0.70 0.66 Est GFR ( Amer) > 60 > 60 Est GFR (Non-Af Amer) > 60 > 60 Glucose 97 116 H Calcium 8.2 L 7.8 L Magnesium 2.0 Total Bilirubin 0.5 AST 25 ALT 32 Alkaline Phosphatase 64 Total Protein 4.3 L Albumin 2.2 L 12/28/16 05:45 WBC RBC Hgb Hct MCV MCH MCHC RDW Plt Count Seg Neutrophils % Lymphocytes % Monocytes % Eosinophils % Basophils % Absolute Neutrophils Absolute Lymphocytes Absolute Monocytes Absolute Eosinophils Absolute Basophils Carbonic Acid 1.21 HCO3/H2CO3 Ratio 21:1 ABG pH 7.43 ABG pCO2 40.2 ABG pO2 89.4 ABG HCO3 26.0 ABG O2 Saturation 97.0 ABG Base Excess 1.6 FiO2 35% Sodium Potassium Chloride Carbon Dioxide Anion Gap BUN Creatinine Est GFR ( Amer) Est GFR (Non-Af Amer) Glucose Calcium Magnesium Total Bilirubin AST ALT Alkaline Phosphatase Total Protein Albumin 12/25/16 14:49 Troponin I < 0.012 Impressions: Acute Abdomen Series 12/22/16 19:25 IMPRESSION: NO RADIOGRAPHIC EVIDENCE FOR ACUTE ABDOMINAL DISEASE.Nonobstructive pattern. Lung Scan-VQ NM 12/23/16 00:00 IMPRESSION: NORMAL VENTILATION-PERFUSION LUNG SCAN. NEGATIVE FOR PULMONARY EMBOLI. Abdomen/Pelvis CT 12/23/16 14:35 IMPRESSION: 1. Increasing free fluid within the abdomen surrounding the liver , in the lesser sac and in the pelvis. There is no air to suggest abscess. 2. Right lower lobe pneumonia. Hepatobiliary Scan Nuclear Medicine 12/24/16 00:00 IMPRESSION: Contained bile leak in the surgical bed. KUB X-Ray 12/25/16 10:38 IMPRESSION: Post bile leak repair. Right subphrenic and right gallbladder fossa surgical drains are in place. Nonobstructive bowel gas pattern. Nasogastric tube, Hill catheter in good positioning Chest X-Ray 12/28/16 06:00 IMPRESSION: Stable appearance of the chest compared to 12/27/2016, 12/26/2016 Assessment & Plan - Diagnosis (1) Postoperative bile leak Is this a current diagnosis for this admission?: YesPlan: Status post laparoscopy, biliary washer-out. Drains functioned satisfactorily. Sepsis appears to be controlled. Ideally patient should undergo ERCP, sphincterotomy decompressed biliary tree. We'll discuss with gastroenterology regarding timing
[2016-12-28] MEDS ORDERED: POTASSI CL 20 MEQ/50 ML RIDER 20 MEQ/50 ML RTUPB IV ONE (13:40)
--- NOTE | 2016-12-28 13:41 | PDOC PROGRESS REPORT ---
Subjective Progress Note for:: 12/28/16 Subjective:: The patient was seen earlier today on rounds. The patient remains intubated. The patient is almost off Sharan-Synephrine. Map is in a good range however urine output has waned when sharan is reduced. Biliary drain has lessened. Review of the chest x-ray this morning does show evidence of improvement. The patient is currently on CPAP/pressure support. The patient is able to be aroused on 50 mics propofol. CVPs was reported to be 12-14. The patient did diurese well with Lasix. Discussed the case with surgicalist. The next step is ERCP. Surgicalist discussed the case with Dr. Rodriguez. Physical Exam Vital Signs: Temp Pulse Resp BP Pulse Ox 98.7 F 56 L 18 122/75 98 12/28/16 08:00 12/28/16 10:00 12/28/16 08:15 12/28/16 11:41 12/28/16 11:41 Intake & Output 12/26/16 12/27/16 12/28/16 23:59 23:59 23:59 Intake Total 5016 3701 1897 Output Total 3290 4560 995 Balance 1726 -859 902 Weight 85.7 kg 87.1 kg 85.7 kg General appearance: PRESENT: well-developed Head exam: PRESENT: atraumatic, normocephalic Eye exam: PRESENT: conjunctiva pink, periorbital swelling, PERRLA. ABSENT: scleral icterus Mouth exam: PRESENT: other - ET tube in place Neck exam: PRESENT: JVD - The level of the clavicle. ABSENT: tracheal deviation , tracheostomy Respiratory exam: PRESENT: decreased breath sounds - Right lung base, symmetrical - Mechanical Cardiovascular exam: PRESENT: RRR, +S1, +S2. ABSENT: tachycardia Pulses: PRESENT: +1 pedal pulses bilateral, other - Extremities are warm to the touch Vascular exam: PRESENT: normal capillary refill GI/Abdominal exam: PRESENT: diminished bowel sounds, distended, firm, other - Both Postoperative drains output as noted Rectal exam: PRESENT: deferred Gentrourinary exam: PRESENT: indwelling catheter - [place] urine Extremities exam: PRESENT: +1 edema - Bilateral upper extremities. ABSENT: clubbing, pedal edema Musculoskeletal exam: PRESENT: normal inspection Neurological exam: PRESENT: other - Intubated and sedated Skin exam: PRESENT: dry, intact, normal color. ABSENT: cyanosis, erythema, jaundice, mottled, pallor, petechiae Results Laboratory Results: 12/28/16 05:30 12/28/16 05:30 12/27/16 12/28/16 12/28/16 14:25 05:30 05:30 WBC 9.5 RBC 3.41 L Hgb 10.0 L Hct 29.0 L MCV 85 MCH 29.3 MCHC 34.4 RDW 13.9 Plt Count 312 Seg Neutrophils % 77.2 Lymphocytes % 10.7 L Monocytes % 7.3 Eosinophils % 4.3 Basophils % 0.5 Absolute Neutrophils 7.3 Absolute Lymphocytes 1.0 Absolute Monocytes 0.7 Absolute Eosinophils 0.4 Absolute Basophils 0.1 Carbonic Acid HCO3/H2CO3 Ratio ABG pH ABG pCO2 ABG pO2 ABG HCO3 ABG O2 Saturation ABG Base Excess FiO2 Sodium 146.5 H 145.1 H Potassium 3.6 3.4 L Chloride 110 H 110 H Carbon Dioxide 27 28 Anion Gap 10 7 BUN 6 L 7 Creatinine 0.70 0.66 Est GFR ( Amer) > 60 > 60 Est GFR (Non-Af Amer) > 60 > 60 Glucose 97 116 H Calcium 8.2 L 7.8 L Magnesium 2.0 Total Bilirubin 0.5 AST 25 ALT 32 Alkaline Phosphatase 64 Total Protein 4.3 L Albumin 2.2 L 12/28/16 05:45 WBC RBC Hgb Hct MCV MCH MCHC RDW Plt Count Seg Neutrophils % Lymphocytes % Monocytes % Eosinophils % Basophils % Absolute Neutrophils Absolute Lymphocytes Absolute Monocytes Absolute Eosinophils Absolute Basophils Carbonic Acid 1.21 HCO3/H2CO3 Ratio 21:1 ABG pH 7.43 ABG pCO2 40.2 ABG pO2 89.4 ABG HCO3 26.0 ABG O2 Saturation 97.0 ABG Base Excess 1.6 FiO2 35% Sodium Potassium Chloride Carbon Dioxide Anion Gap BUN Creatinine Est GFR ( Amer) Est GFR (Non-Af Amer) Glucose Calcium Magnesium Total Bilirubin AST ALT Alkaline Phosphatase Total Protein Albumin 12/25/16 14:49 Troponin I < 0.012 Impressions: Acute Abdomen Series 12/22/16 19:25 IMPRESSION: NO RADIOGRAPHIC EVIDENCE FOR ACUTE ABDOMINAL DISEASE.Nonobstructive pattern. Lung Scan-VQ NM 12/23/16 00:00 IMPRESSION: NORMAL VENTILATION-PERFUSION LUNG SCAN. NEGATIVE FOR PULMONARY EMBOLI. Abdomen/Pelvis CT 12/23/16 14:35 IMPRESSION: 1. Increasing free fluid within the abdomen surrounding the liver , in the lesser sac and in the pelvis. There is no air to suggest abscess. 2. Right lower lobe pneumonia. Hepatobiliary Scan Nuclear Medicine 12/24/16 00:00 IMPRESSION: Contained bile leak in the surgical bed. KUB X-Ray 12/25/16 10:38 IMPRESSION: Post bile leak repair. Right subphrenic and right gallbladder fossa surgical drains are in place. Nonobstructive bowel gas pattern. Nasogastric tube, Hill catheter in good positioning Chest X-Ray 12/28/16 06:00 IMPRESSION: Stable appearance of the chest compared to 12/27/2016, 12/26/2016 Assessment & Plan - Diagnosis (1) Status post cholecystectomy Is this a current diagnosis for this admission?: YesPlan: The patient was noted to have a bile leak is status post operative repair with drain. Management as per surgery. (2) Pneumonia Qualifiers: Laterality: right Lung location: lower lobe of lung Is this a current diagnosis for this admission?: YesPlan: The patient is improving. Cultures been not available. If patient continues to improve will de-escalate antibiotics. Will defer extubation until ERCP is complete. (3) Septic shock Is this a current diagnosis for this admission?: YesPlan: Secondary to the above. Will continue broad-spectrum antibiotic coverage. Cultures been negative. Will repeat CBC in the a.m. lactic acid normal. (4) Coronary artery disease Qualifiers: Coronary Disease-Associated Artery/Lesion type: [place] artery [place] vs. transplanted heart: [place] heart Associated angina: without angina Qualified Code(s): I25.10 - Atherosclerotic heart disease of [place] coronary artery without angina pectoris Is this a current diagnosis for this admission?: YesPlan: The patient's EF is in the low-normal range. Appreciate cardiology input. (5) Hypertension Qualifiers: Hypertension type: essential hypertension Qualified Code(s): I10 - Essential (primary) hypertension Is this a current diagnosis for this admission?: YesPlan: Hold home blood pressure medications for now (6) Hypokalemia Is this a current diagnosis for this admission?: YesPlan: Will replete and follow (7) Tobacco dependency Is this a current diagnosis for this admission?: YesPlan: continue PRN nicotine patch. - Time Critical Time spent with patient: 25-34 minutes Medications reviewed and adjusted accordingly: Yes
[2016-12-28] MEDS: POTASSI CL 20 MEQ/1/2NS 1L 20 MEQ/1,000 ML RTUINJ IV PRN (13:54)
[2016-12-28] MEDS: ATORVASTATIN CALCIUM 40 MG TABLET NG SCH (21:05)
[2016-12-29] MEDS: PROPOFOL 100 ML IV PRN ×7 (02:05→23:39)
[2016-12-29] MEDS: PIPERACILLIN SODIUM/TAZOBACTAM 4.5 GM in NORMAL SALINE 100 ML IV SCH ×4 (02:05→20:18)
[2016-12-29] MEDS: POTASSI CL 20 MEQ/1/2NS 1L 20 MEQ/1,000 ML RTUINJ IV PRN ×2 (02:05→15:09)
[2016-12-29] MEDS: IPRATROPIUM/ALBUTEROL 0.5-2.5 MG/3 ML AMPUL NEB SCH ×4 (02:09→20:56)
[2016-12-29] MEDS: VANCOMYCIN HCL 1,250 MG in DEXTROSE 5%-WATER 250 ML IV SCH ×2 (03:22→15:55)
[2016-12-29 05:06] LABS: ARTERIAL BLOOD O2 SATURATION 95.5 % (94-98)
[2016-12-29 05:07] LABS: ABSOLUTE EOSINOPHILS # (AUTO) 0.4 10^3/uL (0.0-0.6); ABSOLUTE LYMPHOCYTES (AUTO) 0.9 10^3/uL (0.5-4.7); ABSOLUTE MONOCYTES (AUTO) 0.6 10^3/uL (0.1-1.4); ABSOLUTE NEUT (AUTO) 5.6 10^3/uL (1.7-8.2); BASOPHILS % (AUTO) 0.5 % (0-2); EOSINOPHILS % (AUTO) 4.9 % (0-6); HEMATOCRIT 29.6 % (36.0-47.0); HEMOGLOBIN 9.9 g/dL (12.0-15.5); HGB HCT DIFFERENCE 0.1; LYMPHOCYTES % (AUTO) 11.5 % (13-45); MEAN CORPUSCULAR HEMOGLOBIN 28.4 pg (27.0-33.4); MEAN CORPUSCULAR HGB CONC 33.3 g/dL (32.0-36.0); MEAN CORPUSCULAR VOLUME 85 fl (80-97); MONOCYTES % (AUTO) 8.6 % (3-13); RED BLOOD COUNT 3.47 10^6/uL (3.72-5.28); RED CELL DISTRIBUTION WIDTH 13.7 % (11.5-14.0); SEGMENTED NEUTROPHILS % (AUTO) 74.5 % (42-78); WHITE BLOOD COUNT 7.5 10^3/uL (4.0-10.5)
[2016-12-29 05:34] LABS: ALANINE AMINOTRANSFERASE 43 U/L (9-52); ALBUMIN 2.2 g/dL (3.5-5.0); ALKALINE PHOSPHATASE 68 U/L (38-126); ANION GAP 8 (5-19); ASPARTATE AMINO TRANSFERASE 71 U/L (14-36); BILIRUBIN,DIRECT 0.2 mg/dL (0.0-0.4); BILIRUBIN,TOTAL 0.3 mg/dL (0.2-1.3); BLOOD UREA NITROGEN 9 mg/dL (7-20); CALCIUM 7.7 mg/dL (8.4-10.2); CARBON DIOXIDE 26 mmol/L (22-30); CHLORIDE 110 mmol/L (98-107); CREATININE RESULT 0.64 mg/dL (0.52-1.25); GLUCOSE 113 mg/dL (75-110); MAGNESIUM 2.1 mg/dL (1.6-2.3); POTASSIUM 3.7 mmol/L (3.6-5.0); SODIUM 144.2 mmol/L (137-145); TOTAL PROTEIN 4.2 g/dL (6.3-8.2)
[2016-12-29 05:39] LABS: PROTHROMBIN TIME 13.3 SEC (11.4-15.4)
[2016-12-29] MEDS ORDERED: SUCCINYLCHOLINE CHLORIDE INJ 200 MG/10 ML VIAL ONE (07:42)
[2016-12-29] MEDS ORDERED: ONDANSETRON HCL INJ/PF 4 MG/2 ML SDV ONE (07:42)
[2016-12-29] MEDS ORDERED: LIDOCAINE 2% INJ-PF (20 MG/ML) 10 ML AMPUL ONE (07:42)
--- NOTE | 2016-12-29 09:00 | PDOC PROGRESS REPORT ---
Subjective Progress Note for:: 12/28/16 Subjective:: Patient general status is somewhat improved. She remains intubated and but on less sedation. She is however on less vasopressor support than before. Patient 's mental status and responsiveness is noted to be improved. Chest x-ray reviewed showed right basal effusion and possible underlying infiltrate. The finding is either stable or improved. Lab works were reviewed.. White cell count is coming down, renal functions normal, liver functions just minimally abnormal. Physical Exam Vital Signs: Temp Pulse Resp BP Pulse Ox 98.9 F 73 22 H 106/67 97 12/28/16 16:00 12/28/16 13:39 12/28/16 13:39 12/28/16 18:27 12/28/16 18:27 Intake & Output 12/27/16 12/28/16 12/29/16 06:59 06:59 06:59 Intake Total 3664 3814 1612 Output Total 3215 4370 1000 Balance 449 -556 612 Weight 87.1 kg 85.7 kg Exam: GENERAL: well-nourished and in no acute distress. Patient is intubated and sedated. Orientation cannot be checked. Patient does respond to verbal stimuli. HEAD: Atraumatic, normocephalic. EYES: Pupils equal round and reactive to light, extraocular movements could not be checked, sclera anicteric, conjunctiva are normal. ENT: TMs normal, nares patent, oropharynx clear without exudates. Moist mucous membranes. No oral ulcerations or bleeding gums noted NECK: supple without lymphadenopathy or JVD. Trachea is central. No cervical or axillary lymphadenopathy noted. Carotids are 2+ LUNGS: Breath sounds mostly clear to auscultation patient is noted to have bibasal crackles at the extreme bases. Right basal dullness is noted. CHEST: Palpation of the chest wall shows no significant chest wall tenderness or abnormalities. 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 ABDOMEN: Soft, no significant tenderness appreciated, normoactive bowel sounds. No guarding, no rebound. No rigidity noted . No masses appreciated. EXTREMITIES: Pedal pulses are 1-2+, no calf tenderness noted, 1+ pedal edema noted. No clubbing or cyanosis. NEUROLOGICAL: The patient cannot participate in the neurological exam but no facial asymmetry noted. Extremities slightly hypotonic PSYCH: This cannot be evaluated. Patient cannot participate. SKIN: No significant ecchymosis, rash, or signs of pruritus noted. MUSCULOSKELETAL EXAM: No significant joint swelling noted. Patient cannot participate in musculoskeletal exam Results Laboratory Results: 12/28/16 05:30 12/28/16 05:30 12/28/16 12/28/16 12/28/16 05:30 05:30 05:45 WBC 9.5 RBC 3.41 L Hgb 10.0 L Hct 29.0 L MCV 85 MCH 29.3 MCHC 34.4 RDW 13.9 Plt Count 312 Seg Neutrophils % 77.2 Lymphocytes % 10.7 L Monocytes % 7.3 Eosinophils % 4.3 Basophils % 0.5 Absolute Neutrophils 7.3 Absolute Lymphocytes 1.0 Absolute Monocytes 0.7 Absolute Eosinophils 0.4 Absolute Basophils 0.1 Carbonic Acid 1.21 HCO3/H2CO3 Ratio 21:1 ABG pH 7.43 ABG pCO2 40.2 ABG pO2 89.4 ABG HCO3 26.0 ABG O2 Saturation 97.0 ABG Base Excess 1.6 FiO2 35% Sodium 145.1 H Potassium 3.4 L Chloride 110 H Carbon Dioxide 28 Anion Gap 7 BUN 7 Creatinine 0.66 Est GFR ( Amer) > 60 Est GFR (Non-Af Amer) > 60 Glucose 116 H Calcium 7.8 L Magnesium 2.0 Total Bilirubin 0.5 AST 25 ALT 32 Alkaline Phosphatase 64 Total Protein 4.3 L Albumin 2.2 L 12/25/16 14:49 Troponin I < 0.012 Impressions: Acute Abdomen Series 12/22/16 19:25 IMPRESSION: NO RADIOGRAPHIC EVIDENCE FOR ACUTE ABDOMINAL DISEASE.Nonobstructive pattern. Lung Scan-VQ NM 12/23/16 00:00 IMPRESSION: NORMAL VENTILATION-PERFUSION LUNG SCAN. NEGATIVE FOR PULMONARY EMBOLI. Abdomen/Pelvis CT 12/23/16 14:35 IMPRESSION: 1. Increasing free fluid within the abdomen surrounding the liver , in the lesser sac and in the pelvis. There is no air to suggest abscess. 2. Right lower lobe pneumonia. Hepatobiliary Scan Nuclear Medicine 12/24/16 00:00 IMPRESSION: Contained bile leak in the surgical bed. KUB X-Ray 12/25/16 10:38 IMPRESSION: Post bile leak repair. Right subphrenic and right gallbladder fossa surgical drains are in place. Nonobstructive bowel gas pattern. Nasogastric tube, Hill catheter in good positioning Chest X-Ray 12/28/16 06:00 IMPRESSION: Stable appearance of the chest compared to 12/27/2016, 12/26/2016 Assessment & Plan - Diagnosis (2) Hypotension (arterial) Qualifiers: Hypotension type: unspecified hypotension type Qualified Code(s): I95.9 - Hypotension, unspecified Is this a current diagnosis for this admission?: Yes (3) Coronary artery disease Qualifiers: Coronary Disease-Associated Artery/Lesion type: [place] artery [place] vs. transplanted heart: [place] heart Associated angina: without angina Qualified Code(s): I25.10 - Atherosclerotic heart disease of [place] coronary artery without angina pectoris Is this a current diagnosis for this admission?: Yes (4) Hypertension Qualifiers: Hypertension type: essential hypertension Qualified Code(s): I10 - Essential (primary) hypertension Is this a current diagnosis for this admission?: Yes (5) Pneumonia Qualifiers: Laterality: right Lung location: lower lobe of lung Is this a current diagnosis for this admission?: Yes (6) Postoperative bile leak Is this a current diagnosis for this admission?: Yes (7) Septic shock Is this a current diagnosis for this admission?: Yes (8) Status post cholecystectomy Is this a current diagnosis for this admission?: Yes - Notes Notes: Patient seems generally improving. She is needing less and less pressure support. Overall showing gradual improvement. As regards coronary artery disease, patient is symptomatically stable. Septic shock also improving. Patient does have right pleural effusion which seems stable to improving. Pneumonia also seems improving. At this point will continue ventilatory support , gradually withdrawn pressure support. Agree with IV Lasix as this is being tolerated. Will continue to follow patient. Will consider repeating an EKG to look for any changes. - Time Time with patient: 15-25 minutes - CODE STATUS was discussed, patient remains full code. Surrogate decision-maker unchanged. Multiple medical problems were addressed.More than 50% of the time spent coordinating care, discussing management plans with involved caregivers. Management plans discussed with involved personnels. Medical decision making was of moderate to high complexity , patient's has multiple severe comorbidities. Medications reviewed and adjusted accordingly: Yes
--- NOTE | 2016-12-29 09:05 | PDOC PROGRESS REPORT ---
Subjective Progress Note for:: 12/29/16 Subjective:: Patient general status is improved. She remains intubated and but on less sedation. Patient is now off vasopressor support. Sharan-Synephrine is on standby. Patient's mental status and responsiveness is noted to be improving. Chest x-ray reviewed showed right basal infiltrate and possible pleural effusion. The finding is felt to be improved by my review.. Lab works were reviewed.. White cell count is coming down, renal functions normal, liver functions just minimally abnormal. Physical Exam Vital Signs: Temp Pulse Resp BP Pulse Ox 99.9 F 73 20 102/67 96 12/29/16 08:00 12/29/16 08:03 12/29/16 08:03 12/29/16 08:00 12/29/16 08:03 Intake & Output 12/28/16 12/29/16 12/30/16 06:59 06:59 06:59 Intake Total 3814 3186 Output Total 4370 1810 60 Balance -556 1376 -60 Weight 85.7 kg 86.1 kg Exam: GENERAL: well-nourished and in no acute distress. Patient is intubated and sedated. Patient responding to verbal stimuli. HEAD: Atraumatic, normocephalic. EYES: Pupils equal round and reactive to light, extraocular movements could not be checked, sclera anicteric, conjunctiva are normal. ENT: TMs normal, nares patent, oropharynx clear without exudates. Moist mucous membranes. No oral ulcerations or bleeding gums noted NECK: supple without lymphadenopathy or JVD. Trachea is central. No cervical or axillary lymphadenopathy noted. Carotids are 2+ LUNGS: Breath sounds mostly clear to auscultation patient is noted to have bibasal crackles at the extreme bases, right more than left CHEST: Palpation of the chest wall shows no significant chest wall tenderness or abnormalities. 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 ABDOMEN: Soft, no significant tenderness appreciated, normoactive bowel sounds. No guarding, no rebound. No rigidity noted . No masses appreciated. Patient is status post laparoscopic washout and drainage EXTREMITIES: Pedal pulses are 1-2+, no calf tenderness noted, 1+ pedal edema noted. No clubbing or cyanosis. NEUROLOGICAL: The patient cannot participate in the neurological exam but no facial asymmetry noted. Extremities slightly hypotonic PSYCH: This cannot be evaluated. Patient cannot participate. SKIN: No significant ecchymosis, rash, or signs of pruritus noted. MUSCULOSKELETAL EXAM: No significant joint swelling noted. Patient cannot participate in musculoskeletal exam Results Laboratory Results: 12/29/16 04:55 12/29/16 04:55 12/29/16 12/29/16 12/29/16 04:55 04:55 04:55 WBC 7.5 RBC 3.47 L Hgb 9.9 L Hct 29.6 L MCV 85 MCH 28.4 MCHC 33.3 RDW 13.7 Plt Count 318 Seg Neutrophils % 74.5 Lymphocytes % 11.5 L Monocytes % 8.6 Eosinophils % 4.9 Basophils % 0.5 Absolute Neutrophils 5.6 Absolute Lymphocytes 0.9 Absolute Monocytes 0.6 Absolute Eosinophils 0.4 Absolute Basophils 0.0 Carbonic Acid 1.18 HCO3/H2CO3 Ratio 21:1 ABG pH 7.43 ABG pCO2 39.2 ABG pO2 75.3 L ABG HCO3 25.4 ABG O2 Saturation 95.5 ABG Base Excess 1.0 FiO2 35% Sodium 144.2 Potassium 3.7 Chloride 110 H Carbon Dioxide 26 Anion Gap 8 BUN 9 Creatinine 0.64 Est GFR ( Amer) > 60 Est GFR (Non-Af Amer) > 60 Glucose 113 H Calcium 7.7 L Magnesium 2.1 Total Bilirubin 0.3 AST 71 H ALT 43 Alkaline Phosphatase 68 Total Protein 4.2 L Albumin 2.2 L 12/25/16 14:49 Troponin I < 0.012 Impressions: Acute Abdomen Series 12/22/16 19:25 IMPRESSION: NO RADIOGRAPHIC EVIDENCE FOR ACUTE ABDOMINAL DISEASE.Nonobstructive pattern. Lung Scan-VQ NM 12/23/16 00:00 IMPRESSION: NORMAL VENTILATION-PERFUSION LUNG SCAN. NEGATIVE FOR PULMONARY EMBOLI. Abdomen/Pelvis CT 12/23/16 14:35 IMPRESSION: 1. Increasing free fluid within the abdomen surrounding the liver , in the lesser sac and in the pelvis. There is no air to suggest abscess. 2. Right lower lobe pneumonia. Hepatobiliary Scan Nuclear Medicine 12/24/16 00:00 IMPRESSION: Contained bile leak in the surgical bed. KUB X-Ray 12/25/16 10:38 IMPRESSION: Post bile leak repair. Right subphrenic and right gallbladder fossa surgical drains are in place. Nonobstructive bowel gas pattern. Nasogastric tube, Hill catheter in good positioning Chest X-Ray 12/29/16 06:00 IMPRESSION: Stable appearance. Endotracheal tube tip is above the kelly. Assessment & Plan - Diagnosis (2) Hypotension (arterial) Qualifiers: Hypotension type: unspecified hypotension type Qualified Code(s): I95.9 - Hypotension, unspecified Is this a current diagnosis for this admission?: Yes (3) Coronary artery disease Qualifiers: Coronary Disease-Associated Artery/Lesion type: [place] artery [place] vs. transplanted heart: [place] heart Associated angina: without angina Qualified Code(s): I25.10 - Atherosclerotic heart disease of [place] coronary artery without angina pectoris Is this a current diagnosis for this admission?: Yes (4) Hypertension Qualifiers: Hypertension type: essential hypertension Qualified Code(s): I10 - Essential (primary) hypertension Is this a current diagnosis for this admission?: Yes (5) Pneumonia Qualifiers: Laterality: right Lung location: lower lobe of lung Is this a current diagnosis for this admission?: Yes (6) Postoperative bile leak Is this a current diagnosis for this admission?: Yes (7) Septic shock Is this a current diagnosis for this admission?: Yes (8) Status post cholecystectomy Is this a current diagnosis for this admission?: Yes - Notes Notes: Patient maintaining slow gradual improvement. Patient has been afebrile. Patient now off vasopressor support. Pneumonia by chest x-ray is improving. Pleural effusion seems improved. As regards biliary leak, surgeons are following. Director Of First Impressions may consider ERCP. Cardiac-cook Patient seems stable. Will continue to follow as patient has a potential to deteriorate. Currently antihypertensive agents as rightly on hold as patient blood pressure is stable on the low side but over 90 mmHg. Will repeat an EKG today. Will also order and BNP today. - Time Time with patient: 15-25 minutes - CODE STATUS was discussed, patient remains full code. Surrogate decision-maker unchanged. Multiple medical problems were addressed.More than 50% of the time spent coordinating care, discussing management plans with involved caregivers. Management plans discussed with involved personnels. Medical decision making was of moderate to high complexity , patient's has multiple severe comorbidities. Medications reviewed and adjusted accordingly: Yes
--- NOTE | 2016-12-29 09:13 | PROGRESS NOTE E ---
Progress Note NAME: DIANE SALINAS : 1955 AGE: 61Y DATE: 12/29/2016 ROOM: 602 SUBJECTIVE: She is still in the ICU intubated. Her white count now is normal at 7.5, it was 9.5 yesterday and hemoglobin also at 9.9. She is afebrile. KELLIE drains appears to be decreasing in amount. She is supposed to have an ERCP and possible placement of a stent by Dr. Rodriguez this afternoon. Meantime, continue her on IV antibiotics. DICTATING PHYSICIAN: MAGY PATEL M.D. [id number] PHY#: [id number] ID: [id number] JOB#: [id number] ACCT: [id number] cc: >
[2016-12-29] MEDS: ASPIRIN 81 MG TABLET, CHEWABLE NG SCH (09:37)
[2016-12-29] MEDS: FLUTICASONE NASAL SPRAY 50 MCG/SPRY 120 SPRAY/16 GM NASL SCH ×2 (09:44→21:19)
--- NOTE | 2016-12-29 11:19 | EKG REPORT ---
SEVERITY:- BORDERLINE ECG - SINUS RHYTHM VENTRICULAR PREMATURE COMPLEX BORDERLINE T WAVE ABNORMALITIES : Confirmed by: Gonzales Anglin 29-Dec-2016 11:18:41
--- NOTE | 2016-12-29 17:26 | PDOC CONSULTATION ---
Consultation Consult Date: 12/28/16 History of Present Illness Admission Date/PCP: 12/24/16 16:00 ADIEL HARDIN History of Present Illness: This is a 61-year-old patient was admitted on 12/24/2016 with abdominal pain. She had a cholecystectomy five days prior to being admitted. On admission her white count was elevated and a CAT scan showed evidence of fluid accumulation in the gallbladder bed area he had a scan was consistent with a bile leak. She had a exploratory laparoscopy with peritoneal lavage on 12/25/2016 that confirmed the leak. She remains on the ventilator in the ICU. Consultation was requested for ERCP Past Medical History Cardiac Medical History: Reports: Myocardial Infarction - CARDIAC STENT x1, Hypertension Denies: Coronary Artery Disease Pulmonary Medical History: Denies: Asthma, Bronchitis, Chronic Obstructive Pulmonary Disease (COPD), Pneumonia Neurological Medical History: Denies: Seizures GI Medical History: Denies: Hepatitis, Hiatal Hernia Musculoskeltal Medical History: Denies: Arthritis Hematology: Denies: Anemia, Sickle Cell Disease Past Surgical History Past Surgical History: Reports: Cholecystectomy, Hysterectomy Denies: Amputation, Mastectomy, Pacemaker Social History Lives with: Family Smoking Status: Current Some Day Smoker Cigarettes Packs Per Day: 2 Number of Years Smokin Last Time Smoked: 12/21/16 Frequency of Alcohol Use: Occasional Hx Recreational Drug Use: No Hx Prescription Drug Abuse: No - Advance Directive Resuscitation Status: Full Code Family History Family History: Reviewed & Not Pertinent Parental Family History Reviewed: No Children Family History Reviewed: NA Sibling(s) Family History Reviewed.: NA Medication/Allergy Home Medications: Amlodipine Besylate [Norvasc 2.5 mg Tablet] 2.5 mg PO DAILY 12/23/16 Aspirin [Aspirin 81 mg Chewable Tablet] 81 mg PO DAILY 12/23/16 Atorvastatin Calcium [Lipitor 40 mg Tablet] 40 mg PO QHS 12/23/16 Clopidogrel Bisulfate [Plavix 75 mg Tablet] 75 mg PO DAILY 12/23/16 Enalapril Maleate [Vasotec 20 mg Tablet] 20 mg PO DAILY 12/23/16 Metoprolol Tartrate [Lopressor 25 mg Tablet] 12.5 mg PO Q12 12/23/16 Allergies/Adverse Reactions: No Known Allergies Allergy (Verified 12/14/16 08:04) Review of Systems ROS unobtainable: Due to endotracheal tube Physical Exam Vital Signs: Temp Pulse Resp BP Pulse Ox 100.8 F H 70 21 H 110/67 96 12/29/16 15:52 12/29/16 16:00 12/29/16 15:52 12/29/16 16:00 12/29/16 15:52 Intake & Output 12/28/16 12/29/16 12/30/16 06:59 06:59 06:59 Intake Total 3814 3186 Output Total 4370 1810 560 Balance -556 1376 -560 Weight 85.7 kg 86.1 kg Exam: General: Patient on the ventilator HEENT: There is no pallor or jaundice. PERRLA. Oropharynx normal Respiratory: No chest deformity. No respiratory distress. Chest wall palpitation was unremarkable. Breath sounds were normal Cardiovascular: Heart sounds 1 and 2 normal with no murmurs. Abdominal: Not distended. She has two drains in the right upper quadrant. No masses felt Extremities: No edema Neurological: Not examined. Skin: No significant rash Psychological: Normal affect Results Laboratory Results: 12/29/16 04:55 12/29/16 04:55 12/29/16 12/29/16 12/29/16 04:55 04:55 04:55 WBC 7.5 RBC 3.47 L Hgb 9.9 L Hct 29.6 L MCV 85 MCH 28.4 MCHC 33.3 RDW 13.7 Plt Count 318 Seg Neutrophils % 74.5 Lymphocytes % 11.5 L Monocytes % 8.6 Eosinophils % 4.9 Basophils % 0.5 Absolute Neutrophils 5.6 Absolute Lymphocytes 0.9 Absolute Monocytes 0.6 Absolute Eosinophils 0.4 Absolute Basophils 0.0 Carbonic Acid 1.18 HCO3/H2CO3 Ratio 21:1 ABG pH 7.43 ABG pCO2 39.2 ABG pO2 75.3 L ABG HCO3 25.4 ABG O2 Saturation 95.5 ABG Base Excess 1.0 FiO2 35% Sodium 144.2 Potassium 3.7 Chloride 110 H Carbon Dioxide 26 Anion Gap 8 BUN 9 Creatinine 0.64 Est GFR ( Amer) > 60 Est GFR (Non-Af Amer) > 60 Glucose 113 H Calcium 7.7 L Magnesium 2.1 Total Bilirubin 0.3 AST 71 H ALT 43 Alkaline Phosphatase 68 Total Protein 4.2 L Albumin 2.2 L 12/25/16 14:49 Troponin I < 0.012 Impressions: Acute Abdomen Series 12/22/16 19:25 IMPRESSION: NO RADIOGRAPHIC EVIDENCE FOR ACUTE ABDOMINAL DISEASE.Nonobstructive pattern. Lung Scan-VQ NM 12/23/16 00:00 IMPRESSION: NORMAL VENTILATION-PERFUSION LUNG SCAN. NEGATIVE FOR PULMONARY EMBOLI. Abdomen/Pelvis CT 12/23/16 14:35 IMPRESSION: 1. Increasing free fluid within the abdomen surrounding the liver , in the lesser sac and in the pelvis. There is no air to suggest abscess. 2. Right lower lobe pneumonia. Hepatobiliary Scan Nuclear Medicine 12/24/16 00:00 IMPRESSION: Contained bile leak in the surgical bed. KUB X-Ray 12/25/16 10:38 IMPRESSION: Post bile leak repair. Right subphrenic and right gallbladder fossa surgical drains are in place. Nonobstructive bowel gas pattern. Nasogastric tube, Hill catheter in good positioning Chest X-Ray 12/29/16 06:00 IMPRESSION: Stable appearance. Endotracheal tube tip is above the kelly. Assessment & Plan - Diagnosis (1) Biliary anastomotic leak Is this a current diagnosis for this admission?: YesPlan: She apparently has a biliary leak from the cystic duct stump. The need for an ERCP and stent placement was explained to the patient's daughter and she is in agreement. She will remain on the ventilator until after the ERCP (2) Abdominal pain Is this a current diagnosis for this admission?: Yes
[2016-12-29] MEDS ORDERED: FENTANYL CITRATE INJ/PF 100 MCG/2 ML AMPUL ONE (17:44)
[2016-12-29] MEDS ORDERED: MIDAZOLAM 2 MG/2 ML INJ ONE (17:45)
[2016-12-29] MEDS ORDERED: PROPOFOL INJ 200 MG/20 ML VIAL IV ONE (17:45)
--- NOTE | 2016-12-29 17:48 | PDOC PROGRESS REPORT ---
Subjective Progress Note for:: 12/29/16 Subjective:: The patient was seen earlier today on rounds. The patient remains intubated. The patient has been weaned from both pressors and his mapping greater than 75. Urine output is decent.. Biliary drain has lessened significantly. Review of the chest x-ray this morning does show evidence of improvement. The patient is currently on CPAP/pressure support. The patient is able to be aroused on 50 mics propofol. CVPs was reported to be 8-12. The patient did diurese well with Lasix. Discussed the case with surgicalist. The next step is ERCP. Surgicalist discussed the case with Dr. Rodriguez. Brief history: Patient is a 61-year-old female that presented to the emergency department with right upper quadrant pain. The patient was status post outpatient laparoscopic cholecystectomy a week prior to this. Patient was admitted and was found to have a bile leak. The patient returned to the OR with Dr. Harding and was placed in ICU. The patient is Intubated given her septic state and right lower lobe infiltrate. Patient was covered for HCAP Pneumonia and has made significant improvement. The patient is a longer and septic shock. The patient is to undergo ERCP with Dr. Rodriguez. Plan is to extubate in the a.m. if the patient tolerates ERCP well. Physical Exam Vital Signs: Temp Pulse Resp BP Pulse Ox 100.8 F H 68 21 H 112/70 96 12/29/16 15:52 12/29/16 15:52 12/29/16 15:52 12/29/16 15:52 12/29/16 15:52 Intake & Output 12/27/16 12/28/16 12/29/16 23:59 23:59 23:59 Intake Total 3701 3509 1574 Output Total 4560 1935 1230 Balance -859 1574 344 Weight 87.1 kg 85.7 kg 86.1 kg General appearance: PRESENT: well-developed Head exam: PRESENT: atraumatic, normocephalic Eye exam: PRESENT: conjunctiva pink, periorbital swelling, PERRLA. ABSENT: scleral icterus Mouth exam: PRESENT: other - ET tube in place Neck exam: PRESENT: JVD -not seen. ABSENT: tracheal deviation, tracheostomy Respiratory exam: PRESENT: decreased breath sounds - Right lung base, symmetrical - Mechanical Cardiovascular exam: PRESENT: RRR, +S1, +S2. ABSENT: tachycardia Pulses: PRESENT: +1 pedal pulses bilateral, other - Extremities are warm to the touch Vascular exam: PRESENT: normal capillary refill GI/Abdominal exam: PRESENT: diminished bowel sounds, distended, firm, other - Both Postoperative drains output as noted Rectal exam: PRESENT: deferred Gentrourinary exam: PRESENT: indwelling catheter - [place] urine Extremities exam: PRESENT: +1 edema - Bilateral upper extremities. ABSENT: clubbing, pedal edema Musculoskeletal exam: PRESENT: normal inspection Neurological exam: PRESENT: other - Intubated and sedated Skin exam: PRESENT: dry, intact, normal color. ABSENT: cyanosis, erythema, jaundice, mottled, pallor, petechiae Results Laboratory Results: 12/29/16 04:55 12/29/16 04:55 12/29/16 12/29/16 12/29/16 04:55 04:55 04:55 WBC 7.5 RBC 3.47 L Hgb 9.9 L Hct 29.6 L MCV 85 MCH 28.4 MCHC 33.3 RDW 13.7 Plt Count 318 Seg Neutrophils % 74.5 Lymphocytes % 11.5 L Monocytes % 8.6 Eosinophils % 4.9 Basophils % 0.5 Absolute Neutrophils 5.6 Absolute Lymphocytes 0.9 Absolute Monocytes 0.6 Absolute Eosinophils 0.4 Absolute Basophils 0.0 Carbonic Acid 1.18 HCO3/H2CO3 Ratio 21:1 ABG pH 7.43 ABG pCO2 39.2 ABG pO2 75.3 L ABG HCO3 25.4 ABG O2 Saturation 95.5 ABG Base Excess 1.0 FiO2 35% Sodium 144.2 Potassium 3.7 Chloride 110 H Carbon Dioxide 26 Anion Gap 8 BUN 9 Creatinine 0.64 Est GFR ( Amer) > 60 Est GFR (Non-Af Amer) > 60 Glucose 113 H Calcium 7.7 L Magnesium 2.1 Total Bilirubin 0.3 AST 71 H ALT 43 Alkaline Phosphatase 68 Total Protein 4.2 L Albumin 2.2 L 12/25/16 14:49 Troponin I < 0.012 Impressions: Acute Abdomen Series 12/22/16 19:25 IMPRESSION: NO RADIOGRAPHIC EVIDENCE FOR ACUTE ABDOMINAL DISEASE.Nonobstructive pattern. Lung Scan-VQ NM 12/23/16 00:00 IMPRESSION: NORMAL VENTILATION-PERFUSION LUNG SCAN. NEGATIVE FOR PULMONARY EMBOLI. Abdomen/Pelvis CT 12/23/16 14:35 IMPRESSION: 1. Increasing free fluid within the abdomen surrounding the liver , in the lesser sac and in the pelvis. There is no air to suggest abscess. 2. Right lower lobe pneumonia. Hepatobiliary Scan Nuclear Medicine 12/24/16 00:00 IMPRESSION: Contained bile leak in the surgical bed. KUB X-Ray 12/25/16 10:38 IMPRESSION: Post bile leak repair. Right subphrenic and right gallbladder fossa surgical drains are in place. Nonobstructive bowel gas pattern. Nasogastric tube, Hill catheter in good positioning Chest X-Ray 12/29/16 06:00 IMPRESSION: Stable appearance. Endotracheal tube tip is above the kelly. Assessment & Plan - Diagnosis (1) Status post cholecystectomy Is this a current diagnosis for this admission?: YesPlan: The patient was noted to have a bile leak is status post operative repair with drain. Management as per surgery. Significant output noted from drain has improved. The patient is to undergo ERCP with Dr. Michael ortiz in the OR. (2) Pneumonia Qualifiers: Laterality: right Lung location: lower lobe of lung Is this a current diagnosis for this admission?: YesPlan: Will continue expanded antibiotic coverage until ERCP is complete. Do appreciate pulmonology's input with this. (3) Septic shock Is this a current diagnosis for this admission?: YesPlan: Secondary to the above. Cultures been negative. Will repeat CBC in the a.m. lactic acid normalized. The patient is now off pressors. Will de-escalate antibiotics after procedure. (4) Coronary artery disease Qualifiers: Coronary Disease-Associated Artery/Lesion type: [place] artery [place] vs. transplanted heart: [place] heart Associated angina: without angina Qualified Code(s): I25.10 - Atherosclerotic heart disease of [place] coronary artery without angina pectoris Is this a current diagnosis for this admission?: YesPlan: The patient's EF is in the low-normal range. Appreciate cardiology input. (5) Hypertension Qualifiers: Hypertension type: essential hypertension Qualified Code(s): I10 - Essential (primary) hypertension Is this a current diagnosis for this admission?: YesPlan: Hold home blood pressure medications for now (6) Tobacco dependency Is this a current diagnosis for this admission?: YesPlan: continue PRN nicotine patch. (7) Hypokalemia Is this a current diagnosis for this admission?: YesPlan: Localized after repletion - Time Critical Time spent with patient: 35 or more minutes Medications reviewed and adjusted accordingly: Yes Anticipated discharge: Home Within: within 48 hours
[2016-12-29] MEDS: HYDROMORPHONE HCL INJ/PF 2 MG/ML AMPULE IV PRN (19:42)
[2016-12-29] MEDS: ATORVASTATIN CALCIUM 40 MG TABLET NG SCH (21:19)
[2016-12-30] MEDS: IPRATROPIUM/ALBUTEROL 0.5-2.5 MG/3 ML AMPUL NEB SCH ×4 (01:49→20:27)
[2016-12-30] MEDS: PIPERACILLIN SODIUM/TAZOBACTAM 4.5 GM in NORMAL SALINE 100 ML IV SCH ×4 (02:21→20:03)
[2016-12-30] MEDS: HYDROMORPHONE HCL INJ/PF 2 MG/ML AMPULE IV PRN ×3 (02:40→20:59)
[2016-12-30] MEDS: PROPOFOL 100 ML IV PRN ×6 (02:40→23:18)
[2016-12-30] MEDS: VANCOMYCIN HCL 1,250 MG in DEXTROSE 5%-WATER 250 ML IV SCH ×2 (04:30→16:03)
[2016-12-30 04:47] LABS: ABSOLUTE EOSINOPHILS # (AUTO) 0.3 10^3/uL (0.0-0.6); ABSOLUTE LYMPHOCYTES (AUTO) 0.8 10^3/uL (0.5-4.7); ABSOLUTE MONOCYTES (AUTO) 0.6 10^3/uL (0.1-1.4); ABSOLUTE NEUT (AUTO) 5.3 10^3/uL (1.7-8.2); BASOPHILS % (AUTO) 0.4 % (0-2); EOSINOPHILS % (AUTO) 4.9 % (0-6); HEMATOCRIT 27.3 % (36.0-47.0); HEMOGLOBIN 9.4 g/dL (12.0-15.5); HGB HCT DIFFERENCE 0.9; LYMPHOCYTES % (AUTO) 10.8 % (13-45); MEAN CORPUSCULAR HEMOGLOBIN 29.1 pg (27.0-33.4); MEAN CORPUSCULAR HGB CONC 34.4 g/dL (32.0-36.0); MEAN CORPUSCULAR VOLUME 85 fl (80-97); MONOCYTES % (AUTO) 8.3 % (3-13); RED BLOOD COUNT 3.22 10^6/uL (3.72-5.28); RED CELL DISTRIBUTION WIDTH 13.9 % (11.5-14.0); SEGMENTED NEUTROPHILS % (AUTO) 75.6 % (42-78)
[2016-12-30 04:54] LABS: ARTERIAL BLOOD BASE EXCESS 1.2 mmol/L; ARTERIAL BLOOD O2 SATURATION 97.4 % (94-98)
[2016-12-30 05:03] LABS: ALANINE AMINOTRANSFERASE 75 U/L (9-52); ALKALINE PHOSPHATASE 67 U/L (38-126); ANION GAP 8 (5-19); ASPARTATE AMINO TRANSFERASE 135 U/L (14-36); BILIRUBIN,DIRECT 0.4 mg/dL (0.0-0.4); BILIRUBIN,TOTAL 0.5 mg/dL (0.2-1.3); BLOOD UREA NITROGEN 10 mg/dL (7-20); CALCIUM 7.8 mg/dL (8.4-10.2); CARBON DIOXIDE 29 mmol/L (22-30); CHLORIDE 107 mmol/L (98-107); GLUCOSE 89 mg/dL (75-110); MAGNESIUM 2.1 mg/dL (1.6-2.3); POTASSIUM 3.7 mmol/L (3.6-5.0); SODIUM 143.5 mmol/L (137-145); TOTAL PROTEIN 4.2 g/dL (6.3-8.2); TRIGLYCERIDES 297 mg/dL (<150)
[2016-12-30] MEDS: POTASSI CL 20 MEQ/1/2NS 1L 20 MEQ/1,000 ML RTUINJ IV PRN ×2 (06:44→23:19)
--- NOTE | 2016-12-30 08:11 | OPERATIVE REPORT E ---
Operative Report NAME: DIANE SALINAS : 1955 AGE: 61Y DATE OF SURGERY: 12/29/2016 ROOM: 602 PREOPERATIVE DIAGNOSIS: Biliary leakage. POSTOPERATIVE DIAGNOSIS: Leak from the cystic duct stump. OPERATION: Endoscopic retrograde cholangiopancreatography with sphincterotomy, balloon sludge extraction, and biliary stent placement. SURGEON: PINA GUTIERRES M.D. MEDICATION: As per Anesthesia. TISSUE REMOVED OR ALTERED: None. PROCEDURE: After informed consent obtained from patient's family, she remained under general anesthesia and on the ventilator. The ERCP endoscope was then inserted into the esophagus down into the duodenum. Using a triple-lumen sphincterotomy catheter, the common bile duct was freely cannulated. The pancreatic duct was initially cannulated and this was normal. A cholangiogram was obtained, and it showed significant leak into the gallbladder bed. The patient also has biliary drains in place, and there was contrast going into the drains. No definite filling defect was identified in the common bile duct. A good-sized sphincterotomy was performed using the ENDO-CUT mode. The catheter was then replaced with a 12 mm balloon catheter. This was inflated in the proximal duct and pulled down the duct. Small amount of sludge was extracted. In the sterile fashion a 5 cm 10 [place] stent was then placed in the distal common bile duct without any difficulty. The endoscope was then pulled out of the patient. She tolerated the procedure well. PLAN: We will remove the stent in 3 to 6 weeks after her leak has closed. DICTATING PHYSICIAN: PINA GUTIERRES M.D. [id number] Y#: [id number] ID: [id number] JOB#: [id number] ACCT: [id number] cc:PINA GUTIERRES M.D. >
[2016-12-30] MEDS ORDERED: FUROSEMIDE INJ/PF 20 MG/2 ML SDV IV ONE (08:43)
--- NOTE | 2016-12-30 08:47 | PDOC PROGRESS REPORT ---
Subjective Progress Note for:: 12/28/16 Physical Exam Vital Signs: Temp Pulse Resp BP Pulse Ox 98.4 F 76 18 92/63 L 97 12/30/16 05:00 12/30/16 01:50 12/30/16 07:00 12/30/16 06:34 12/30/16 07:00 Intake & Output 12/29/16 12/30/16 12/31/16 06:59 06:59 06:59 Intake Total 3186 3112 Output Total 1810 1715 Balance 1376 1397 Weight 86.1 kg 88.4 kg Results Laboratory Results: 12/30/16 04:40 12/30/16 04:40 12/30/16 12/30/16 12/30/16 04:40 04:40 04:40 WBC 7.0 RBC 3.22 L Hgb 9.4 L Hct 27.3 L MCV 85 MCH 29.1 MCHC 34.4 RDW 13.9 Plt Count 304 Seg Neutrophils % 75.6 Lymphocytes % 10.8 L Monocytes % 8.3 Eosinophils % 4.9 Basophils % 0.4 Absolute Neutrophils 5.3 Absolute Lymphocytes 0.8 Absolute Monocytes 0.6 Absolute Eosinophils 0.3 Absolute Basophils 0.0 Carbonic Acid 1.10 HCO3/H2CO3 Ratio 22:1 ABG pH 7.46 H ABG pCO2 36.5 ABG pO2 92.0 ABG HCO3 25.1 ABG O2 Saturation 97.4 ABG Base Excess 1.2 FiO2 40% Sodium 143.5 Potassium 3.7 Chloride 107 Carbon Dioxide 29 Anion Gap 8 BUN 10 Creatinine 0.60 Est GFR ( Amer) > 60 Est GFR (Non-Af Amer) > 60 Glucose 89 Calcium 7.8 L Magnesium 2.1 Total Bilirubin 0.5 AST 135 H ALT 75 H Alkaline Phosphatase 67 Total Protein 4.2 L Albumin 2.0 L Triglycerides 297 H 12/25/16 14:49 Troponin I < 0.012 Impressions: Acute Abdomen Series 12/22/16 19:25 IMPRESSION: NO RADIOGRAPHIC EVIDENCE FOR ACUTE ABDOMINAL DISEASE.Nonobstructive pattern. Lung Scan-VQ NM 12/23/16 00:00 IMPRESSION: NORMAL VENTILATION-PERFUSION LUNG SCAN. NEGATIVE FOR PULMONARY EMBOLI. Abdomen/Pelvis CT 12/23/16 14:35 IMPRESSION: 1. Increasing free fluid within the abdomen surrounding the liver , in the lesser sac and in the pelvis. There is no air to suggest abscess. 2. Right lower lobe pneumonia. Hepatobiliary Scan Nuclear Medicine 12/24/16 00:00 IMPRESSION: Contained bile leak in the surgical bed. KUB X-Ray 12/25/16 10:38 IMPRESSION: Post bile leak repair. Right subphrenic and right gallbladder fossa surgical drains are in place. Nonobstructive bowel gas pattern. Nasogastric tube, Hill catheter in good positioning Endo Retro Cholangiopancreatogram 12/29/16 00:00 IMPRESSION: INTRA PROCEDURAL IMAGING ABOVE . Chest X-Ray 12/30/16 06:00 IMPRESSION: 1. Support tubes and lines as above. 2. Stable bibasilar hazy opacities, similar to prior study. SUPPORT DEVICE(S) IN EXPECTED LOCATIONS. Assessment & Plan - Diagnosis (1) Postoperative bile leak Is this a current diagnosis for this admission?: Yes (2) Tobacco dependency Is this a current diagnosis for this admission?: Yes (3) Pneumonia Qualifiers: Laterality: right Lung location: lower lobe of lung Is this a current diagnosis for this admission?: Yes
[2016-12-30] MEDS ORDERED: FUROSEMIDE INJ/PF 40 MG/4 ML SDV ONE (08:58)
[2016-12-30] MEDS: ASPIRIN 81 MG TABLET, CHEWABLE NG SCH (09:01)
[2016-12-30] MEDS: FLUTICASONE NASAL SPRAY 50 MCG/SPRY 120 SPRAY/16 GM NASL SCH ×2 (09:01→21:11)
--- NOTE | 2016-12-30 09:52 | PROGRESS NOTE E ---
Progress Note NAME: DIANE SALINAS : 1955 AGE: 61Y DATE: 12/30/2016 ROOM: 602 SUBJECTIVE: Patient is still intubated but for possible extubation today. She had an ERCP and placement of biliary stent yesterday. OBJECTIVE: Her temperature this morning is 99.6 orally. Her heart rate is 61 per minute. Blood pressure 102/68. Her KELLIE drain has less drainage this morning than yesterday and also looks yellowish clear. The abdomen remains soft and nontender. Her white count remains normal at 7000 and hemoglobin at 9.4. Her AST slightly went up from 71 to 135, ALT 43 to 75 plus alkaline phosphatase normal at 67. PLAN: The plan is for her to be extubated today and hopefully start her on p.o. diet. DICTATING PHYSICIAN: MAGY PATEL M.D. [id number] PHY#: [id number] ID: [id number] JOB#: [id number] ACCT: [id number] cc: >
--- NOTE | 2016-12-30 15:57 | PDOC PROGRESS REPORT ---
Subjective Progress Note for:: 12/30/16 Subjective:: Patient is seen on morning rounds. She remains intubated and sedated on ventilator. She underwent ERCP last evening by Dr. Clemons, for biliary stent due to significant bile leak. Patient underwent cholecystectomy 5 years ago and was found to have bile leak and exploratory lap. She has been weaned off vasopressors for the last 24 hours. The hopes will be to wean her propofol and attempt to wean her from the ventilator. She has been awake and following commands when propofol has been weaned. There is presently no family at the bedside. Physical Exam Vital Signs: Temp Pulse Resp BP Pulse Ox 100.7 F H 77 18 115/68 98 12/30/16 12:00 12/30/16 13:51 12/30/16 14:34 12/30/16 14:34 12/30/16 14:34 Intake & Output 12/29/16 12/30/16 12/31/16 06:59 06:59 06:59 Intake Total 3186 3112 Output Total 1810 1715 3075 Balance 1376 1397 -3075 Weight 86.1 kg 88.4 kg General appearance: PRESENT: no acute distress, obese, well-developed, well- nourished Head exam: PRESENT: atraumatic, normocephalic Eye exam: PRESENT: conjunctiva pink, EOMI, PERRLA. ABSENT: scleral icterus Ear exam: PRESENT: normal external ear exam Mouth exam: PRESENT: moist, tongue midline, other - oral endotracheal tube Neck exam: ABSENT: carotid bruit, JVD, lymphadenopathy, thyromegaly Respiratory exam: PRESENT: decreased breath sounds, symmetrical, unlabored. ABSENT: rales, rhonchi, wheezes Cardiovascular exam: PRESENT: RRR. ABSENT: diastolic murmur, rubs, systolic murmur Pulses: PRESENT: normal dorsalis pedis pul Vascular exam: PRESENT: normal capillary refill GI/Abdominal exam: PRESENT: hypoactive bowel sounds, soft. ABSENT: distended, guarding, mass, organolmegaly, rebound, tenderness Rectal exam: PRESENT: deferred Extremities exam: PRESENT: full ROM. ABSENT: calf tenderness, clubbing, pedal edema Neurological exam: PRESENT: alert, CN II-XII grossly intact, other - Sedated on propofol. ABSENT: motor sensory deficit Psychiatric exam: PRESENT: other - sedated on propofol. ABSENT: homicidal ideation, suicidal ideation Skin exam: PRESENT: dry, intact, warm. ABSENT: cyanosis, rash Results Laboratory Results: 12/30/16 04:40 12/30/16 04:40 12/30/16 12/30/16 12/30/16 04:40 04:40 04:40 WBC 7.0 RBC 3.22 L Hgb 9.4 L Hct 27.3 L MCV 85 MCH 29.1 MCHC 34.4 RDW 13.9 Plt Count 304 Seg Neutrophils % 75.6 Lymphocytes % 10.8 L Monocytes % 8.3 Eosinophils % 4.9 Basophils % 0.4 Absolute Neutrophils 5.3 Absolute Lymphocytes 0.8 Absolute Monocytes 0.6 Absolute Eosinophils 0.3 Absolute Basophils 0.0 Carbonic Acid 1.10 HCO3/H2CO3 Ratio 22:1 ABG pH 7.46 H ABG pCO2 36.5 ABG pO2 92.0 ABG HCO3 25.1 ABG O2 Saturation 97.4 ABG Base Excess 1.2 FiO2 40% Sodium 143.5 Potassium 3.7 Chloride 107 Carbon Dioxide 29 Anion Gap 8 BUN 10 Creatinine 0.60 Est GFR ( Amer) > 60 Est GFR (Non-Af Amer) > 60 Glucose 89 Calcium 7.8 L Magnesium 2.1 Total Bilirubin 0.5 AST 135 H ALT 75 H Alkaline Phosphatase 67 Total Protein 4.2 L Albumin 2.0 L Triglycerides 297 H 12/25/16 14:49 Troponin I < 0.012 Impressions: Acute Abdomen Series 12/22/16 19:25 IMPRESSION: NO RADIOGRAPHIC EVIDENCE FOR ACUTE ABDOMINAL DISEASE.Nonobstructive pattern. Lung Scan-VQ NM 12/23/16 00:00 IMPRESSION: NORMAL VENTILATION-PERFUSION LUNG SCAN. NEGATIVE FOR PULMONARY EMBOLI. Abdomen/Pelvis CT 12/23/16 14:35 IMPRESSION: 1. Increasing free fluid within the abdomen surrounding the liver , in the lesser sac and in the pelvis. There is no air to suggest abscess. 2. Right lower lobe pneumonia. Hepatobiliary Scan Nuclear Medicine 12/24/16 00:00 IMPRESSION: Contained bile leak in the surgical bed. KUB X-Ray 12/25/16 10:38 IMPRESSION: Post bile leak repair. Right subphrenic and right gallbladder fossa surgical drains are in place. Nonobstructive bowel gas pattern. Nasogastric tube, Hill catheter in good positioning Endo Retro Cholangiopancreatogram 12/29/16 00:00 IMPRESSION: INTRA PROCEDURAL IMAGING ABOVE . Chest X-Ray 12/30/16 06:00 IMPRESSION: 1. Support tubes and lines as above. 2. Stable bibasilar hazy opacities, similar to prior study. SUPPORT DEVICE(S) IN EXPECTED LOCATIONS. Assessment & Plan - Diagnosis (1) Biliary anastomotic leak Is this a current diagnosis for this admission?: YesPlan: Patient underwent ERCP with biliary stent placement last evening by Dr. Clemons (2) Postoperative bile leak Is this a current diagnosis for this admission?: YesPlan: Biliary stent placement. Patient had laparoscopic postoperative repair with drain with continued bile leak (3) Pneumonia Qualifiers: Laterality: right Lung location: lower lobe of lung Is this a current diagnosis for this admission?: YesPlan: We'll continue broad-spectrum IV antibiotic use patient is extubated (4) Hypotension (arterial) Qualifiers: Hypotension type: unspecified hypotension type Qualified Code(s): I95.9 - Hypotension, unspecified Is this a current diagnosis for this admission?: YesPlan: Secondary to sepsis which is now resolved. Patient did require 2 vasopressors which have now been weaned off (5) Septic shock Is this a current diagnosis for this admission?: YesPlan: Resolved with antibiotic, IV fluids, repair of bile leak (6) Coronary artery disease Qualifiers: Coronary Disease-Associated Artery/Lesion type: [place] artery [place] vs. transplanted heart: [place] heart Associated angina: without angina Qualified Code(s): I25.10 - Atherosclerotic heart disease of [place] coronary artery without angina pectoris Is this a current diagnosis for this admission?: YesPlan: Technique current medications (7) Diastolic CHF Qualifiers: Congestive heart failure chronicity: chronic Qualified Code(s): I50.32 - Chronic diastolic (congestive) heart failure Is this a current diagnosis for this admission?: YesPlan: Presently she appears euvolemic. Will continue current medications (8) Hypertension Qualifiers: Hypertension type: essential hypertension Qualified Code(s): I10 - Essential (primary) hypertension Is this a current diagnosis for this admission?: YesPlan: Presently normotensive off medications - Time Time Spent with patient: 25-34 minutes Critical Time spent with patient: 15-24 minutes Medications reviewed and adjusted accordingly: Yes
[2016-12-30] MEDS: ATORVASTATIN CALCIUM 40 MG TABLET NG SCH (21:10)
[2016-12-31] MEDS: PROPOFOL 100 ML IV PRN ×7 (01:31→22:26)
[2016-12-31] MEDS: PIPERACILLIN SODIUM/TAZOBACTAM 4.5 GM in NORMAL SALINE 100 ML IV SCH ×4 (02:17→20:59)
[2016-12-31] MEDS: IPRATROPIUM/ALBUTEROL 0.5-2.5 MG/3 ML AMPUL NEB SCH ×4 (02:17→19:44)
[2016-12-31] MEDS: VANCOMYCIN HCL 1,250 MG in DEXTROSE 5%-WATER 250 ML IV SCH ×2 (03:37→15:21)
[2016-12-31] MEDS: HYDROMORPHONE HCL INJ/PF 2 MG/ML AMPULE IV PRN ×2 (03:52→19:49)
--- NOTE | 2016-12-31 08:13 | PROGRESS NOTE E ---
Progress Note NAME: DIANE SALINAS : 1955 AGE: 61Y DATE: 12/31/2016 ROOM: 602 SUBJECTIVE: The patient is still intubated, but the plan is to extubate her this morning. OBJECTIVE: VITAL SIGNS: Revealed a low-grade temp of 100.1, pulse rate of 69 per minute. HEENT: The KELLIE drains have diminished markedly. ABDOMEN: Soft. It is slightly distended. LABORATORY DATA: Her liver functions are slightly increased post ERCP and stent placement yesterday with AST at 135 and ALT of 75. PLAN: Patient for possible extubation today. Continue with IV antibiotics. DICTATING PHYSICIAN: MAGY PATEL M.D. [id number] PHY#: [id number] ID: [id number] JOB#: [id number] ACCT: [id number] cc: >
[2016-12-31 08:25] LABS: ARTERIAL BLOOD BASE EXCESS 3.2 mmol/L; ARTERIAL BLOOD O2 SATURATION 95.2 % (94-98)
[2016-12-31] MEDS: ASPIRIN 81 MG TABLET, CHEWABLE NG SCH (09:15)
[2016-12-31] MEDS: FLUTICASONE NASAL SPRAY 50 MCG/SPRY 120 SPRAY/16 GM NASL SCH ×2 (09:16→22:26)
[2016-12-31] MEDS: MIDAZOLAM 2 MG/2 ML INJ IV PRN ×2 (11:22→15:21)
--- NOTE | 2016-12-31 11:47 | PDOC PROGRESS REPORT ---
Subjective Progress Note for:: 12/31/16 Subjective:: Patient is seen on morning rounds. She remains intubated and is lightly sedated on the ventilator. She became anxious and tachypneic during yesterday's vent weaning trials. She has been awake and following commands when propofol has been weaned. There is presently no family at the bedside. Physical Exam Vital Signs: Temp Pulse Resp BP Pulse Ox 98.8 F 83 16 120/74 96 12/31/16 11:28 12/31/16 11:28 12/31/16 11:28 12/31/16 11:28 12/31/16 07:59 Intake & Output 12/30/16 12/31/16 01/01/17 06:59 06:59 06:59 Intake Total 3112 2977 Output Total 1715 4780 350 Balance 1397 -1803 -350 Weight 88.4 kg 86.7 kg General appearance: PRESENT: no acute distress, obese, well-developed, well- nourished Head exam: PRESENT: atraumatic, normocephalic Eye exam: PRESENT: conjunctiva pink, EOMI, PERRLA. ABSENT: scleral icterus Neck exam: ABSENT: carotid bruit, JVD, lymphadenopathy, thyromegaly Respiratory exam: PRESENT: clear to auscultation [place]. ABSENT: rales, rhonchi, wheezes Cardiovascular exam: PRESENT: RRR. ABSENT: diastolic murmur, rubs, systolic murmur Pulses: PRESENT: normal dorsalis pedis pul Vascular exam: PRESENT: normal capillary refill GI/Abdominal exam: PRESENT: hypoactive bowel sounds, soft. ABSENT: distended, guarding, mass, organolmegaly, rebound, tenderness Rectal exam: PRESENT: deferred Extremities exam: PRESENT: full ROM. ABSENT: calf tenderness, clubbing, pedal edema Neurological exam: PRESENT: CN II-XII grossly intact, other - sedated on ventilator Psychiatric exam: PRESENT: other - sedated Focused psych exam: PRESENT: other - sedated Skin exam: PRESENT: dry, intact, warm. ABSENT: cyanosis, rash Results Laboratory Results: 12/30/16 04:40 12/30/16 04:40 12/31/16 08:00 Carbonic Acid 1.13 HCO3/H2CO3 Ratio 23:1 ABG pH 7.47 H ABG pCO2 37.7 ABG pO2 70.5 L ABG HCO3 26.9 H ABG O2 Saturation 95.2 ABG Base Excess 3.2 FiO2 40% 12/25/16 14:49 Troponin I < 0.012 Impressions: Acute Abdomen Series 12/22/16 19:25 IMPRESSION: NO RADIOGRAPHIC EVIDENCE FOR ACUTE ABDOMINAL DISEASE.Nonobstructive pattern. Lung Scan-VQ NM 12/23/16 00:00 IMPRESSION: NORMAL VENTILATION-PERFUSION LUNG SCAN. NEGATIVE FOR PULMONARY EMBOLI. Abdomen/Pelvis CT 12/23/16 14:35 IMPRESSION: 1. Increasing free fluid within the abdomen surrounding the liver , in the lesser sac and in the pelvis. There is no air to suggest abscess. 2. Right lower lobe pneumonia. Hepatobiliary Scan Nuclear Medicine 12/24/16 00:00 IMPRESSION: Contained bile leak in the surgical bed. KUB X-Ray 12/25/16 10:38 IMPRESSION: Post bile leak repair. Right subphrenic and right gallbladder fossa surgical drains are in place. Nonobstructive bowel gas pattern. Nasogastric tube, Hill catheter in good positioning Endo Retro Cholangiopancreatogram 12/29/16 00:00 IMPRESSION: INTRA PROCEDURAL IMAGING ABOVE . Chest X-Ray 12/30/16 06:00 IMPRESSION: 1. Support tubes and lines as above. 2. Stable bibasilar hazy opacities, similar to prior study. SUPPORT DEVICE(S) IN EXPECTED LOCATIONS. Assessment & Plan - Diagnosis (1) Biliary anastomotic leak Is this a current diagnosis for this admission?: YesPlan: Patient underwent ERCP with biliary stent placement after continued leak post laparoscopy (2) Postoperative bile leak Is this a current diagnosis for this admission?: YesPlan: Biliary stent placement. Patient had laparoscopic postoperative repair with drain with continued bile leak (3) Pneumonia Qualifiers: Laterality: right Lung location: lower lobe of lung Is this a current diagnosis for this admission?: YesPlan: We'll continue broad-spectrum IV antibiotic use patient is extubated (4) Hypotension (arterial) Qualifiers: Hypotension type: unspecified hypotension type Qualified Code(s): I95.9 - Hypotension, unspecified Is this a current diagnosis for this admission?: YesPlan: Secondary to sepsis which is now resolved. Patient did require 2 vasopressors which have now been weaned off (5) Septic shock Is this a current diagnosis for this admission?: YesPlan: Resolved with antibiotic, IV fluids, repair of bile leak (6) Coronary artery disease Qualifiers: Coronary Disease-Associated Artery/Lesion type: [place] artery [place] vs. transplanted heart: [place] heart Associated angina: without angina Qualified Code(s): I25.10 - Atherosclerotic heart disease of [place] coronary artery without angina pectoris Is this a current diagnosis for this admission?: YesPlan: Technique current medications (7) Diastolic CHF Qualifiers: Congestive heart failure chronicity: chronic Qualified Code(s): I50.32 - Chronic diastolic (congestive) heart failure Is this a current diagnosis for this admission?: YesPlan: Presently she appears euvolemic. Will continue current medications (8) Hypertension Qualifiers: Hypertension type: essential hypertension Qualified Code(s): I10 - Essential (primary) hypertension Is this a current diagnosis for this admission?: YesPlan: Presently normotensive off medications - Time Time Spent with patient: 25-34 minutes Critical Time spent with patient: 25-34 minutes Medications reviewed and adjusted accordingly: Yes
[2016-12-31] MEDS: POTASSI CL 20 MEQ/1/2NS 1L 20 MEQ/1,000 ML RTUINJ IV PRN (13:41)
--- NOTE | 2016-12-31 14:14 | PDOC PROGRESS REPORT ---
Subjective Progress Note for:: 12/27/16 Subjective:: Intubated and sedated Physical Exam Vital Signs: Temp Pulse Resp BP Pulse Ox 100.0 F 62 18 114/76 96 12/27/16 04:00 12/27/16 04:00 12/27/16 02:00 12/27/16 06:10 12/27/16 06:15 Intake & Output 12/26/16 12/27/16 12/28/16 06:59 06:59 06:59 Intake Total 6355 3664 Output Total 4642 3215 Balance 1728 449 Weight 85.7 kg 87.1 kg General appearance: PRESENT: no acute distress, disheveled, obese Head exam: PRESENT: atraumatic, normocephalic Eye exam: PRESENT: conjunctiva pale Mouth exam: PRESENT: dry mucosa, neck supple, other - ET tube in place Neck exam: ABSENT: carotid bruit, JVD, lymphadenopathy, thyromegaly Respiratory exam: PRESENT: decreased breath sounds, prolonged expiratory phas, symmetrical, unlabored, other - Breath sounds decreased particularly at the bases bilaterally Cardiovascular exam: PRESENT: RRR, +S1, +S2 Pulses: PRESENT: normal radial pulses GI/Abdominal exam: PRESENT: other - Right upper quadrant tenderness and guarding Rectal exam: PRESENT: deferred Gentrourinary exam: PRESENT: indwelling catheter Skin exam: PRESENT: dry, warm Results Laboratory Results: 12/27/16 05:20 12/27/16 05:20 12/26/16 12/26/16 12/27/16 12:15 14:10 05:20 WBC 12.0 H RBC 3.43 L Hgb 10.0 L Hct 29.5 L MCV 86 MCH 29.1 MCHC 33.8 RDW 13.8 Plt Count 290 Seg Neutrophils % 83.3 H Lymphocytes % 7.1 L Monocytes % 6.8 Eosinophils % 2.5 Basophils % 0.3 Absolute Neutrophils 10.0 H Absolute Lymphocytes 0.8 Absolute Monocytes 0.8 Absolute Eosinophils 0.3 Absolute Basophils 0.0 Carbonic Acid 1.19 HCO3/H2CO3 Ratio 19:1 ABG pH 7.38 ABG pCO2 39.4 ABG pO2 66.4 L ABG HCO3 22.9 ABG O2 Saturation 92.9 L ABG Base Excess -2.0 FiO2 40% Sodium 145.0 Potassium 3.3 L Chloride 111 H Carbon Dioxide 23 Anion Gap 11 BUN 8 Creatinine 0.77 Est GFR ( Amer) > 60 Est GFR (Non-Af Amer) > 60 Glucose 90 Lactic Acid Calcium 8.1 L Magnesium Total Bilirubin AST ALT Alkaline Phosphatase Total Protein Albumin Triglycerides 12/27/16 12/27/16 12/27/16 05:20 05:20 05:20 WBC RBC Hgb Hct MCV MCH MCHC RDW Plt Count Seg Neutrophils % Lymphocytes % Monocytes % Eosinophils % Basophils % Absolute Neutrophils Absolute Lymphocytes Absolute Monocytes Absolute Eosinophils Absolute Basophils Carbonic Acid 1.13 HCO3/H2CO3 Ratio 18:1 ABG pH 7.37 ABG pCO2 37.6 ABG pO2 73.8 L ABG HCO3 21.2 ABG O2 Saturation 94.5 ABG Base Excess -3.7 FiO2 35% Sodium 144.5 Potassium 3.0 L* Chloride 111 H Carbon Dioxide 23 Anion Gap 11 BUN 7 Creatinine 0.69 Est GFR ( Amer) > 60 Est GFR (Non-Af Amer) > 60 Glucose 117 H Lactic Acid 0.7 Calcium 7.9 L Magnesium 2.0 Total Bilirubin 0.4 AST 18 ALT 32 Alkaline Phosphatase 65 Total Protein 4.2 L Albumin 2.2 L Triglycerides 124 12/25/16 14:49 Troponin I < 0.012 Impressions: Acute Abdomen Series 12/22/16 19:25 IMPRESSION: NO RADIOGRAPHIC EVIDENCE FOR ACUTE ABDOMINAL DISEASE.Nonobstructive pattern. Lung Scan-VQ NM 12/23/16 00:00 IMPRESSION: NORMAL VENTILATION-PERFUSION LUNG SCAN. NEGATIVE FOR PULMONARY EMBOLI. Abdomen/Pelvis CT 12/23/16 14:35 IMPRESSION: 1. Increasing free fluid within the abdomen surrounding the liver , in the lesser sac and in the pelvis. There is no air to suggest abscess. 2. Right lower lobe pneumonia. Hepatobiliary Scan Nuclear Medicine 12/24/16 00:00 IMPRESSION: Contained bile leak in the surgical bed. KUB X-Ray 12/25/16 10:38 IMPRESSION: Post bile leak repair. Right subphrenic and right gallbladder fossa surgical drains are in place. Nonobstructive bowel gas pattern. Nasogastric tube, Hill catheter in good positioning Chest X-Ray 12/27/16 06:00 IMPRESSION: 1. Support tubes and lines as above. 2. Bibasilar hazy opacities likely representing combination of atelectasis/ infiltrate with associated effusions similar in the right lung base and slightly progressed in the left lung base. There is mild pulmonary vascular congestion centrally. Assessment & Plan - Diagnosis (1) Postoperative bile leak Is this a current diagnosis for this admission?: Yes (2) Tobacco dependency Is this a current diagnosis for this admission?: Yes (3) Pneumonia Qualifiers: Laterality: right Lung location: lower lobe of lung Is this a current diagnosis for this admission?: Yes - Time Critical Time spent with patient: 25-34 minutes
--- NOTE | 2016-12-31 14:18 | PDOC PROGRESS REPORT ---
Subjective Progress Note for:: 12/31/16 Physical Exam Vital Signs: Temp Pulse Resp BP Pulse Ox 100.1 F 69 18 125/77 97 12/31/16 07:28 12/31/16 07:28 12/31/16 07:28 12/31/16 07:28 12/31/16 07:01 Intake & Output 12/30/16 12/31/16 01/01/17 06:59 06:59 06:59 Intake Total 3112 2977 Output Total 1715 4729 50 Balance 1397 -1803 -50 Weight 88.4 kg 86.7 kg Results Laboratory Results: 12/30/16 04:40 12/30/16 04:40 12/25/16 14:49 Troponin I < 0.012 Impressions: Acute Abdomen Series 12/22/16 19:25 IMPRESSION: NO RADIOGRAPHIC EVIDENCE FOR ACUTE ABDOMINAL DISEASE.Nonobstructive pattern. Lung Scan-VQ NM 12/23/16 00:00 IMPRESSION: NORMAL VENTILATION-PERFUSION LUNG SCAN. NEGATIVE FOR PULMONARY EMBOLI. Abdomen/Pelvis CT 12/23/16 14:35 IMPRESSION: 1. Increasing free fluid within the abdomen surrounding the liver , in the lesser sac and in the pelvis. There is no air to suggest abscess. 2. Right lower lobe pneumonia. Hepatobiliary Scan Nuclear Medicine 12/24/16 00:00 IMPRESSION: Contained bile leak in the surgical bed. KUB X-Ray 12/25/16 10:38 IMPRESSION: Post bile leak repair. Right subphrenic and right gallbladder fossa surgical drains are in place. Nonobstructive bowel gas pattern. Nasogastric tube, Hill catheter in good positioning Endo Retro Cholangiopancreatogram 12/29/16 00:00 IMPRESSION: INTRA PROCEDURAL IMAGING ABOVE . Chest X-Ray 12/30/16 06:00 IMPRESSION: 1. Support tubes and lines as above. 2. Stable bibasilar hazy opacities, similar to prior study. SUPPORT DEVICE(S) IN EXPECTED LOCATIONS. Assessment & Plan - Diagnosis (1) Postoperative bile leak Is this a current diagnosis for this admission?: Yes (2) Tobacco dependency Is this a current diagnosis for this admission?: Yes (3) Pneumonia Qualifiers: Laterality: right Lung location: lower lobe of lung Is this a current diagnosis for this admission?: Yes
--- NOTE | 2016-12-31 15:55 | PDOC PROGRESS REPORT ---
Subjective Progress Note for:: 12/31/16 Subjective:: Intubated and sedated. Physical Exam Vital Signs: Temp Pulse Resp BP Pulse Ox 100.8 F H 72 18 130/71 H 97 12/31/16 13:41 12/31/16 14:05 12/31/16 14:05 12/31/16 13:41 12/31/16 14:05 Intake & Output 12/30/16 12/31/16 01/01/17 06:59 06:59 06:59 Intake Total 3112 2977 Output Total 1715 4747 600 Balance 1397 -1803 -600 Weight 88.4 kg 86.7 kg General appearance: PRESENT: no acute distress Respiratory exam: PRESENT: rhonchi Cardiovascular exam: PRESENT: RRR GI/Abdominal exam: PRESENT: other - Soft, nondistended, unable to determine tenderness. Output of her drain appears serosanguineous. Results Laboratory Results: 12/30/16 04:40 12/30/16 04:40 12/31/16 08:00 Carbonic Acid 1.13 HCO3/H2CO3 Ratio 23:1 ABG pH 7.47 H ABG pCO2 37.7 ABG pO2 70.5 L ABG HCO3 26.9 H ABG O2 Saturation 95.2 ABG Base Excess 3.2 FiO2 40% 12/25/16 14:49 Troponin I < 0.012 Impressions: Acute Abdomen Series 12/22/16 19:25 IMPRESSION: NO RADIOGRAPHIC EVIDENCE FOR ACUTE ABDOMINAL DISEASE.Nonobstructive pattern. Lung Scan-VQ NM 12/23/16 00:00 IMPRESSION: NORMAL VENTILATION-PERFUSION LUNG SCAN. NEGATIVE FOR PULMONARY EMBOLI. Abdomen/Pelvis CT 12/23/16 14:35 IMPRESSION: 1. Increasing free fluid within the abdomen surrounding the liver , in the lesser sac and in the pelvis. There is no air to suggest abscess. 2. Right lower lobe pneumonia. Hepatobiliary Scan Nuclear Medicine 12/24/16 00:00 IMPRESSION: Contained bile leak in the surgical bed. KUB X-Ray 12/25/16 10:38 IMPRESSION: Post bile leak repair. Right subphrenic and right gallbladder fossa surgical drains are in place. Nonobstructive bowel gas pattern. Nasogastric tube, Hill catheter in good positioning Endo Retro Cholangiopancreatogram 12/29/16 00:00 IMPRESSION: INTRA PROCEDURAL IMAGING ABOVE . Chest X-Ray 12/30/16 06:00 IMPRESSION: 1. Support tubes and lines as above. 2. Stable bibasilar hazy opacities, similar to prior study. SUPPORT DEVICE(S) IN EXPECTED LOCATIONS. Assessment & Plan - Diagnosis (1) Pneumonia Qualifiers: Laterality: right Lung location: lower lobe of lung Is this a current diagnosis for this admission?: Yes (2) Postoperative bile leak Is this a current diagnosis for this admission?: YesPlan: Status post reexploration with drainage followed by ERCP. Patient looks stable. Defer to pulmonary for timing of extubation.
[2016-12-31] MEDS: ATORVASTATIN CALCIUM 40 MG TABLET NG SCH (22:26)
[2017-01-01] MEDS: POTASSI CL 20 MEQ/1/2NS 1L 20 MEQ/1,000 ML RTUINJ IV PRN ×2 (01:57→15:37)
[2017-01-01] MEDS: PROPOFOL 100 ML IV PRN ×2 (02:01→05:40)
[2017-01-01] MEDS: PIPERACILLIN SODIUM/TAZOBACTAM 4.5 GM in NORMAL SALINE 100 ML IV SCH ×4 (02:02→22:06)
[2017-01-01] MEDS: IPRATROPIUM/ALBUTEROL 0.5-2.5 MG/3 ML AMPUL NEB SCH ×4 (02:25→21:07)
[2017-01-01] MEDS: HYDROMORPHONE HCL INJ/PF 2 MG/ML AMPULE IV PRN ×2 (05:02→10:36)
[2017-01-01 05:34] LABS: ARTERIAL BLOOD BASE EXCESS 1.7 mmol/L; ARTERIAL BLOOD O2 SATURATION 94.9 % (94-98)
[2017-01-01 05:35] LABS: ABSOLUTE EOSINOPHILS # (AUTO) 0.4 10^3/uL (0.0-0.6); ABSOLUTE LYMPHOCYTES (AUTO) 0.6 10^3/uL (0.5-4.7); ABSOLUTE MONOCYTES (AUTO) 0.7 10^3/uL (0.1-1.4); ABSOLUTE NEUT (AUTO) 6.9 10^3/uL (1.7-8.2); BASOPHILS % (AUTO) 0.3 % (0-2); EOSINOPHILS % (AUTO) 4.1 % (0-6); HEMATOCRIT 30.1 % (36.0-47.0); HEMOGLOBIN 10.2 g/dL (12.0-15.5); HGB HCT DIFFERENCE 0.5; LYMPHOCYTES % (AUTO) 6.6 % (13-45); MEAN CORPUSCULAR HEMOGLOBIN 28.7 pg (27.0-33.4); MEAN CORPUSCULAR HGB CONC 33.7 g/dL (32.0-36.0); MEAN CORPUSCULAR VOLUME 85 fl (80-97); RED BLOOD COUNT 3.54 10^6/uL (3.72-5.28); RED CELL DISTRIBUTION WIDTH 13.6 % (11.5-14.0); WHITE BLOOD COUNT 8.5 10^3/uL (4.0-10.5)
[2017-01-01 05:54] LABS: ALANINE AMINOTRANSFERASE 86 U/L (9-52); ALBUMIN 2.4 g/dL (3.5-5.0); ALKALINE PHOSPHATASE 74 U/L (38-126); ANION GAP 10 (5-19); ASPARTATE AMINO TRANSFERASE 103 U/L (14-36); BILIRUBIN,DIRECT 0.3 mg/dL (0.0-0.4); BILIRUBIN,TOTAL 0.4 mg/dL (0.2-1.3); BLOOD UREA NITROGEN 7 mg/dL (7-20); CALCIUM 8.1 mg/dL (8.4-10.2); CARBON DIOXIDE 28 mmol/L (22-30); CHLORIDE 103 mmol/L (98-107); CREATININE RESULT 0.61 mg/dL (0.52-1.25); GLUCOSE 82 mg/dL (75-110); POTASSIUM 3.4 mmol/L (3.6-5.0); SODIUM 141.3 mmol/L (137-145); TOTAL PROTEIN 4.6 g/dL (6.3-8.2)
--- NOTE | 2017-01-01 08:14 | PROGRESS NOTE E ---
Progress Note NAME: DIANE SALINAS : 1955 AGE: 61Y DATE: 01/01/2017 ROOM: 602 SUBJECTIVE: She remained afebrile and intubated. OBJECTIVE: ABDOMEN: Soft and nontender. KELLIE drain still about a total of 200 mL in the past 24 hours. PLAN: Possible extubation today. DICTATING PHYSICIAN: MAGY PATEL M.D. [id number] PHY#: [id number] ID: [id number] JOB#: [id number] ACCT: [id number] cc: >
[2017-01-01] MEDS: POTASSI CL 20 MEQ/50 ML RIDER 50 ML IV SCH ×2 (10:35→12:00)
--- NOTE | 2017-01-01 11:43 | PDOC PROGRESS REPORT ---
Subjective Progress Note for:: 01/01/17 Subjective:: Patient is seen on morning rounds. She remains intubated and is lightly sedated on the ventilator. She became anxious and tachypneic during yesterday's vent weaning trials. She has been awake and following commands when propofol has been weaned. There is presently no family at the bedside. Vent weaning trials today for possible extubation. Physical Exam Vital Signs: Temp Pulse Resp BP Pulse Ox 98.7 F 105 H 18 134/77 H 95 01/01/17 08:00 01/01/17 09:16 01/01/17 10:39 01/01/17 09:16 01/01/17 10:39 Intake & Output 12/31/16 01/01/17 01/02/17 06:59 06:59 06:59 Intake Total 2977 2263 Output Total 4780 2530 100 Balance -1803 -267 -100 Weight 86.7 kg 87.6 kg General appearance: PRESENT: no acute distress, obese, well-developed, well- nourished, other - orally intubated to vent Head exam: PRESENT: atraumatic Eye exam: PRESENT: conjunctiva pink, EOMI, PERRLA. ABSENT: scleral icterus Ear exam: PRESENT: normal external ear exam Mouth exam: PRESENT: moist, tongue midline Neck exam: ABSENT: carotid bruit, JVD, lymphadenopathy, thyromegaly Respiratory exam: PRESENT: rhonchi, symmetrical, unlabored, other - bilaterally Cardiovascular exam: PRESENT: RRR. ABSENT: diastolic murmur, rubs, systolic murmur Pulses: PRESENT: normal dorsalis pedis pul Vascular exam: PRESENT: normal capillary refill GI/Abdominal exam: PRESENT: hypoactive bowel sounds, soft, other - KELLIE drains with pale green liquid drainage. ABSENT: distended, guarding, mass, organolmegaly, rebound, tenderness Rectal exam: PRESENT: deferred Extremities exam: PRESENT: full ROM. ABSENT: calf tenderness, clubbing, pedal edema Neurological exam: PRESENT: CN II-XII grossly intact, other - orally intubated to vent on propofol at the present time Psychiatric exam: PRESENT: appropriate affect Skin exam: PRESENT: dry, intact, warm. ABSENT: cyanosis, rash Results Laboratory Results: 01/01/17 05:06 01/01/17 05:06 0401/01/17 01/01/17 05:06 05:06 05:06 WBC 8.5 RBC 3.54 L Hgb 10.2 L Hct 30.1 L MCV 85 MCH 28.7 MCHC 33.7 RDW 13.6 Plt Count 394 Seg Neutrophils % 81.0 H Lymphocytes % 6.6 L Monocytes % 8.0 Eosinophils % 4.1 Basophils % 0.3 Absolute Neutrophils 6.9 Absolute Lymphocytes 0.6 Absolute Monocytes 0.7 Absolute Eosinophils 0.4 Absolute Basophils 0.0 Carbonic Acid 1.17 HCO3/H2CO3 Ratio 22:1 ABG pH 7.44 ABG pCO2 39.0 ABG pO2 71.2 L ABG HCO3 25.9 ABG O2 Saturation 94.9 ABG Base Excess 1.7 FiO2 40% Sodium 141.3 Potassium 3.4 L Chloride 103 Carbon Dioxide 28 Anion Gap 10 BUN 7 Creatinine 0.61 Est GFR ( Amer) > 60 Est GFR (Non-Af Amer) > 60 Glucose 82 Calcium 8.1 L Magnesium 2.0 Total Bilirubin 0.4 AST 103 H ALT 86 H Alkaline Phosphatase 74 Total Protein 4.6 L Albumin 2.4 L 12/25/16 14:49 Troponin I < 0.012 Impressions: Acute Abdomen Series 12/22/16 19:25 IMPRESSION: NO RADIOGRAPHIC EVIDENCE FOR ACUTE ABDOMINAL DISEASE.Nonobstructive pattern. Lung Scan-VQ NM 12/23/16 00:00 IMPRESSION: NORMAL VENTILATION-PERFUSION LUNG SCAN. NEGATIVE FOR PULMONARY EMBOLI. Abdomen/Pelvis CT 12/23/16 14:35 IMPRESSION: 1. Increasing free fluid within the abdomen surrounding the liver , in the lesser sac and in the pelvis. There is no air to suggest abscess. 2. Right lower lobe pneumonia. Hepatobiliary Scan Nuclear Medicine 12/24/16 00:00 IMPRESSION: Contained bile leak in the surgical bed. KUB X-Ray 12/25/16 10:38 IMPRESSION: Post bile leak repair. Right subphrenic and right gallbladder fossa surgical drains are in place. Nonobstructive bowel gas pattern. Nasogastric tube, Hill catheter in good positioning Endo Retro Cholangiopancreatogram 12/29/16 00:00 IMPRESSION: INTRA PROCEDURAL IMAGING ABOVE . Chest X-Ray 01/01/17 06:00 IMPRESSION: Stable small right pleural effusion and bibasilar airspace disease Tubes and lines as above Assessment & Plan - Diagnosis (1) Biliary anastomotic leak Is this a current diagnosis for this admission?: YesPlan: Patient underwent ERCP with biliary stent placement after continued leak post laparoscopy (2) Postoperative bile leak Is this a current diagnosis for this admission?: YesPlan: Biliary stent placement. Patient had laparoscopic postoperative repair with drain with continued bile leak (3) Pneumonia Qualifiers: Laterality: right Lung location: lower lobe of lung Is this a current diagnosis for this admission?: YesPlan: We'll continue broad-spectrum IV antibiotic use patient is extubated (4) Hypotension (arterial) Qualifiers: Hypotension type: unspecified hypotension type Qualified Code(s): I95.9 - Hypotension, unspecified Is this a current diagnosis for this admission?: YesPlan: Secondary to sepsis which is now resolved. Patient did require 2 vasopressors which have now been weaned off (5) Septic shock Is this a current diagnosis for this admission?: YesPlan: Resolved with antibiotic, IV fluids, repair of bile leak (6) Coronary artery disease Qualifiers: Coronary Disease-Associated Artery/Lesion type: [place] artery [place] vs. transplanted heart: [place] heart Associated angina: without angina Qualified Code(s): I25.10 - Atherosclerotic heart disease of [place] coronary artery without angina pectoris Is this a current diagnosis for this admission?: YesPlan: Technique current medications (7) Diastolic CHF Qualifiers: Congestive heart failure chronicity: chronic Qualified Code(s): I50.32 - Chronic diastolic (congestive) heart failure Is this a current diagnosis for this admission?: YesPlan: Presently she appears euvolemic. Will continue current medications (8) Hypertension Qualifiers: Hypertension type: essential hypertension Qualified Code(s): I10 - Essential (primary) hypertension Is this a current diagnosis for this admission?: YesPlan: Presently normotensive off medications - Time Time Spent with patient: 25-34 minutes Critical Time spent with patient: 15-24 minutes Medications reviewed and adjusted accordingly: Yes
[2017-01-01] MEDS: FUROSEMIDE INJ/PF 20 MG/2 ML SDV IV SCH ×2 (11:59→22:05)
[2017-01-01] MEDS: HALOPERIDOL LACTATE INJ 5 MG/1 ML VIAL IV PRN ×2 (12:00→16:46)
[2017-01-01] MEDS: ASPIRIN 81 MG TABLET, CHEWABLE NG SCH (12:06)
[2017-01-01] MEDS: FLUTICASONE NASAL SPRAY 50 MCG/SPRY 120 SPRAY/16 GM NASL SCH ×2 (12:06→22:07)
[2017-01-01] MEDS ORDERED: ONDANSETRON HCL INJ/PF 4 MG/2 ML SDV IV PRN (12:11)
[2017-01-01] MEDS ORDERED: ONDANSETRON HCL INJ/PF 4 MG/2 ML SDV ONE (12:13)
--- NOTE | 2017-01-01 14:09 | PDOC PROGRESS REPORT ---
Subjective Progress Note for:: 01/01/17 Subjective:: Intubated and sedated but responsive Physical Exam Vital Signs: Temp Pulse Resp BP Pulse Ox 98.7 F 63 18 102/57 L 96 01/01/17 08:00 01/01/17 08:00 01/01/17 08:00 01/01/17 08:00 01/01/17 08:00 Intake & Output 12/31/16 01/01/17 01/02/17 06:59 06:59 06:59 Intake Total 2977 2263 Output Total 4773 2530 100 Balance -1803 -267 -100 Weight 86.7 kg 87.6 kg General appearance: PRESENT: no acute distress, disheveled, obese, well- developed Head exam: PRESENT: atraumatic, normocephalic Eye exam: PRESENT: conjunctiva pale, EOMI Mouth exam: PRESENT: moist, neck supple, other - ET tube in Neck exam: ABSENT: carotid bruit, JVD, lymphadenopathy, thyromegaly Respiratory exam: PRESENT: decreased breath sounds, prolonged expiratory phas, rhonchi, symmetrical, unlabored Cardiovascular exam: PRESENT: RRR, +S1, +S2 Pulses: PRESENT: normal radial pulses GI/Abdominal exam: PRESENT: normal bowel sounds, soft, other - Status post ERCP. ABSENT: distended, guarding, mass, organolmegaly, rebound, tenderness Rectal exam: PRESENT: deferred Gentrourinary exam: PRESENT: indwelling catheter Musculoskeletal exam: PRESENT: normal inspection Neurological exam: PRESENT: awake Skin exam: PRESENT: dry, warm Results Laboratory Results: 01/01/17 05:06 01/01/17 05:06 12/31/16 01/01/17 01/01/17 08:00 05:06 05:06 WBC 8.5 RBC 3.54 L Hgb 10.2 L Hct 30.1 L MCV 85 MCH 28.7 MCHC 33.7 RDW 13.6 Plt Count 394 Seg Neutrophils % 81.0 H Lymphocytes % 6.6 L Monocytes % 8.0 Eosinophils % 4.1 Basophils % 0.3 Absolute Neutrophils 6.9 Absolute Lymphocytes 0.6 Absolute Monocytes 0.7 Absolute Eosinophils 0.4 Absolute Basophils 0.0 Carbonic Acid 1.13 1.17 HCO3/H2CO3 Ratio 23:1 22:1 ABG pH 7.47 H 7.44 ABG pCO2 37.7 39.0 ABG pO2 70.5 L 71.2 L ABG HCO3 26.9 H 25.9 ABG O2 Saturation 95.2 94.9 ABG Base Excess 3.2 1.7 FiO2 40% 40% Sodium Potassium Chloride Carbon Dioxide Anion Gap BUN Creatinine Est GFR ( Amer) Est GFR (Non-Af Amer) Glucose Calcium Magnesium Total Bilirubin AST ALT Alkaline Phosphatase Total Protein Albumin 01/01/17 05:06 WBC RBC Hgb Hct MCV MCH MCHC RDW Plt Count Seg Neutrophils % Lymphocytes % Monocytes % Eosinophils % Basophils % Absolute Neutrophils Absolute Lymphocytes Absolute Monocytes Absolute Eosinophils Absolute Basophils Carbonic Acid HCO3/H2CO3 Ratio ABG pH ABG pCO2 ABG pO2 ABG HCO3 ABG O2 Saturation ABG Base Excess FiO2 Sodium 141.3 Potassium 3.4 L Chloride 103 Carbon Dioxide 28 Anion Gap 10 BUN 7 Creatinine 0.61 Est GFR ( Amer) > 60 Est GFR (Non-Af Amer) > 60 Glucose 82 Calcium 8.1 L Magnesium 2.0 Total Bilirubin 0.4 AST 103 H ALT 86 H Alkaline Phosphatase 74 Total Protein 4.6 L Albumin 2.4 L 12/25/16 14:49 Troponin I < 0.012 Impressions: Acute Abdomen Series 12/22/16 19:25 IMPRESSION: NO RADIOGRAPHIC EVIDENCE FOR ACUTE ABDOMINAL DISEASE.Nonobstructive pattern. Lung Scan-VQ NM 12/23/16 00:00 IMPRESSION: NORMAL VENTILATION-PERFUSION LUNG SCAN. NEGATIVE FOR PULMONARY EMBOLI. Abdomen/Pelvis CT 12/23/16 14:35 IMPRESSION: 1. Increasing free fluid within the abdomen surrounding the liver , in the lesser sac and in the pelvis. There is no air to suggest abscess. 2. Right lower lobe pneumonia. Hepatobiliary Scan Nuclear Medicine 12/24/16 00:00 IMPRESSION: Contained bile leak in the surgical bed. KUB X-Ray 12/25/16 10:38 IMPRESSION: Post bile leak repair. Right subphrenic and right gallbladder fossa surgical drains are in place. Nonobstructive bowel gas pattern. Nasogastric tube, Hill catheter in good positioning Endo Retro Cholangiopancreatogram 12/29/16 00:00 IMPRESSION: INTRA PROCEDURAL IMAGING ABOVE . Assessment & Plan - Diagnosis (1) Postoperative bile leak Is this a current diagnosis for this admission?: YesPlan: Status post ERCP doing well at this time (2) Tobacco dependency Is this a current diagnosis for this admission?: YesPlan: transdermal patch as you have started (3) Pneumonia Qualifiers: Laterality: right Lung location: lower lobe of lung Is this a current diagnosis for this admission?: YesPlan: r sided effusion minimal : basilar airspace dx T Max 98.5 no + cultures thus far (4) Respiratory failure Is this a current diagnosis for this admission?: YesPlan: Respiratory rate, minute ventilation, FiO2, airway pressures, just patient will be successfully extubated will proceed with extubation - Time Critical Time spent with patient: 35 or more minutes - 60 minutes extubation
[2017-01-01] MEDS ORDERED: MORPHINE SULFATE 10 MG/ML INJ IV PRN (14:39)
[2017-01-01] MEDS ORDERED: HALOPERIDOL LACTATE INJ 5 MG/1 ML VIAL IV PRN (19:57)
[2017-01-01] MEDS: ATORVASTATIN CALCIUM 40 MG TABLET NG SCH (22:07)
[2017-01-02] MEDS: IPRATROPIUM/ALBUTEROL 0.5-2.5 MG/3 ML AMPUL NEB SCH ×4 (01:06→20:31)
[2017-01-02] MEDS: PIPERACILLIN SODIUM/TAZOBACTAM 4.5 GM in NORMAL SALINE 100 ML IV SCH (03:39)
[2017-01-02 05:52] LABS: ARTERIAL BLOOD O2 SATURATION 98.8 % (94-98)
[2017-01-02 05:57] LABS: ABSOLUTE EOSINOPHILS # (AUTO) 0.3 10^3/uL (0.0-0.6); ABSOLUTE LYMPHOCYTES (AUTO) 0.6 10^3/uL (0.5-4.7); ABSOLUTE MONOCYTES (AUTO) 0.8 10^3/uL (0.1-1.4); ABSOLUTE NEUT (AUTO) 6.7 10^3/uL (1.7-8.2); BASOPHILS % (AUTO) 0.4 % (0-2); EOSINOPHILS % (AUTO) 3.9 % (0-6); HEMATOCRIT 30.4 % (36.0-47.0); HEMOGLOBIN 10.2 g/dL (12.0-15.5); HGB HCT DIFFERENCE 0.2; LYMPHOCYTES % (AUTO) 7.5 % (13-45); MEAN CORPUSCULAR HEMOGLOBIN 28.4 pg (27.0-33.4); MEAN CORPUSCULAR HGB CONC 33.5 g/dL (32.0-36.0); MEAN CORPUSCULAR VOLUME 85 fl (80-97); MONOCYTES % (AUTO) 9.1 % (3-13); RED BLOOD COUNT 3.58 10^6/uL (3.72-5.28); RED CELL DISTRIBUTION WIDTH 13.1 % (11.5-14.0); SEGMENTED NEUTROPHILS % (AUTO) 79.1 % (42-78); WHITE BLOOD COUNT 8.5 10^3/uL (4.0-10.5)
[2017-01-02 06:15] LABS: ALANINE AMINOTRANSFERASE 93 U/L (9-52); ALBUMIN 2.6 g/dL (3.5-5.0); ALKALINE PHOSPHATASE 77 U/L (38-126); ANION GAP 15 (5-19); ASPARTATE AMINO TRANSFERASE 98 U/L (14-36); BILIRUBIN,DIRECT 0.6 mg/dL (0.0-0.4); BILIRUBIN,TOTAL 0.9 mg/dL (0.2-1.3); BLOOD UREA NITROGEN 6 mg/dL (7-20); CALCIUM 8.1 mg/dL (8.4-10.2); CARBON DIOXIDE 25 mmol/L (22-30); CHLORIDE 102 mmol/L (98-107); GLUCOSE 78 mg/dL (75-110); MAGNESIUM 1.9 mg/dL (1.6-2.3); POTASSIUM 3.8 mmol/L (3.6-5.0); SODIUM 141.6 mmol/L (137-145); TOTAL PROTEIN 5.2 g/dL (6.3-8.2)
[2017-01-02] MEDS: POTASSI CL 20 MEQ/1/2NS 1L 20 MEQ/1,000 ML RTUINJ IV PRN ×3 (08:26→22:51)
[2017-01-02] MEDS: FUROSEMIDE INJ/PF 20 MG/2 ML SDV IV SCH ×2 (11:31→22:52)
[2017-01-02] MEDS: ASPIRIN 81 MG TABLET, CHEWABLE NG SCH (11:33)
--- NOTE | 2017-01-02 11:33 | PROGRESS NOTE E ---
Progress Note NAME: DIANE SALINAS : 1955 AGE: 61Y DATE: 01/02/2017 ROOM: 602 SUBJECTIVE: She is now extubated and she feels better. Her vital signs are good with no fever. Her white count is normal at 8.5 and a hemoglobin of 10.2. Her liver function is just slightly elevated with AST of 98 from 103 yesterday and the ALT to 93 from 86 yesterday. Her abdomen is soft, nontender. KELLIE drains clear yellowish drainage, slightly decreased today. PLAN: The plan is to start her on a diet and possibly keep her another day in the unit unless beds are needed in the unit. Again, discussed this case with Dr. Abraham the hospital liaison. DICTATING PHYSICIAN: MAGY PATEL M.D. [id number] PHY#: [id number] ID: [id number] JOB#: [id number] ACCT: [id number] cc: >
[2017-01-02] MEDS: FLUTICASONE NASAL SPRAY 50 MCG/SPRY 120 SPRAY/16 GM NASL SCH ×2 (11:38→22:53)
[2017-01-02] MEDS ORDERED: LORAZEPAM INJ 2 MG/1 ML VIAL IV PRN (18:13)
[2017-01-02] MEDS: METOPROLOL TARTRATE 25 MG TABLET NG SCH (22:52)
[2017-01-02] MEDS: ATORVASTATIN CALCIUM 40 MG TABLET NG SCH (22:53)
[2017-01-03] MEDS: IPRATROPIUM/ALBUTEROL 0.5-2.5 MG/3 ML AMPUL NEB SCH ×4 (01:53→19:33)
[2017-01-03 06:38] LABS: ABSOLUTE EOSINOPHILS # (AUTO) 0.3 10^3/uL (0.0-0.6); ABSOLUTE LYMPHOCYTES (AUTO) 1.2 10^3/uL (0.5-4.7); ABSOLUTE MONOCYTES (AUTO) 0.9 10^3/uL (0.1-1.4); ABSOLUTE NEUT (AUTO) 8.4 10^3/uL (1.7-8.2); BASOPHILS % (AUTO) 0.4 % (0-2); EOSINOPHILS % (AUTO) 2.8 % (0-6); HEMATOCRIT 34.8 % (36.0-47.0); HEMOGLOBIN 11.8 g/dL (12.0-15.5); HGB HCT DIFFERENCE 0.6; LYMPHOCYTES % (AUTO) 10.9 % (13-45); MEAN CORPUSCULAR HEMOGLOBIN 28.5 pg (27.0-33.4); MEAN CORPUSCULAR HGB CONC 33.8 g/dL (32.0-36.0); MEAN CORPUSCULAR VOLUME 84 fl (80-97); MONOCYTES % (AUTO) 7.9 % (3-13); RED BLOOD COUNT 4.12 10^6/uL (3.72-5.28); RED CELL DISTRIBUTION WIDTH 13.2 % (11.5-14.0); WHITE BLOOD COUNT 10.8 10^3/uL (4.0-10.5)
[2017-01-03 06:53] LABS: ALANINE AMINOTRANSFERASE 89 U/L (9-52); ALKALINE PHOSPHATASE 83 U/L (38-126); ANION GAP 14 (5-19); ASPARTATE AMINO TRANSFERASE 78 U/L (14-36); BILIRUBIN,DIRECT 0.4 mg/dL (0.0-0.4); BILIRUBIN,TOTAL 0.7 mg/dL (0.2-1.3); BLOOD UREA NITROGEN 5 mg/dL (7-20); CALCIUM 8.8 mg/dL (8.4-10.2); CARBON DIOXIDE 26 mmol/L (22-30); CHLORIDE 102 mmol/L (98-107); CREATININE RESULT 0.56 mg/dL (0.52-1.25); GLUCOSE 98 mg/dL (75-110); MAGNESIUM 1.8 mg/dL (1.6-2.3); POTASSIUM 4.1 mmol/L (3.6-5.0); TOTAL PROTEIN 5.6 g/dL (6.3-8.2)
[2017-01-03] MEDS ORDERED: AMLODIPINE BESYLATE 2.5 MG TABLET PO SCH (09:30)
[2017-01-03] MEDS: FUROSEMIDE INJ/PF 20 MG/2 ML SDV IV SCH ×2 (10:35→17:07)
[2017-01-03] MEDS: ENALAPRIL MALEATE 10 MG TABLET NG SCH (10:35)
[2017-01-03] MEDS: ASPIRIN 81 MG TABLET, CHEWABLE PO SCH (10:35)
[2017-01-03] MEDS: AMLODIPINE BESYLATE 5 MG TABLET PO SCH (10:36)
[2017-01-03] MEDS: METOPROLOL TARTRATE 25 MG TABLET PO SCH ×2 (10:36→21:12)
[2017-01-03] MEDS: FLUTICASONE NASAL SPRAY 50 MCG/SPRY 120 SPRAY/16 GM NASL SCH ×2 (10:37→21:13)
--- NOTE | 2017-01-03 13:05 | PDOC PROGRESS REPORT ---
Subjective Progress Note for:: 01/03/17 Subjective:: Patient is seen on morning rounds. Patient is sitting out of bed in bedside chair. Her daughter and sister are also at bedside. She denies any shortness of breath, dyspnea or chest pain. She denies any nausea, abdominal pain or diarrhea. She states she is hungry. She is tolerating clear liquids without any difficulty. She denies any arthralgias or myalgias. She denies any fevers or chills. Respiratory review of systems are negative. Physical Exam Vital Signs: Temp Pulse Resp BP Pulse Ox 98.9 F 81 18 149/86 H 91 L 01/03/17 10:48 01/03/17 10:48 01/03/17 10:48 01/03/17 10:48 01/03/17 10:48 Intake & Output 01/02/17 01/03/17 01/04/17 06:59 06:59 06:59 Intake Total 5 1952 436 Output Total 5005 5490 100 Balance -2970 -3538 336 Weight 83.8 kg 76 kg General appearance: PRESENT: no acute distress, well-developed, well-nourished Head exam: PRESENT: atraumatic, normocephalic Eye exam: PRESENT: conjunctiva pink, EOMI, PERRLA. ABSENT: scleral icterus Ear exam: PRESENT: normal external ear exam Mouth exam: PRESENT: moist, tongue midline Neck exam: ABSENT: carotid bruit, JVD, lymphadenopathy, thyromegaly Respiratory exam: PRESENT: clear to auscultation duncan, decreased breath sounds, symmetrical, unlabored Cardiovascular exam: PRESENT: RRR. ABSENT: diastolic murmur, rubs, systolic murmur Pulses: PRESENT: normal dorsalis pedis pul Vascular exam: PRESENT: normal capillary refill GI/Abdominal exam: PRESENT: normal bowel sounds, soft. ABSENT: distended, guarding, mass, organolmegaly, rebound, tenderness Rectal exam: PRESENT: deferred Extremities exam: PRESENT: full ROM. ABSENT: calf tenderness, clubbing, pedal edema Neurological exam: PRESENT: alert, awake, oriented to person, oriented to place , oriented to time, oriented to situation, CN II-XII grossly intact. ABSENT: motor sensory deficit Psychiatric exam: PRESENT: appropriate affect, normal mood. ABSENT: homicidal ideation, suicidal ideation Skin exam: PRESENT: dry, intact, warm. ABSENT: cyanosis, rash Results Laboratory Results: 01/03/17 05:52 01/03/17 05:52 01/03/17 01/03/17 05:52 05:52 WBC 10.8 H RBC 4.12 Hgb 11.8 L Hct 34.8 L MCV 84 MCH 28.5 MCHC 33.8 RDW 13.2 Plt Count 602 H Seg Neutrophils % 78.0 Lymphocytes % 10.9 L Monocytes % 7.9 Eosinophils % 2.8 Basophils % 0.4 Absolute Neutrophils 8.4 H Absolute Lymphocytes 1.2 Absolute Monocytes 0.9 Absolute Eosinophils 0.3 Absolute Basophils 0.0 Sodium 142.0 Potassium 4.1 Chloride 102 Carbon Dioxide 26 Anion Gap 14 BUN 5 L Creatinine 0.56 Est GFR ( Amer) > 60 Est GFR (Non-Af Amer) > 60 Glucose 98 Calcium 8.8 Magnesium 1.8 Total Bilirubin 0.7 AST 78 H ALT 89 H Alkaline Phosphatase 83 Total Protein 5.6 L Albumin 3.0 L 12/25/16 14:49 Troponin I < 0.012 Impressions: Acute Abdomen Series 12/22/16 19:25 IMPRESSION: NO RADIOGRAPHIC EVIDENCE FOR ACUTE ABDOMINAL DISEASE.Nonobstructive pattern. Lung Scan-VQ NM 12/23/16 00:00 IMPRESSION: NORMAL VENTILATION-PERFUSION LUNG SCAN. NEGATIVE FOR PULMONARY EMBOLI. Abdomen/Pelvis CT 12/23/16 14:35 IMPRESSION: 1. Increasing free fluid within the abdomen surrounding the liver , in the lesser sac and in the pelvis. There is no air to suggest abscess. 2. Right lower lobe pneumonia. Hepatobiliary Scan Nuclear Medicine 12/24/16 00:00 IMPRESSION: Contained bile leak in the surgical bed. KUB X-Ray 12/25/16 10:38 IMPRESSION: Post bile leak repair. Right subphrenic and right gallbladder fossa surgical drains are in place. Nonobstructive bowel gas pattern. Nasogastric tube, Hill catheter in good positioning Endo Retro Cholangiopancreatogram 12/29/16 00:00 IMPRESSION: INTRA PROCEDURAL IMAGING ABOVE . Chest X-Ray 01/02/17 06:00 IMPRESSION: Similar appearance of bilateral basilar atelectasis -pleural effusions. Right subclavian central venous catheter tip overlies the mid portion of the right atrium, similar to the prior study. Assessment & Plan - Diagnosis (1) Biliary anastomotic leak Is this a current diagnosis for this admission?: YesPlan: Management per GI and surgery. She she is tolerating clear liquids without any difficulty and she is hungry. Her bowels have moved (2) Postoperative bile leak Is this a current diagnosis for this admission?: YesPlan: Biliary stent placement. [address] (3) Pneumonia Qualifiers: Laterality: right Lung location: lower lobe of lung Is this a current diagnosis for this admission?: YesPlan: Today is day 7 of Zosyn, her leucocytosis has resolved and chest xray without infiltrates (4) Hypotension (arterial) Qualifiers: Hypotension type: unspecified hypotension type Qualified Code(s): I95.9 - Hypotension, unspecified Is this a current diagnosis for this admission?: YesPlan: Resolved with treatment of sepsis (5) Septic shock Is this a current diagnosis for this admission?: YesPlan: Resolved with antibiotic, IV fluids, repair of bile leak (6) Coronary artery disease Qualifiers: Coronary Disease-Associated Artery/Lesion type: [place] artery [place] vs. transplanted heart: [place] heart Associated angina: without angina Qualified Code(s): I25.10 - Atherosclerotic heart disease of [place] coronary artery without angina pectoris Is this a current diagnosis for this admission?: YesPlan: Technique current medications (7) Diastolic CHF Qualifiers: Congestive heart failure chronicity: chronic Qualified Code(s): I50.32 - Chronic diastolic (congestive) heart failure Is this a current diagnosis for this admission?: YesPlan: Presently she appears euvolemic. Will continue current medications (8) Hypertension Qualifiers: Hypertension type: essential hypertension Qualified Code(s): I10 - Essential (primary) hypertension Is this a current diagnosis for this admission?: YesPlan: Presently normotensive off medications - Time Time Spent with patient: 25-34 minutes Critical Time spent with patient: 15-24 minutes Anticipated discharge: Home
--- NOTE | 2017-01-03 15:35 | PDOC PROGRESS REPORT ---
Subjective Progress Note for:: 01/02/17 Subjective:: extubated x 24 h ok Physical Exam Vital Signs: Temp Pulse Resp BP Pulse Ox 98.1 F 85 14 134/77 H 95 01/02/17 07:28 01/02/17 05:38 01/02/17 06:03 01/02/17 06:03 01/02/17 06:03 Intake & Output 01/01/17 01/02/17 01/03/17 06:59 06:59 06:59 Intake Total 2263 2035 Output Total 2530 5005 350 Balance -267 -2970 -350 Weight 87.6 kg 83.8 kg General appearance: PRESENT: no acute distress, disheveled Head exam: PRESENT: atraumatic, normocephalic Eye exam: PRESENT: conjunctiva pale, EOMI Mouth exam: PRESENT: dry mucosa, neck supple Neck exam: ABSENT: carotid bruit, JVD, lymphadenopathy, thyromegaly Respiratory exam: PRESENT: decreased breath sounds, prolonged expiratory phas, rhonchi, symmetrical, unlabored Cardiovascular exam: PRESENT: RRR, +S1, +S2 Pulses: PRESENT: normal radial pulses GI/Abdominal exam: PRESENT: normal bowel sounds, soft. ABSENT: distended, guarding, mass, organolmegaly, rebound, tenderness Rectal exam: PRESENT: deferred Gentrourinary exam: PRESENT: indwelling catheter Musculoskeletal exam: PRESENT: normal inspection Neurological exam: PRESENT: awake Skin exam: PRESENT: dry, warm Results Laboratory Results: 01/02/17 05:30 01/02/17 05:30 01/02/17 01/02/17 01/02/17 05:30 05:30 05:30 WBC 8.5 RBC 3.58 L Hgb 10.2 L Hct 30.4 L MCV 85 MCH 28.4 MCHC 33.5 RDW 13.1 Plt Count 438 Seg Neutrophils % 79.1 H Lymphocytes % 7.5 L Monocytes % 9.1 Eosinophils % 3.9 Basophils % 0.4 Absolute Neutrophils 6.7 Absolute Lymphocytes 0.6 Absolute Monocytes 0.8 Absolute Eosinophils 0.3 Absolute Basophils 0.0 Carbonic Acid 1.11 HCO3/H2CO3 Ratio 20:1 ABG pH 7.42 ABG pCO2 36.9 ABG pO2 137.3 H ABG HCO3 23.3 ABG O2 Saturation 98.8 H ABG Base Excess -1.0 FiO2 40% Sodium 141.6 Potassium 3.8 Chloride 102 Carbon Dioxide 25 Anion Gap 15 BUN 6 L Creatinine 0.60 Est GFR ( Amer) > 60 Est GFR (Non-Af Amer) > 60 Glucose 78 Calcium 8.1 L Magnesium 1.9 Total Bilirubin 0.9 AST 98 H ALT 93 H Alkaline Phosphatase 77 Total Protein 5.2 L Albumin 2.6 L 12/25/16 14:49 Troponin I < 0.012 Impressions: Acute Abdomen Series 12/22/16 19:25 IMPRESSION: NO RADIOGRAPHIC EVIDENCE FOR ACUTE ABDOMINAL DISEASE.Nonobstructive pattern. Lung Scan-VQ NM 12/23/16 00:00 IMPRESSION: NORMAL VENTILATION-PERFUSION LUNG SCAN. NEGATIVE FOR PULMONARY EMBOLI. Abdomen/Pelvis CT 12/23/16 14:35 IMPRESSION: 1. Increasing free fluid within the abdomen surrounding the liver , in the lesser sac and in the pelvis. There is no air to suggest abscess. 2. Right lower lobe pneumonia. Hepatobiliary Scan Nuclear Medicine 12/24/16 00:00 IMPRESSION: Contained bile leak in the surgical bed. KUB X-Ray 12/25/16 10:38 IMPRESSION: Post bile leak repair. Right subphrenic and right gallbladder fossa surgical drains are in place. Nonobstructive bowel gas pattern. Nasogastric tube, Hill catheter in good positioning Endo Retro Cholangiopancreatogram 12/29/16 00:00 IMPRESSION: INTRA PROCEDURAL IMAGING ABOVE . Chest X-Ray 01/02/17 06:00 IMPRESSION: Similar appearance of bilateral basilar atelectasis -pleural effusions. Right subclavian central venous catheter tip overlies the mid portion of the right atrium, similar to the prior study. Assessment & Plan - Diagnosis (1) Postoperative bile leak Is this a current diagnosis for this admission?: Yes (2) Tobacco dependency Is this a current diagnosis for this admission?: Yes (3) Pneumonia Qualifiers: Laterality: right Lung location: lower lobe of lung Is this a current diagnosis for this admission?: Yes (4) Respiratory failure Is this a current diagnosis for this admission?: YesPlan: s/p extubation doing ok
--- NOTE | 2017-01-03 15:48 | PROGRESS NOTE E ---
Progress Note NAME: DIANE SALINAS : 1955 AGE: 61Y DATE: ROOM: 326 Today, she feels a lot better. She is hungry. Her KELLIE is still draining. Her vital signs are stable. No fever. Heart rate of 87. Abdomen is soft, nontender. KELLIE is still draining about 60 mL of greenish light fluid. Her white count is 10.8 this morning. Hemoglobin is 11.8. LFTs: Alkaline phosphatase and AST slightly elevated at 89 and 78 respectively. Alkaline phosphatase is normal. I will start her on a soft diet today. Will keep the KELLIE drain for now. Continue her on IV antibiotic therapy. DICTATING PHYSICIAN: MAGY PATEL M.D. [id number] PHY#: [id number] ID: [id number] JOB#: [id number] ACCT: [id number] cc: >
[2017-01-03] MEDS: ATORVASTATIN CALCIUM 40 MG TABLET PO SCH (21:12)
[2017-01-04] MEDS: IPRATROPIUM/ALBUTEROL 0.5-2.5 MG/3 ML AMPUL NEB SCH ×4 (02:02→20:59)
[2017-01-04 05:24] LABS: ABSOLUTE BASOPHILS # (AUTO) 0.1 10^3/uL (0.0-0.2); ABSOLUTE EOSINOPHILS # (AUTO) 0.3 10^3/uL (0.0-0.6); ABSOLUTE LYMPHOCYTES (AUTO) 1.2 10^3/uL (0.5-4.7); ABSOLUTE MONOCYTES (AUTO) 1.1 10^3/uL (0.1-1.4); ABSOLUTE NEUT (AUTO) 8.2 10^3/uL (1.7-8.2); BASOPHILS % (AUTO) 1.1 % (0-2); HEMATOCRIT 32.3 % (36.0-47.0); HEMOGLOBIN 11.1 g/dL (12.0-15.5); LYMPHOCYTES % (AUTO) 11.3 % (13-45); MEAN CORPUSCULAR HEMOGLOBIN 28.7 pg (27.0-33.4); MEAN CORPUSCULAR HGB CONC 34.3 g/dL (32.0-36.0); MEAN CORPUSCULAR VOLUME 84 fl (80-97); MONOCYTES % (AUTO) 9.7 % (3-13); RED BLOOD COUNT 3.85 10^6/uL (3.72-5.28); RED CELL DISTRIBUTION WIDTH 13.5 % (11.5-14.0); SEGMENTED NEUTROPHILS % (AUTO) 74.9 % (42-78); WHITE BLOOD COUNT 10.9 10^3/uL (4.0-10.5)
[2017-01-04] MEDS: FUROSEMIDE INJ/PF 20 MG/2 ML SDV IV SCH ×2 (06:13→17:00)
[2017-01-04] MEDS: AMLODIPINE BESYLATE 5 MG TABLET PO SCH (10:25)
[2017-01-04] MEDS: METOPROLOL TARTRATE 25 MG TABLET PO SCH ×2 (10:25→21:18)
[2017-01-04] MEDS: ASPIRIN 81 MG TABLET, CHEWABLE PO SCH (10:25)
[2017-01-04] MEDS: FLUTICASONE NASAL SPRAY 50 MCG/SPRY 120 SPRAY/16 GM NASL SCH ×2 (10:26→21:26)
[2017-01-04] MEDS: ENALAPRIL MALEATE 10 MG TABLET NG SCH (10:26)
--- NOTE | 2017-01-04 13:22 | PDOC PROGRESS REPORT ---
Subjective Progress Note for:: 01/04/17 Subjective:: Continues to improve Physical Exam Vital Signs: Temp Pulse Resp BP Pulse Ox 98.2 F 85 18 124/83 97 01/04/17 11:16 01/04/17 11:16 01/04/17 11:16 01/04/17 11:16 01/04/17 11:16 Intake & Output 01/03/17 01/04/17 01/05/17 06:59 06:59 06:59 Intake Total 1952 934 436 Output Total 5490 874 Balance -3538 60 436 Weight 76 kg 76.1 kg General appearance: PRESENT: no acute distress, disheveled, well-developed, well -nourished Head exam: PRESENT: atraumatic, normocephalic Eye exam: PRESENT: conjunctiva pale, EOMI Mouth exam: PRESENT: dry mucosa, neck supple Neck exam: ABSENT: carotid bruit, JVD, lymphadenopathy, thyromegaly Respiratory exam: PRESENT: decreased breath sounds, prolonged expiratory phas, rhonchi, symmetrical, unlabored Cardiovascular exam: PRESENT: RRR, +S1, +S2 Pulses: PRESENT: normal radial pulses GI/Abdominal exam: PRESENT: normal bowel sounds, soft. ABSENT: distended, guarding, mass, organolmegaly, rebound, tenderness Rectal exam: PRESENT: deferred Musculoskeletal exam: PRESENT: normal inspection Neurological exam: PRESENT: alert, awake Skin exam: PRESENT: dry, warm Results Laboratory Results: 01/04/17 04:51 01/03/17 05:52 01/04/17 04:51 WBC 10.9 H RBC 3.85 Hgb 11.1 L Hct 32.3 L MCV 84 MCH 28.7 MCHC 34.3 RDW 13.5 Plt Count 605 H Seg Neutrophils % 74.9 Lymphocytes % 11.3 L Monocytes % 9.7 Eosinophils % 3.0 Basophils % 1.1 Absolute Neutrophils 8.2 Absolute Lymphocytes 1.2 Absolute Monocytes 1.1 Absolute Eosinophils 0.3 Absolute Basophils 0.1 12/25/16 14:49 Troponin I < 0.012 Impressions: Acute Abdomen Series 12/22/16 19:25 IMPRESSION: NO RADIOGRAPHIC EVIDENCE FOR ACUTE ABDOMINAL DISEASE.Nonobstructive pattern. Lung Scan-VQ NM 12/23/16 00:00 IMPRESSION: NORMAL VENTILATION-PERFUSION LUNG SCAN. NEGATIVE FOR PULMONARY EMBOLI. Abdomen/Pelvis CT 12/23/16 14:35 IMPRESSION: 1. Increasing free fluid within the abdomen surrounding the liver , in the lesser sac and in the pelvis. There is no air to suggest abscess. 2. Right lower lobe pneumonia. Hepatobiliary Scan Nuclear Medicine 12/24/16 00:00 IMPRESSION: Contained bile leak in the surgical bed. KUB X-Ray 12/25/16 10:38 IMPRESSION: Post bile leak repair. Right subphrenic and right gallbladder fossa surgical drains are in place. Nonobstructive bowel gas pattern. Nasogastric tube, Hill catheter in good positioning Endo Retro Cholangiopancreatogram 12/29/16 00:00 IMPRESSION: INTRA PROCEDURAL IMAGING ABOVE . Chest X-Ray 01/02/17 06:00 IMPRESSION: Similar appearance of bilateral basilar atelectasis -pleural effusions. Right subclavian central venous catheter tip overlies the mid portion of the right atrium, similar to the prior study. Assessment & Plan - Diagnosis (1) Postoperative bile leak Is this a current diagnosis for this admission?: YesPlan: Stable (2) Tobacco dependency Is this a current diagnosis for this admission?: YesPlan: transdermal patch (3) Pneumonia Qualifiers: Laterality: right Lung location: lower lobe of lung Is this a current diagnosis for this admission?: YesPlan: WBC 10,900 with no left shift ABG excellent on 40% FiO2 (4) Respiratory failure Is this a current diagnosis for this admission?: Yes
--- NOTE | 2017-01-04 13:45 | PDOC PROGRESS REPORT ---
Subjective Progress Note for:: 01/04/17 Subjective:: Patient is seen on morning rounds. Patient is sitting out of bed in bedside chair. She denies any shortness of breath, dyspnea or chest pain. She denies any nausea, abdominal pain or diarrhea. She is now tolerating a regular diet with nausea or abdominal pain. She has not walked with physical therapy as of yet. She denies any arthralgias or myalgias. She denies any fevers or chills. Respiratory review of systems are negative. Physical Exam Vital Signs: Temp Pulse Resp BP Pulse Ox 98.2 F 85 18 124/83 97 01/04/17 11:16 01/04/17 11:16 01/04/17 11:16 01/04/17 11:16 01/04/17 11:16 Intake & Output 01/03/17 01/04/17 01/05/17 06:59 06:59 06:59 Intake Total 1952 934 436 Output Total 5490 874 Balance -3538 60 436 Weight 76 kg 76.1 kg General appearance: PRESENT: no acute distress, well-developed, well-nourished Head exam: PRESENT: atraumatic, normocephalic Eye exam: PRESENT: conjunctiva pink, EOMI, PERRLA. ABSENT: scleral icterus Ear exam: PRESENT: normal external ear exam Mouth exam: PRESENT: moist, tongue midline Neck exam: ABSENT: carotid bruit, JVD, lymphadenopathy, thyromegaly Respiratory exam: PRESENT: clear to auscultation dun[place]. ABSENT: rales, rhonchi, wheezes Cardiovascular exam: PRESENT: RRR. ABSENT: diastolic murmur, rubs, systolic murmur Vascular exam: PRESENT: normal capillary refill GI/Abdominal exam: PRESENT: normal bowel sounds, soft. ABSENT: distended, guarding, mass, organolmegaly, rebound, tenderness Rectal exam: PRESENT: deferred Extremities exam: PRESENT: full ROM. ABSENT: calf tenderness, clubbing, pedal edema Musculoskeletal exam: PRESENT: ambulatory, normal inspection Neurological exam: PRESENT: alert, awake, oriented to person, oriented to place , oriented to time, oriented to situation, CN II-XII grossly intact. ABSENT: motor sensory deficit Psychiatric exam: PRESENT: appropriate affect, normal mood. ABSENT: homicidal ideation, suicidal ideation Skin exam: PRESENT: dry, intact, warm. ABSENT: cyanosis, rash Results Laboratory Results: 01/04/17 04:51 01/03/17 05:52 01/04/17 04:51 WBC 10.9 H RBC 3.85 Hgb 11.1 L Hct 32.3 L MCV 84 MCH 28.7 MCHC 34.3 RDW 13.5 Plt Count 605 H Seg Neutrophils % 74.9 Lymphocytes % 11.3 L Monocytes % 9.7 Eosinophils % 3.0 Basophils % 1.1 Absolute Neutrophils 8.2 Absolute Lymphocytes 1.2 Absolute Monocytes 1.1 Absolute Eosinophils 0.3 Absolute Basophils 0.1 12/25/16 14:49 Troponin I < 0.012 Impressions: Acute Abdomen Series 12/22/16 19:25 IMPRESSION: NO RADIOGRAPHIC EVIDENCE FOR ACUTE ABDOMINAL DISEASE.Nonobstructive pattern. Lung Scan-VQ NM 12/23/16 00:00 IMPRESSION: NORMAL VENTILATION-PERFUSION LUNG SCAN. NEGATIVE FOR PULMONARY EMBOLI. Abdomen/Pelvis CT 12/23/16 14:35 IMPRESSION: 1. Increasing free fluid within the abdomen surrounding the liver , in the lesser sac and in the pelvis. There is no air to suggest abscess. 2. Right lower lobe pneumonia. Hepatobiliary Scan Nuclear Medicine 12/24/16 00:00 IMPRESSION: Contained bile leak in the surgical bed. KUB X-Ray 12/25/16 10:38 IMPRESSION: Post bile leak repair. Right subphrenic and right gallbladder fossa surgical drains are in place. Nonobstructive bowel gas pattern. Nasogastric tube, Hill catheter in good positioning Endo Retro Cholangiopancreatogram 12/29/16 00:00 IMPRESSION: INTRA PROCEDURAL IMAGING ABOVE . Chest X-Ray 01/02/17 06:00 IMPRESSION: Similar appearance of bilateral basilar atelectasis -pleural effusions. Right subclavian central venous catheter tip overlies the mid portion of the right atrium, similar to the prior study. Assessment & Plan - Diagnosis (1) Biliary anastomotic leak Is this a current diagnosis for this admission?: YesPlan: Management per GI and surgery. She she is tolerating regular diet (2) Postoperative bile leak Is this a current diagnosis for this admission?: YesPlan: Biliary stent placement. [address] (3) Pneumonia Qualifiers: Laterality: right Lung location: lower lobe of lung Is this a current diagnosis for this admission?: YesPlan: Improving. Completed antibiotic coverage (4) Hypotension (arterial) Qualifiers: Hypotension type: unspecified hypotension type Qualified Code(s): I95.9 - Hypotension, unspecified Is this a current diagnosis for this admission?: YesPlan: Resolved (5) Septic shock Is this a current diagnosis for this admission?: YesPlan: Resolved (6) Coronary artery disease Qualifiers: Coronary Disease-Associated Artery/Lesion type: [place] artery [place] vs. transplanted heart: [place] heart Associated angina: without angina Qualified Code(s): I25.10 - Atherosclerotic heart disease of [place] coronary artery without angina pectoris Is this a current diagnosis for this admission?: YesPlan: Technique current medications (7) Diastolic CHF Qualifiers: Congestive heart failure chronicity: chronic Qualified Code(s): I50.32 - Chronic diastolic (congestive) heart failure Is this a current diagnosis for this admission?: YesPlan: Presently she appears euvolemic. Will continue current medications (8) Hypertension Qualifiers: Hypertension type: essential hypertension Qualified Code(s): I10 - Essential (primary) hypertension Is this a current diagnosis for this admission?: YesPlan: Presently normotensive off medications - Time Time Spent with patient: 25-34 minutes Critical Time spent with patient: 15-24 minutes Medications reviewed and adjusted accordingly: Yes Anticipated discharge: Home
[2017-01-04] MEDS: ATORVASTATIN CALCIUM 40 MG TABLET PO SCH (21:18)
[2017-01-05] MEDS: IPRATROPIUM/ALBUTEROL 0.5-2.5 MG/3 ML AMPUL NEB SCH ×4 (02:31→20:02)
[2017-01-05] MEDS: FUROSEMIDE INJ/PF 20 MG/2 ML SDV IV SCH ×2 (05:36→18:01)
[2017-01-05] MEDS: AMLODIPINE BESYLATE 5 MG TABLET PO SCH (09:49)
[2017-01-05] MEDS: ASPIRIN 81 MG TABLET, CHEWABLE PO SCH (09:49)
[2017-01-05] MEDS: ENALAPRIL MALEATE 10 MG TABLET NG SCH (09:50)
[2017-01-05] MEDS: METOPROLOL TARTRATE 25 MG TABLET PO SCH ×2 (09:50→21:42)
[2017-01-05] MEDS: FLUTICASONE NASAL SPRAY 50 MCG/SPRY 120 SPRAY/16 GM NASL SCH ×2 (09:50→21:54)
--- NOTE | 2017-01-05 09:58 | PROGRESS NOTE E ---
Progress Note NAME: DIANE SALINAS : 1955 AGE: 61Y DATE: 01/05/2017 ROOM: 326 SUBJECTIVE: The patient had laparoscopic cholecystectomy, having a postoperative bile leak. She underwent exploratory laparotomy and reclipping of the cystic duct with drainage of the bile peritonitis. She is approximately a week out from that. She about 4 days ago underwent an ERCP with sphincterotomy and stent placement. Patient denies any complaints at this time or any abdominal pain with not needing any pain medication. OBJECTIVE: The patient's abdominal incision is clean. She has light yellowish to greenish material all through her KELLIE drain. KELLIE drain output: 70 in 12. VITAL SIGNS: Temperature is 99, pulse 81, blood pressure 130/80. DIAGNOSTIC DATA: White blood cell count 10.9. ASSESSMENT: HISTORY OF LAPAROSCOPIC CHOLECYSTECTOMY WITH RE-EXPLORATION AND RECLIPPING OF THE CYSTIC DUCT. SHE HAD LEAKAGE OF BILE ON FOLLOW-UP STUDY FROM THE GALLBLADDER BED, MOST LIKELY A SUBVESICULAR BILE LEAK. She underwent ERCP with sphincterotomy and stent placement. She has had decreasing output through her KELLIE drain. She does have a mildly elevated white blood cell count and this will need to be followed. If she continues to have a white count then I would recommend a CT scan of the abdomen and pelvis to make sure that there is not any undrained fluid that is collecting. At some point obtaining a follow-up hepatobiliary scan to see if there continues to be a leak or not will help guide the KELLIE drain management when they should be removed. PLAN: 1. Follow-up CBC and liver function tests. 2. Continue drains. 3. Hepatobiliary scan in the near future to evaluate if the bile is still draining from the liver bed or not. DICTATING PHYSICIAN: JULIAN IVY M.D. [id number] PHY#: [id number] ID: [id number] JOB#: [id number] ACCT: [id number] cc: >
--- NOTE | 2017-01-05 14:15 | PDOC PROGRESS REPORT ---
Subjective Progress Note for:: 01/05/17 Subjective:: The patient was seen earlier today on rounds. The patient denies any nausea, vomiting, diarrhea, shortness of breath, dizziness, chest pain, heart palpitations, fevers, or chills. In comparison to my last visit with the patient she is much improved. The patient has remained afebrile. Blood pressures have been in a good range. When prompted the patient voices no other concerns at this time. Review of systems: The rest of the review of systems is negative. Physical Exam Vital Signs: Temp Pulse Resp BP Pulse Ox 98.7 F 76 18 126/80 H 92 01/05/17 11:54 01/05/17 11:54 01/05/17 11:54 01/05/17 11:54 01/05/17 11:54 Intake & Output 01/03/17 01/04/17 01/05/17 23:59 23:59 23:59 Intake Total 1634 1043 517 Output Total 1784 715 20 Balance -150 328 497 Weight 76 kg 76.1 kg 72.4 kg General appearance: PRESENT: no acute distress, cooperative, well-developed, well-nourished Head exam: PRESENT: atraumatic, normocephalic Eye exam: PRESENT: conjunctiva pink, EOMI, PERRLA. ABSENT: scleral icterus Ear exam: PRESENT: normal external ear exam Mouth exam: PRESENT: moist, tongue midline Neck exam: ABSENT: carotid bruit, JVD, lymphadenopathy, thyromegaly Respiratory exam: PRESENT: clear to auscultation duncan, symmetrical, unlabored. ABSENT: rales, rhonchi, tachypnea, wheezes Cardiovascular exam: PRESENT: RRR. ABSENT: diastolic murmur, rubs, systolic murmur Pulses: PRESENT: normal dorsalis pedis pul Vascular exam: PRESENT: normal capillary refill GI/Abdominal exam: PRESENT: normal bowel sounds, soft. ABSENT: distended, guarding, mass, organolmegaly, rebound, tenderness Rectal exam: PRESENT: deferred Extremities exam: PRESENT: full ROM. ABSENT: calf tenderness, clubbing, pedal edema Neurological exam: PRESENT: alert, awake, oriented to person, oriented to place , oriented to time, oriented to situation, CN II-XII grossly intact. ABSENT: motor sensory deficit Psychiatric exam: PRESENT: appropriate affect, normal mood. ABSENT: homicidal ideation, suicidal ideation Skin exam: PRESENT: dry, intact, warm. ABSENT: cyanosis, rash Results Laboratory Results: 01/04/17 04:51 01/03/17 05:52 01/01/17 16:00 Stool - Stool Clostridium difficile Toxin A&B (M) - Final 12/25/16 14:49 Troponin I < 0.012 Impressions: Acute Abdomen Series 12/22/16 19:25 IMPRESSION: NO RADIOGRAPHIC EVIDENCE FOR ACUTE ABDOMINAL DISEASE.Nonobstructive pattern. Lung Scan-VQ NM 12/23/16 00:00 IMPRESSION: NORMAL VENTILATION-PERFUSION LUNG SCAN. NEGATIVE FOR PULMONARY EMBOLI. Abdomen/Pelvis CT 12/23/16 14:35 IMPRESSION: 1. Increasing free fluid within the abdomen surrounding the liver , in the lesser sac and in the pelvis. There is no air to suggest abscess. 2. Right lower lobe pneumonia. Hepatobiliary Scan Nuclear Medicine 12/24/16 00:00 IMPRESSION: Contained bile leak in the surgical bed. KUB X-Ray 12/25/16 10:38 IMPRESSION: Post bile leak repair. Right subphrenic and right gallbladder fossa surgical drains are in place. Nonobstructive bowel gas pattern. Nasogastric tube, Hill catheter in good positioning Endo Retro Cholangiopancreatogram 12/29/16 00:00 IMPRESSION: INTRA PROCEDURAL IMAGING ABOVE . Chest X-Ray 01/02/17 06:00 IMPRESSION: Similar appearance of bilateral basilar atelectasis -pleural effusions. Right subclavian central venous catheter tip overlies the mid portion of the right atrium, similar to the prior study. Assessment & Plan - Diagnosis (1) Postoperative bile leak Is this a current diagnosis for this admission?: YesPlan: Management as per surgery and GI. The patient is tolerating regular diet. (2) Biliary anastomotic leak Is this a current diagnosis for this admission?: YesPlan: Biliary stent placement. (3) Status post cholecystectomy Is this a current diagnosis for this admission?: Yes (4) Pneumonia Qualifiers: Laterality: right Lung location: lower lobe of lung Is this a current diagnosis for this admission?: YesPlan: Much improved. Have completed antibiotic coverage. (5) Septic shock Is this a current diagnosis for this admission?: YesPlan: Resolved (6) Coronary artery disease Qualifiers: Coronary Disease-Associated Artery/Lesion type: [place] artery [place] vs. transplanted heart: [place] heart Associated angina: without angina Qualified Code(s): I25.10 - Atherosclerotic heart disease of [place] coronary artery without angina pectoris Is this a current diagnosis for this admission?: YesPlan: Will continue home medications. (7) Chronic diastolic (congestive) heart failure Is this a current diagnosis for this admission?: YesPlan: The patient is optivolemic. (8) Hypertension Qualifiers: Hypertension type: essential hypertension Qualified Code(s): I10 - Essential (primary) hypertension Is this a current diagnosis for this admission?: YesPlan: Continue home meds. (9) Tobacco dependency Is this a current diagnosis for this admission?: YesPlan: continue PRN nicotine patch. - Time Time Spent with patient: 25-34 minutes Medications reviewed and adjusted accordingly: Yes Anticipated discharge: Home Within: Other - As per surgery recommendations
[2017-01-05 14:17] LABS: ABSOLUTE BASOPHILS # (AUTO) 0.1 10^3/uL (0.0-0.2); ABSOLUTE EOSINOPHILS # (AUTO) 0.3 10^3/uL (0.0-0.6); ABSOLUTE LYMPHOCYTES (AUTO) 1.1 10^3/uL (0.5-4.7); ABSOLUTE MONOCYTES (AUTO) 0.8 10^3/uL (0.1-1.4); ABSOLUTE NEUT (AUTO) 6.9 10^3/uL (1.7-8.2); BASOPHILS % (AUTO) 0.8 % (0-2); EOSINOPHILS % (AUTO) 3.2 % (0-6); HEMATOCRIT 33.1 % (36.0-47.0); HEMOGLOBIN 11.5 g/dL (12.0-15.5); HGB HCT DIFFERENCE 1.4; LYMPHOCYTES % (AUTO) 12.2 % (13-45); MEAN CORPUSCULAR HEMOGLOBIN 28.9 pg (27.0-33.4); MEAN CORPUSCULAR HGB CONC 34.8 g/dL (32.0-36.0); MEAN CORPUSCULAR VOLUME 83 fl (80-97); MONOCYTES % (AUTO) 9.1 % (3-13); RED BLOOD COUNT 3.98 10^6/uL (3.72-5.28); RED CELL DISTRIBUTION WIDTH 13.7 % (11.5-14.0); SEGMENTED NEUTROPHILS % (AUTO) 74.7 % (42-78); WHITE BLOOD COUNT 9.2 10^3/uL (4.0-10.5)
[2017-01-05 14:34] LABS: ALANINE AMINOTRANSFERASE 65 U/L (9-52); ALBUMIN 3.1 g/dL (3.5-5.0); ALKALINE PHOSPHATASE 79 U/L (38-126); ANION GAP 11 (5-19); ASPARTATE AMINO TRANSFERASE 39 U/L (14-36); BILIRUBIN,DIRECT 0.4 mg/dL (0.0-0.4); BILIRUBIN,TOTAL 0.8 mg/dL (0.2-1.3); BLOOD UREA NITROGEN 10 mg/dL (7-20); CALCIUM 9.3 mg/dL (8.4-10.2); CARBON DIOXIDE 32 mmol/L (22-30); CHLORIDE 99 mmol/L (98-107); CREATININE RESULT 0.63 mg/dL (0.52-1.25); GLUCOSE 126 mg/dL (75-110); SODIUM 141.5 mmol/L (137-145); TOTAL PROTEIN 6.1 g/dL (6.3-8.2)
[2017-01-05] MEDS: POTASSI CL 20 MEQ/50 ML RIDER 50 ML IV SCH ×2 (15:50→18:04)
--- NOTE | 2017-01-05 20:28 | PDOC PROGRESS REPORT ---
Subjective Progress Note for:: 01/05/17 Subjective:: Continues to improve Physical Exam Vital Signs: Temp Pulse Resp BP Pulse Ox 98.4 F 85 18 119/79 94 01/05/17 16:32 01/05/17 16:32 01/05/17 16:32 01/05/17 16:32 01/05/17 16:32 Intake & Output 01/04/17 01/05/17 01/06/17 06:59 06:59 06:59 Intake Total 796 360 0192 Output Total 874 45 10 Balance 60 913 1268 Weight 76.1 kg 72.4 kg General appearance: PRESENT: no acute distress, disheveled Head exam: PRESENT: atraumatic Eye exam: PRESENT: conjunctiva pale, EOMI Mouth exam: PRESENT: moist, neck supple Neck exam: ABSENT: carotid bruit, JVD, lymphadenopathy, thyromegaly Respiratory exam: PRESENT: decreased breath sounds, prolonged expiratory phas Cardiovascular exam: PRESENT: RRR, +S1, +S2 Pulses: PRESENT: normal radial pulses GI/Abdominal exam: PRESENT: normal bowel sounds, soft. ABSENT: distended, guarding, mass, organolmegaly, rebound, tenderness Rectal exam: PRESENT: deferred Musculoskeletal exam: PRESENT: normal inspection Neurological exam: PRESENT: alert, awake Psychiatric exam: PRESENT: normal mood Skin exam: PRESENT: dry, warm Results Laboratory Results: 01/05/17 13:40 01/05/17 13:40 01/05/17 01/05/17 13:40 13:40 WBC 9.2 RBC 3.98 Hgb 11.5 L Hct 33.1 L MCV 83 MCH 28.9 MCHC 34.8 RDW 13.7 Plt Count 671 H Seg Neutrophils % 74.7 Lymphocytes % 12.2 L Monocytes % 9.1 Eosinophils % 3.2 Basophils % 0.8 Absolute Neutrophils 6.9 Absolute Lymphocytes 1.1 Absolute Monocytes 0.8 Absolute Eosinophils 0.3 Absolute Basophils 0.1 Sodium 141.5 Potassium 3.0 L* Chloride 99 Carbon Dioxide 32 H Anion Gap 11 BUN 10 Creatinine 0.63 Est GFR ( Amer) > 60 Est GFR (Non-Af Amer) > 60 Glucose 126 H Calcium 9.3 Total Bilirubin 0.8 AST 39 H ALT 65 H Alkaline Phosphatase 79 Total Protein 6.1 L Albumin 3.1 L 01/01/17 16:00 Stool - Stool Clostridium difficile Toxin A&B (M) - Final 12/25/16 14:49 Troponin I < 0.012 Impressions: Acute Abdomen Series 12/22/16 19:25 IMPRESSION: NO RADIOGRAPHIC EVIDENCE FOR ACUTE ABDOMINAL DISEASE.Nonobstructive pattern. Lung Scan-VQ NM 12/23/16 00:00 IMPRESSION: NORMAL VENTILATION-PERFUSION LUNG SCAN. NEGATIVE FOR PULMONARY EMBOLI. Abdomen/Pelvis CT 12/23/16 14:35 IMPRESSION: 1. Increasing free fluid within the abdomen surrounding the liver , in the lesser sac and in the pelvis. There is no air to suggest abscess. 2. Right lower lobe pneumonia. Hepatobiliary Scan Nuclear Medicine 12/24/16 00:00 IMPRESSION: Contained bile leak in the surgical bed. KUB X-Ray 12/25/16 10:38 IMPRESSION: Post bile leak repair. Right subphrenic and right gallbladder fossa surgical drains are in place. Nonobstructive bowel gas pattern. Nasogastric tube, Hill catheter in good positioning Endo Retro Cholangiopancreatogram 12/29/16 00:00 IMPRESSION: INTRA PROCEDURAL IMAGING ABOVE . Chest X-Ray 01/02/17 06:00 IMPRESSION: Similar appearance of bilateral basilar atelectasis -pleural effusions. Right subclavian central venous catheter tip overlies the mid portion of the right atrium, similar to the prior study. Assessment & Plan - Diagnosis (1) Postoperative bile leak Is this a current diagnosis for this admission?: Yes (2) Tobacco dependency Is this a current diagnosis for this admission?: Yes (3) Pneumonia Qualifiers: Laterality: right Lung location: lower lobe of lung Is this a current diagnosis for this admission?: Yes (4) Respiratory failure Is this a current diagnosis for this admission?: YesPlan: resolved
[2017-01-05] MEDS: ATORVASTATIN CALCIUM 40 MG TABLET PO SCH (21:42)
[2017-01-06] MEDS: IPRATROPIUM/ALBUTEROL 0.5-2.5 MG/3 ML AMPUL NEB SCH ×2 (02:42→08:38)
[2017-01-06] MEDS: FUROSEMIDE INJ/PF 20 MG/2 ML SDV IV SCH (06:36)
[2017-01-06 07:03] LABS: ABSOLUTE BASOPHILS # (AUTO) 0.1 10^3/uL (0.0-0.2); ABSOLUTE EOSINOPHILS # (AUTO) 0.4 10^3/uL (0.0-0.6); ABSOLUTE LYMPHOCYTES (AUTO) 0.9 10^3/uL (0.5-4.7); ABSOLUTE MONOCYTES (AUTO) 0.8 10^3/uL (0.1-1.4); ABSOLUTE NEUT (AUTO) 4.8 10^3/uL (1.7-8.2); BASOPHILS % (AUTO) 1.1 % (0-2); EOSINOPHILS % (AUTO) 5.1 % (0-6); HEMATOCRIT 32.7 % (36.0-47.0); HEMOGLOBIN 11.4 g/dL (12.0-15.5); HGB HCT DIFFERENCE 1.5; LYMPHOCYTES % (AUTO) 13.6 % (13-45); MEAN CORPUSCULAR HEMOGLOBIN 29.1 pg (27.0-33.4); MEAN CORPUSCULAR HGB CONC 34.7 g/dL (32.0-36.0); MEAN CORPUSCULAR VOLUME 84 fl (80-97); RED CELL DISTRIBUTION WIDTH 13.9 % (11.5-14.0); SEGMENTED NEUTROPHILS % (AUTO) 69.2 % (42-78)
[2017-01-06 07:13] LABS: ALANINE AMINOTRANSFERASE 57 U/L (9-52); ALKALINE PHOSPHATASE 67 U/L (38-126); ANION GAP 12 (5-19); ASPARTATE AMINO TRANSFERASE 39 U/L (14-36); BILIRUBIN,DIRECT 0.2 mg/dL (0.0-0.4); BILIRUBIN,TOTAL 0.6 mg/dL (0.2-1.3); BLOOD UREA NITROGEN 9 mg/dL (7-20); CALCIUM 9.1 mg/dL (8.4-10.2); CARBON DIOXIDE 30 mmol/L (22-30); CHLORIDE 100 mmol/L (98-107); GLUCOSE 107 mg/dL (75-110); POTASSIUM 3.3 mmol/L (3.6-5.0); SODIUM 141.7 mmol/L (137-145); TOTAL PROTEIN 5.6 g/dL (6.3-8.2)
[2017-01-06] MEDS ORDERED: ALBUTEROL SULFATE 0.083% NEB 2.5 MG/3 ML AMPUL NEB PRN (08:54)
[2017-01-06] MEDS ORDERED: TRAMADOL HCL 50 MG TABLET PO PRN (08:55)
[2017-01-06] MEDS ORDERED: LORAZEPAM 1 MG TABLET PO PRN (08:55)
[2017-01-06] MEDS: METOPROLOL TARTRATE 25 MG TABLET PO SCH ×2 (10:11→21:31)
[2017-01-06] MEDS: POTASSI CL 20 MEQ/50 ML RIDER 20 MEQ/50 ML RTUPB IV SCH ×2 (10:11→12:40)
[2017-01-06] MEDS: AMLODIPINE BESYLATE 5 MG TABLET PO SCH (10:11)
[2017-01-06] MEDS: FLUTICASONE NASAL SPRAY 50 MCG/SPRY 120 SPRAY/16 GM NASL SCH ×2 (10:12→21:33)
[2017-01-06] MEDS: ENALAPRIL MALEATE 10 MG TABLET NG SCH (10:12)
[2017-01-06] MEDS: ASPIRIN 81 MG TABLET, CHEWABLE PO SCH (10:12)
--- NOTE | 2017-01-06 10:27 | PDOC PROGRESS REPORT ---
Subjective Progress Note for:: 01/06/17 Subjective:: The patient was seen earlier today on rounds. The patient was out of bed to the bathroom with a walker. She denies any abdominal pain. The patient denies any nausea, vomiting, diarrhea, shortness of breath, dizziness, chest pain, heart palpitations, fevers, or chills. The patient overall feels much more improved. The patient has remained afebrile. Blood pressures have been in a good range. When prompted the patient voices no other concerns at this time. Review of systems: The rest of the review of systems is negative. Physical Exam Vital Signs: Temp Pulse Resp BP Pulse Ox 98.5 F 77 18 117/79 93 01/06/17 07:03 01/06/17 07:03 01/06/17 07:03 01/06/17 07:03 01/06/17 07:03 Intake & Output 01/04/17 01/05/17 01/06/17 23:59 23:59 23:59 Intake Total 1043 1473 617 Output Total 479 64 1268 Balance 328 1443 -493 Weight 76.1 kg 72.4 kg 75 kg General appearance: PRESENT: no acute distress, cooperative, well-developed, well-nourished Head exam: PRESENT: atraumatic, normocephalic Eye exam: PRESENT: conjunctiva pink, EOMI, PERRLA. ABSENT: scleral icterus Ear exam: PRESENT: normal external ear exam Mouth exam: PRESENT: moist, tongue midline Neck exam: ABSENT: carotid bruit, JVD, lymphadenopathy, thyromegaly Respiratory exam: PRESENT: clear to auscultation duncan, symmetrical, unlabored. ABSENT: rales, rhonchi, tachypnea, wheezes Cardiovascular exam: PRESENT: RRR. ABSENT: diastolic murmur, rubs, systolic murmur Pulses: PRESENT: normal dorsalis pedis pul Vascular exam: PRESENT: normal capillary refill GI/Abdominal exam: PRESENT: normal bowel sounds, soft. ABSENT: distended, guarding, mass, organolmegaly, rebound, tenderness Rectal exam: PRESENT: deferred Extremities exam: PRESENT: full ROM. ABSENT: calf tenderness, clubbing, pedal edema Neurological exam: PRESENT: alert, awake, oriented to person, oriented to place , oriented to time, oriented to situation, CN II-XII grossly intact. ABSENT: motor sensory deficit Psychiatric exam: PRESENT: appropriate affect, normal mood. ABSENT: homicidal ideation, suicidal ideation Skin exam: PRESENT: dry, intact, warm. ABSENT: cyanosis, rash Results Laboratory Results: 01/06/17 06:40 01/06/17 06:40 01/05/17 01/05/17 01/06/17 13:40 13:40 06:40 WBC 9.2 7.0 RBC 3.98 3.90 Hgb 11.5 L 11.4 L Hct 33.1 L 32.7 L MCV 83 84 MCH 28.9 29.1 MCHC 34.8 34.7 RDW 13.7 13.9 Plt Count 671 H 645 H Seg Neutrophils % 74.7 69.2 Lymphocytes % 12.2 L 13.6 Monocytes % 9.1 11.0 Eosinophils % 3.2 5.1 Basophils % 0.8 1.1 Absolute Neutrophils 6.9 4.8 Absolute Lymphocytes 1.1 0.9 Absolute Monocytes 0.8 0.8 Absolute Eosinophils 0.3 0.4 Absolute Basophils 0.1 0.1 Sodium 141.5 Potassium 3.0 L* Chloride 99 Carbon Dioxide 32 H Anion Gap 11 BUN 10 Creatinine 0.63 Est GFR ( Amer) > 60 Est GFR (Non-Af Amer) > 60 Glucose 126 H Calcium 9.3 Total Bilirubin 0.8 AST 39 H ALT 65 H Alkaline Phosphatase 79 Total Protein 6.1 L Albumin 3.1 L 01/06/17 06:40 WBC RBC Hgb Hct MCV MCH MCHC RDW Plt Count Seg Neutrophils % Lymphocytes % Monocytes % Eosinophils % Basophils % Absolute Neutrophils Absolute Lymphocytes Absolute Monocytes Absolute Eosinophils Absolute Basophils Sodium 141.7 Potassium 3.3 L Chloride 100 Carbon Dioxide 30 Anion Gap 12 BUN 9 Creatinine 0.60 Est GFR ( Amer) > 60 Est GFR (Non-Af Amer) > 60 Glucose 107 Calcium 9.1 Total Bilirubin 0.6 AST 39 H ALT 57 H Alkaline Phosphatase 67 Total Protein 5.6 L Albumin 3.0 L 12/25/16 14:49 Troponin I < 0.012 Impressions: Acute Abdomen Series 12/22/16 19:25 IMPRESSION: NO RADIOGRAPHIC EVIDENCE FOR ACUTE ABDOMINAL DISEASE.Nonobstructive pattern. Lung Scan-VQ NM 12/23/16 00:00 IMPRESSION: NORMAL VENTILATION-PERFUSION LUNG SCAN. NEGATIVE FOR PULMONARY EMBOLI. Abdomen/Pelvis CT 12/23/16 14:35 IMPRESSION: 1. Increasing free fluid within the abdomen surrounding the liver , in the lesser sac and in the pelvis. There is no air to suggest abscess. 2. Right lower lobe pneumonia. Hepatobiliary Scan Nuclear Medicine 12/24/16 00:00 IMPRESSION: Contained bile leak in the surgical bed. KUB X-Ray 12/25/16 10:38 IMPRESSION: Post bile leak repair. Right subphrenic and right gallbladder fossa surgical drains are in place. Nonobstructive bowel gas pattern. Nasogastric tube, Hill catheter in good positioning Endo Retro Cholangiopancreatogram 12/29/16 00:00 IMPRESSION: INTRA PROCEDURAL IMAGING ABOVE . Chest X-Ray 01/02/17 06:00 IMPRESSION: Similar appearance of bilateral basilar atelectasis -pleural effusions. Right subclavian central venous catheter tip overlies the mid portion of the right atrium, similar to the prior study. Assessment & Plan - Diagnosis (1) Postoperative bile leak Is this a current diagnosis for this admission?: YesPlan: Management as per surgery and GI. The patient is tolerating regular diet. (2) Biliary anastomotic leak Is this a current diagnosis for this admission?: YesPlan: Biliary stent placement. (3) Status post cholecystectomy Is this a current diagnosis for this admission?: YesPlan: The patient was noted to have a bile leak is status post operative repair with drain. Management as per surgery. (4) Pneumonia Qualifiers: Laterality: right Lung location: lower lobe of lung Is this a current diagnosis for this admission?: YesPlan: Much improved. Have completed antibiotic coverage. (5) Septic shock Is this a current diagnosis for this admission?: YesPlan: Resolved (6) Coronary artery disease Qualifiers: Coronary Disease-Associated Artery/Lesion type: [place] artery [place] vs. transplanted heart: [place] heart Associated angina: without angina Qualified Code(s): I25.10 - Atherosclerotic heart disease of [place] coronary artery without angina pectoris Is this a current diagnosis for this admission?: YesPlan: Will continue home medications. (7) Chronic diastolic (congestive) heart failure Is this a current diagnosis for this admission?: YesPlan: The patient is optivolemic. (8) Hypertension Qualifiers: Hypertension type: essential hypertension Qualified Code(s): I10 - Essential (primary) hypertension Is this a current diagnosis for this admission?: YesPlan: Continue home meds. (9) Tobacco dependency Is this a current diagnosis for this admission?: YesPlan: continue PRN nicotine patch. - Time Time Spent with patient: 25-34 minutes Medications reviewed and adjusted accordingly: Yes Anticipated discharge: Home Within: Other - Once discharged by surgery
--- NOTE | 2017-01-06 14:56 | PDOC PROGRESS REPORT ---
Subjective Progress Note for:: 01/06/17 Subjective:: Continues to improve complains of some epigastric pain after eating Physical Exam Vital Signs: Temp Pulse Resp BP Pulse Ox 98.6 F 92 20 122/83 93 01/06/17 03:53 01/06/17 03:53 01/06/17 03:53 01/06/17 03:53 01/06/17 03:53 Intake & Output 01/05/17 01/06/17 01/07/17 06:59 06:59 06:59 Intake Total 958 1895 Output Total 45 1120 Balance 913 775 Weight 72.4 kg 75 kg General appearance: PRESENT: no acute distress, cooperative, disheveled, thin, well-developed, well-nourished Head exam: PRESENT: normocephalic Eye exam: PRESENT: conjunctiva pale, EOMI Neck exam: ABSENT: carotid bruit, JVD, lymphadenopathy, thyromegaly Respiratory exam: PRESENT: decreased breath sounds, prolonged expiratory phas, rhonchi, symmetrical, unlabored Pulses: PRESENT: normal radial pulses GI/Abdominal exam: PRESENT: normal bowel sounds, soft, other - Status post surgery. ABSENT: distended, guarding, mass, organolmegaly, rebound, tenderness Rectal exam: PRESENT: deferred Musculoskeletal exam: PRESENT: normal inspection Neurological exam: PRESENT: alert, awake Psychiatric exam: PRESENT: normal mood Skin exam: PRESENT: dry, warm Results Laboratory Results: 01/06/17 06:40 01/06/17 06:40 01/05/17 01/05/17 01/06/17 13:40 13:40 06:40 WBC 9.2 7.0 RBC 3.98 3.90 Hgb 11.5 L 11.4 L Hct 33.1 L 32.7 L MCV 83 84 MCH 28.9 29.1 MCHC 34.8 34.7 RDW 13.7 13.9 Plt Count 671 H 645 H Seg Neutrophils % 74.7 69.2 Lymphocytes % 12.2 L 13.6 Monocytes % 9.1 11.0 Eosinophils % 3.2 5.1 Basophils % 0.8 1.1 Absolute Neutrophils 6.9 4.8 Absolute Lymphocytes 1.1 0.9 Absolute Monocytes 0.8 0.8 Absolute Eosinophils 0.3 0.4 Absolute Basophils 0.1 0.1 Sodium 141.5 Potassium 3.0 L* Chloride 99 Carbon Dioxide 32 H Anion Gap 11 BUN 10 Creatinine 0.63 Est GFR ( Amer) > 60 Est GFR (Non-Af Amer) > 60 Glucose 126 H Calcium 9.3 Total Bilirubin 0.8 AST 39 H ALT 65 H Alkaline Phosphatase 79 Total Protein 6.1 L Albumin 3.1 L 01/06/17 06:40 WBC RBC Hgb Hct MCV MCH MCHC RDW Plt Count Seg Neutrophils % Lymphocytes % Monocytes % Eosinophils % Basophils % Absolute Neutrophils Absolute Lymphocytes Absolute Monocytes Absolute Eosinophils Absolute Basophils Sodium 141.7 Potassium 3.3 L Chloride 100 Carbon Dioxide 30 Anion Gap 12 BUN 9 Creatinine 0.60 Est GFR ( Amer) > 60 Est GFR (Non-Af Amer) > 60 Glucose 107 Calcium 9.1 Total Bilirubin 0.6 AST 39 H ALT 57 H Alkaline Phosphatase 67 Total Protein 5.6 L Albumin 3.0 L 01/01/17 16:00 Stool - Stool Clostridium difficile Toxin A&B (M) - Final 12/25/16 14:49 Troponin I < 0.012 Impressions: Acute Abdomen Series 12/22/16 19:25 IMPRESSION: NO RADIOGRAPHIC EVIDENCE FOR ACUTE ABDOMINAL DISEASE.Nonobstructive pattern. Lung Scan-VQ NM 12/23/16 00:00 IMPRESSION: NORMAL VENTILATION-PERFUSION LUNG SCAN. NEGATIVE FOR PULMONARY EMBOLI. Abdomen/Pelvis CT 12/23/16 14:35 IMPRESSION: 1. Increasing free fluid within the abdomen surrounding the liver , in the lesser sac and in the pelvis. There is no air to suggest abscess. 2. Right lower lobe pneumonia. Hepatobiliary Scan Nuclear Medicine 12/24/16 00:00 IMPRESSION: Contained bile leak in the surgical bed. KUB X-Ray 12/25/16 10:38 IMPRESSION: Post bile leak repair. Right subphrenic and right gallbladder fossa surgical drains are in place. Nonobstructive bowel gas pattern. Nasogastric tube, Hill catheter in good positioning Endo Retro Cholangiopancreatogram 12/29/16 00:00 IMPRESSION: INTRA PROCEDURAL IMAGING ABOVE . Chest X-Ray 01/02/17 06:00 IMPRESSION: Similar appearance of bilateral basilar atelectasis -pleural effusions. Right subclavian central venous catheter tip overlies the mid portion of the right atrium, similar to the prior study. Assessment & Plan - Diagnosis (1) Postoperative bile leak Is this a current diagnosis for this admission?: Yes (2) Tobacco dependency Is this a current diagnosis for this admission?: Yes (3) Pneumonia Qualifiers: Laterality: right Lung location: lower lobe of lung Is this a current diagnosis for this admission?: Yes (4) Respiratory failure Is this a current diagnosis for this admission?: No
--- NOTE | 2017-01-06 20:53 | PROGRESS NOTE E ---
Progress Note NAME: DIANE SALINAS : 1955 AGE: 61Y DATE: 01/06/2017 ROOM: 326 The patient had undergone a laparoscopic cholecystectomy with a postoperative bile leak. She had exploratory laparotomy and re-clipping of the cystic duct. She then underwent an ERCP almost a week ago with sphincterotomy and stent placement, her J-P drain. SUBJECTIVE: No complaints of abdominal pain at this current time. OBJECTIVE: The patient's abdominal incision is clean without any evidence of infection. Her J-P drainage is yellowish in color. VITAL SIGNS: Temperature is 98.3. Pulse 77. Blood pressure 132/81. J-P drain #1 and #2 are 15 and 30 mL. ASSESSMENT: STATUS POST LAPAROSCOPIC CHOLECYSTECTOMY WITH BILE LEAK PROBABLY FROM SUBVESICULAR DUCTS, NOW STATUS POST ERCP AND STENT PLACEMENT. These usually seal up with this type of treatment. I would recommend continue the J-P drains until they decrease even further and hepatobiliary scan does not show any leak present from the liver or gallbladder bed. PLAN: We will set up the patient to be discharged home with home health in order to insure that she is taking care of the J-P drains properly. More than likely, she will need to have a hepatobiliary scan next week and then probable removal of the J-P drains. DICTATING PHYSICIAN: JULIAN IVY M.D. [id number] PHY#: [id number] ID: [id number] JOB#: [id number] ACCT: [id number] cc: >
[2017-01-06] MEDS: ATORVASTATIN CALCIUM 40 MG TABLET PO SCH (21:31)
[2017-01-07 05:54] LABS: HEMATOCRIT 31.4 % (36.0-47.0); HEMOGLOBIN 10.7 g/dL (12.0-15.5); HGB HCT DIFFERENCE 0.7; MEAN CORPUSCULAR HGB CONC 34.2 g/dL (32.0-36.0); MEAN CORPUSCULAR VOLUME 85 fl (80-97); RED CELL DISTRIBUTION WIDTH 14.1 % (11.5-14.0); WHITE BLOOD COUNT 5.4 10^3/uL (4.0-10.5)
[2017-01-07 06:10] LABS: ALANINE AMINOTRANSFERASE 54 U/L (9-52); ALBUMIN 2.9 g/dL (3.5-5.0); ALKALINE PHOSPHATASE 67 U/L (38-126); ANION GAP 12 (5-19); ASPARTATE AMINO TRANSFERASE 30 U/L (14-36); BILIRUBIN,DIRECT 0.3 mg/dL (0.0-0.4); BILIRUBIN,TOTAL 0.5 mg/dL (0.2-1.3); BLOOD UREA NITROGEN 10 mg/dL (7-20); CARBON DIOXIDE 28 mmol/L (22-30); CHLORIDE 103 mmol/L (98-107); CREATININE RESULT 0.66 mg/dL (0.52-1.25); GLUCOSE 101 mg/dL (75-110); MAGNESIUM 1.8 mg/dL (1.6-2.3); POTASSIUM 3.8 mmol/L (3.6-5.0); SODIUM 142.5 mmol/L (137-145); TOTAL PROTEIN 5.6 g/dL (6.3-8.2)
--- NOTE | 2017-01-07 09:08 | PROGRESS NOTE E ---
Progress Note NAME: DIANE SALINAS : 1955 AGE: 61Y DATE: 01/04/2017 ROOM: 326 CHIEF COMPLAINT: The patient underwent a laparoscopic cholecystectomy, having a postoperative bile leak. She underwent exploratory laparotomy, reclipping of the cystic duct with drainage of bile peritonitis. She is approximately 1 week from this. She had underwent ERCP with sphincterotomy and stent placement 3 days ago. SUBJECTIVE: The patient denies any complaints of abdominal pain at the current time. She is having bowel movements. OBJECTIVE: The patient's abdominal incision is clean without any evidence of infection. She has light yellowish drainage out through her KELLIE drains. KELLIE drain output is approximately 50 and 15 mL. ASSESSMENT: STATUS POST LAPAROSCOPIC CHOLECYSTECTOMY WITH POSTOPERATIVE BILE LEAK AND RE-EXPLORATION WITH DRAINAGE OF BILE PERITONITIS, STATUS POST ERCP PLACEMENT WITH STENTS. THE BILE LEAK HAS DIMINISHED SIGNIFICANTLY SINCE THE STENT PLACEMENT AND ERCP. I WOULD RECOMMEND CONTINUATION WITH THE DRAIN. PLAN: Continue following the drainage output. Once it has decreased significantly then consideration for hepatobiliary scan if there is continued leak from the gallbladder bed or not. DICTATING PHYSICIAN: JULIAN IVY M.D. [id number] PHY#: [id number] ID: [id number] JOB#: [id number] ACCT: [id number] cc: >
[2017-01-07] MEDS: ENALAPRIL MALEATE 10 MG TABLET NG SCH (10:30)
[2017-01-07] MEDS: METOPROLOL TARTRATE 25 MG TABLET PO SCH (10:31)
[2017-01-07] MEDS: AMLODIPINE BESYLATE 5 MG TABLET PO SCH (10:32)
[2017-01-07] MEDS: ASPIRIN 81 MG TABLET, CHEWABLE PO SCH (10:32)
[2017-01-07] MEDS: FLUTICASONE NASAL SPRAY 50 MCG/SPRY 120 SPRAY/16 GM NASL SCH (10:33)
--- NOTE | 2017-01-07 12:23 | DISCHARGE SUMMARY E ---
Discharge Summary NAME: DIANE SALINAS : 1955 AGE: 61Y ADMITTED: 12/24/2016 DISCHARGED: 01/07/2017 HISTORY: She is a 61-year-old patient with a past medical history of coronary artery disease. She was sent to the emergency department via EMS because of pain in her upper abdomen and mid abdomen with vomiting. She was 5 days postop for a cholecystectomy by Dr. Harding. She was taking Toradol for pain at home but ate dinner and began having sharp and persistent pain with vomiting. She was found to have normal LFTs and a normal lipase. White count was 15,000. She was admitted to the Surgical Service. PAST SURGICAL HISTORY: Remarkable for a cholecystectomy and hysterectomy. PAST MEDICAL HISTORY: [place] and a cardiac stent x1 and hypertension. 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 She is a current some-day smoker and does 2 packs per day x30 years. Occasional alcohol. CODE STATUS: SHE IS A FULL CODE. HOME MEDICATIONS: 1. Amlodipine. 2. Aspirin daily. 3. Atorvastatin. 4. Plavix. 5. Enalapril. 6. Metoprolol. ALLERGIES: She has no known allergies. HOSPITAL COURSE: The patient underwent a repeat procedure with ERCP and placement of a stent. Postoperatively she is doing well. There was some suspicion of persistent leakage, and a HIDA scan was done today which showed no evidence of a bile leak. Presently she is set up for home health to manage her drain. DISCHARGE CONDITION: Good. DISCHARGE INSTRUCTIONS: She will follow up in the Surgical Clinic in approximately a week. She is tolerating a regular diet. She is limited to lifting greater than 10 pounds. She may shower. She will continue on all her prior medications. DICTATING PHYSICIAN: REMI GOFF M.D. [id number] PHY#: [id number] ID: [id number] JOB#: [id number] ACCT: [id number] cc:CELIA GOLDBERG M.D. > MTDD
[2017-01-07 12:35] VITALS: BP 160/97
--- NOTE | 2017-01-07 14:50 | PDOC PROGRESS REPORT ---
Subjective Progress Note for:: 01/07/17 Subjective:: The patient was seen earlier today on rounds. The patient was out of bed to bedside chair. She denies any abdominal pain. The patient denies any nausea, vomiting, diarrhea, shortness of breath, dizziness, chest pain, heart palpitations, fevers, or chills. The patient overall feels much more improved. The patient has remained afebrile. Blood pressures have been in a good range. When prompted the patient voices no other concerns at this time. Review of systems: The rest of the review of systems is negative. Physical Exam Vital Signs: Temp Pulse Resp BP Pulse Ox 98.2 F 82 16 160/97 H 94 01/07/17 12:33 01/07/17 12:33 01/07/17 12:33 01/07/17 12:33 01/07/17 12:33 Intake & Output 01/05/17 01/06/17 01/07/17 23:59 23:59 23:59 Intake Total 1473 1733 1016 Output Total 30 1124 465 Balance 1443 609 551 Weight 72.4 kg 75 kg 71.8 kg General appearance: PRESENT: no acute distress, cooperative, well-developed, well-nourished Head exam: PRESENT: atraumatic, normocephalic Eye exam: PRESENT: conjunctiva pink, EOMI, PERRLA. ABSENT: scleral icterus Ear exam: PRESENT: normal external ear exam Mouth exam: PRESENT: moist, tongue midline Neck exam: ABSENT: carotid bruit, JVD, lymphadenopathy, thyromegaly Respiratory exam: PRESENT: clear to auscultation duncan, symmetrical, unlabored. ABSENT: rales, rhonchi, tachypnea, wheezes Cardiovascular exam: PRESENT: RRR. ABSENT: diastolic murmur, rubs, systolic murmur Pulses: PRESENT: normal dorsalis pedis pul Vascular exam: PRESENT: normal capillary refill GI/Abdominal exam: PRESENT: normal bowel sounds, soft. ABSENT: distended, guarding, mass, organolmegaly, rebound, tenderness Rectal exam: PRESENT: deferred Extremities exam: PRESENT: full ROM. ABSENT: calf tenderness, clubbing, pedal edema Neurological exam: PRESENT: alert, awake, oriented to person, oriented to place , oriented to time, oriented to situation, CN II-XII grossly intact. ABSENT: motor sensory deficit Psychiatric exam: PRESENT: appropriate affect, normal mood. ABSENT: homicidal ideation, suicidal ideation Skin exam: PRESENT: dry, intact, warm. ABSENT: cyanosis, rash Results Laboratory Results: 01/07/17 05:28 01/07/17 05:28 01/07/17 01/07/17 05:28 05:28 WBC 5.4 RBC 3.70 L Hgb 10.7 L Hct 31.4 L MCV 85 MCH 29.0 MCHC 34.2 RDW 14.1 H Plt Count 604 H Sodium 142.5 Potassium 3.8 Chloride 103 Carbon Dioxide 28 Anion Gap 12 BUN 10 Creatinine 0.66 Est GFR ( Amer) > 60 Est GFR (Non-Af Amer) > 60 Glucose 101 Calcium 9.0 Magnesium 1.8 Total Bilirubin 0.5 AST 30 ALT 54 H Alkaline Phosphatase 67 Total Protein 5.6 L Albumin 2.9 L 12/25/16 14:49 Troponin I < 0.012 Impressions: Acute Abdomen Series 12/22/16 19:25 IMPRESSION: NO RADIOGRAPHIC EVIDENCE FOR ACUTE ABDOMINAL DISEASE.Nonobstructive pattern. Lung Scan-VQ NM 12/23/16 00:00 IMPRESSION: NORMAL VENTILATION-PERFUSION LUNG SCAN. NEGATIVE FOR PULMONARY EMBOLI. Abdomen/Pelvis CT 12/23/16 14:35 IMPRESSION: 1. Increasing free fluid within the abdomen surrounding the liver , in the lesser sac and in the pelvis. There is no air to suggest abscess. 2. Right lower lobe pneumonia. KUB X-Ray 12/25/16 10:38 IMPRESSION: Post bile leak repair. Right subphrenic and right gallbladder fossa surgical drains are in place. Nonobstructive bowel gas pattern. Nasogastric tube, Hill catheter in good positioning Endo Retro Cholangiopancreatogram 12/29/16 00:00 IMPRESSION: INTRA PROCEDURAL IMAGING ABOVE . Chest X-Ray 01/02/17 06:00 IMPRESSION: Similar appearance of bilateral basilar atelectasis -pleural effusions. Right subclavian central venous catheter tip overlies the mid portion of the right atrium, similar to the prior study. Hepatobiliary Scan Nuclear Medicine 01/07/17 00:00 IMPRESSION: No bile leak is identified. Assessment & Plan - Diagnosis (1) Postoperative bile leak Is this a current diagnosis for this admission?: YesPlan: Management as per surgery and GI. The patient is tolerating regular diet. (2) Biliary anastomotic leak Is this a current diagnosis for this admission?: YesPlan: Biliary stent placement. (3) Status post cholecystectomy Is this a current diagnosis for this admission?: YesPlan: The patient was noted to have a bile leak is status post operative repair with drain. Management as per surgery. (4) Pneumonia Qualifiers: Laterality: right Lung location: lower lobe of lung Is this a current diagnosis for this admission?: YesPlan: Much improved. Have completed antibiotic coverage. (5) Septic shock Is this a current diagnosis for this admission?: YesPlan: Resolved (6) Coronary artery disease Qualifiers: Coronary Disease-Associated Artery/Lesion type: cheesh-na artery [place] vs. transplanted heart: cheesh-na heart Associated angina: without angina Qualified Code(s): I25.10 - Atherosclerotic heart disease of cheesh-na coronary artery without angina pectoris Is this a current diagnosis for this admission?: YesPlan: Will continue home medications. (7) Chronic diastolic (congestive) heart failure Is this a current diagnosis for this admission?: YesPlan: The patient is optivolemic. (8) Hypertension Qualifiers: Hypertension type: essential hypertension Qualified Code(s): I10 - Essential (primary) hypertension Is this a current diagnosis for this admission?: YesPlan: Continue home meds. (9) Tobacco dependency Is this a current diagnosis for this admission?: YesPlan: continue PRN nicotine patch. - Time Time Spent with patient: 25-34 minutes Medications reviewed and adjusted accordingly: Yes Anticipated discharge: Home Within: Other Disposition: Patient is stable from a medical standpoint. Will sign off at this time. Do appreciate the surgicalist for allowing the hospitalists to participate in the care of this nice patient.
--- NOTE | 2017-01-17 20:29 | HISTORY AND PHYSICAL E ---
History and Physical NAME: DIANE SALINAS : 1955 AGE: 61Y ADMITTED: 12/24/2016 ROOM: 326 CHIEF COMPLAINT: Abdominal pain. HISTORY OF PRESENT ILLNESS: This is a 61-year-old female with history of laparoscopic cholecystectomy done by Dr. Harding about 4 days ago. She was doing well until she took a couple of bites of dinner and suddenly developed sharp persistent abdominal pain with vomiting. She went to the Emergency Room and was given Zofran by EMS. In the Emergency Room, patient was noted to have normal LFTs, normal lipase, normal lactic acid; however, her white count was 15,000. She had obstructive series at the Emergency Room which was unremarkable. Also, a CT scan of the abdomen was done which showed no collection or perforation. The patient has been afebrile, but her white count is up to 15,000 which may be partly due to her vomiting and dehydration. I saw her in the Emergency Room and was just medicated parenterally for pain about half a hour ago, and she feels comfortable when seen. PAST MEDICAL HISTORY: Her past history showed that she had coronary artery disease. She had myocardial infarction and a cardiac stent x2. History of hypertension. PAST SURGICAL HISTORY: Laparoscopic cholecystectomy 4 days ago and hysterectomy. SOCIAL HISTORY: Smokes about 2 packs a day for the past few weeks but has been about a pack a day smoker for the past 30 years. She last smoked 12/21/2016. 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 Alcohol use is occasional and no recreational drug use or prescription drug abuse. . FAMILY HISTORY: Non-contributory. MEDICATIONS: 1. Amlodipine. 2. Aspirin. 3. Atorvastatin. 4. Plavix. 5. Vasotec. 6. Metoprolol. ALLERGIES: No known allergies. REVIEW OF SYSTEMS: As in HPI. CONSTITUTIONAL: Denies any chills or fever or headache. HEENT: Denies any visual or hearing problems. CARDIOPULMONARY: Denies any chest pain or shortness of breath. No cough, no hemoptysis. GASTROINTESTINAL: Abdominal pain with nausea. Denies diarrhea or constipation. GENITOURINARY: No dysuria. MUSCULOSKELETAL: No joint swelling. SKIN: No rash. NEUROLOGIC: No abnormal gait or speech. PSYCHIATRIC: No anxiety or depression. ENDOCRINE: No polydipsia, no polyuria. HEMATOLOGIC: No easy bleeding or bruising. PHYSICAL EXAMINATION: VITAL SIGNS: Temperature was 98.7. Pulse rate of 83 per minute. Respiratory rate of 19. BP 136/80. Pulse oximetry of 97% on room air. GENERAL: A well-developed, well-nourished, 61-year-old female in no apparent acute distress though complaining of abdominal pain. HEENT: Normocephalic. PERRLA. Normal external ear exam. The tongue is in the midline. Mouth is moist. NECK: No adenopathy or thyromegaly. RESPIRATORY: Clear to auscultation. No rales noted. CARDIAC: Regular rate and rhythm. No murmur. Pulses normal. Normal dorsalis pedis artery. VASCULAR: Normal capillary refill. ABDOMEN: Normal bowel sounds. Nontender. RECTAL: Exam is deferred. EXTREMITIES: Full range of motion. NEUROLOGIC: Alert, awake and oriented x3. PSYCHIATRIC EXAM: Appropriate affect. SKIN: Dry and warm. IMPRESSION: Abdominal pain possibly due to gastritis. PLAN: Start her on omeprazole equivalent and Percocet p.r.n. for pain. She will be admitted for hydration and parenteral pain medication. We will monitor her white count as well as liver functions. DICTATING PHYSICIAN: MAGY PATEL M.D. [id number] Y#: [id number] ID: [id number] JOB#: [id number] ACCT: [id number] cc:ENZO HARDING M.D. >
--- NOTE | 2017-02-23 13:23 | DISCHARGE SUMMARY E ---
Discharge Summary NAME: DIANE SALINAS : 1955 AGE: 61Y ADMITTED: 12/24/2016 DISCHARGED: 01/07/2017 Date of arrival was 12/22/2016, initially made observation. Made inpatient on 12/24/2016. DIAGNOSES: 1. Postoperative biliary leak with associated bile peritonitis. 2. Right lower lobe pneumonia, likely Gram negative. 3. Septic shock due to bilateral peritonitis. 4. Chronic diastolic congestive heart failure. 5. Hypertension. 6. Coronary artery disease with a past myocardial infarction and stent and tobacco abuse. PROCEDURES: 1. Re-exploration of the abdomen with re-clipping of cystic duct with drainage of bile peritonitis. 2. ERCP with sphincterotomy and stent placement. 3. Right subclavian central line with removable for discharge. DISCHARGE MEDICATIONS: 1. Metoprolol 12.5 mg q. 12 hours. 2. Plavix 75 mg a day. 3. Aspirin 81 mg a day. 4. Atorvastatin 40 mg every bedtime. 5. Amlodipine 2.5 mg daily. 6. Enalapril 20 mg daily. DISCHARGE ACTIVITY: None. DISCHARGE FOLLOWUP: Done. HOSPITAL COURSE: This 61-year-old female returned 5 days after a laparoscopic cholecystectomy with abdominal pain. She also had nausea, vomiting, and dehydration. Her white blood count was 15,000. X-rays and CT of the abdomen were normal. The initial suspicion was gastritis versus diverticulitis and she was brought in as observation status on omeprazole, IV fluids, and IV Flagyl. On the next day, she developed shortness of breath with worsening white blood count and persistent abdominal pain. Repeat CT showed right lower lobe pneumonia. She was started on IV cefepime. On 12/24, she had continued abdominal pain and leukocytosis and the attending became concerned for a bile leak. HIDA showed a contained bile leak with significant prehepatic fluid collection, which was addressed with CT-guided drainage. ERCP was felt needed, but had to be delayed due to her Plavix, which was then discontinued. On 12/25, exploratory lap was done with washout of peritoneal cavity, re-securing of the cystic duct stump, drainage of the prehepatic spaces, leaving the drain in. Due to hypotension developing postop, she was kept intubated and referred to the intensive care unit. Chest x-ray was worsening. Pulmonology was consulted. Given concern for effusions on chest x-ray, an echo was done. Ejection fraction was low normal and there was a question of a visible ventricular septal defect. Cardiology was consulted and felt that she did not have a ventricular septal defect. Due to ongoing septic shock, a central line was placed. The patient required use of 2 pressors, norepinephrine and Sharan-Synephrine, for pressure support in addition to copious IV fluids. Due to third spacing and malnutrition, albumin was administered, NG tube remained. She required continued pressor support for several days with tremendous volume outputs from the biliary drain. Antibiotic coverage was expanded with Zosyn. Chest x-ray showed mild acute pulmonary edema and she was diuresed with Lasix. GI was consulted. As of 12/29, patient was able to wean of pressors and white blood count improved. She was taken for an ERCP with a sphincterotomy, balloon sludge extraction, and biliary stenting. Cholangiogram showed significant leak into the gallbladder fossa still. She did not tolerate the ventilation weaning trials for a couple more days, but was eventually extubated and advanced on diet, although the KELLIE drain was still draining and mild leukocytosis continued. After gradual decrease in KELLIE output, stabilization of white blood count, full course of antibiotics, and repeat HIDA scan showed no definite leak seen, she was discharged to home with home health to help with drain management. DICTATING PHYSICIAN: REMI GOFF M.D. [id number] PHY#: [id number] ID: [id number] JOB#: [id number] ACCT: [id number] cc:Jason RODRIGUEZ M.D. >
== END 2017-01-07 14:03 | disposition home health service (06) | DRG 862 ==
LOC: ER 19:14 → UNDOADMOB 12-23 01:12 → EH 12-23 01:12 → INTOOBSV 12-23 01:12 → 2S 12-23 03:39 → EH 12-23 03:39 → OBSVTOIN 12-24 16:00 → 3W 12-24 18:45 → ICU 12-25 10:22 → 3S 01-02 21:30
PROVIDERS: ADMIT Surgery; ATTEND Surgery
PROC: 5A1955Z Respiratory Ventilation, Greater than 96 Consecutive Hours (ICD-10-PCS; 2016-12-25)
PROC: 3E1M38Z Irrigation of Peritoneal Cavity using Irrigating Substance, Percutaneous Approach (ICD-10-PCS; 2016-12-25)
PROC: 0F9140Z Drainage of Right Lobe Liver with Drainage Device, Percutaneous Endoscopic Approach (ICD-10-PCS; 2016-12-25)
PROC: 0FL84ZZ Occlusion of Cystic Duct, Percutaneous Endoscopic Approach (ICD-10-PCS; 2016-12-25)
PROC: 02H633Z Insertion of Infusion Device into Right Atrium, Percutaneous Approach (ICD-10-PCS; principal; 2016-12-25 08:30)
PROC: 0F798DZ Dilation of Common Bile Duct with Intraluminal Device, Via Natural or Artificial Opening Endoscopic (ICD-10-PCS; 2016-12-29)
PROC: BF11YZZ Fluoroscopy of Biliary and Pancreatic Ducts using Other Contrast (ICD-10-PCS; 2016-12-29)
DX: T81.4XXA Infection following a procedure, initial encounter (principal); T81.12XA Postprocedural septic shock, initial encounter; A41.9 Sepsis, unspecified organism; K65.3 Choleperitonitis; J18.9 Pneumonia, unspecified organism; J96.90 Respiratory failure, unspecified, unspecified whether with hypoxia or hypercapnia; K91.89 Other postprocedural complications and disorders of digestive system; I50.32 Chronic diastolic (congestive) heart failure; Y83.6 Removal of other organ (partial) (total) as the cause of abnormal reaction of the patient, or of later complication, without mention of misadventure at the time of the procedure; Y92.234 Operating room of hospital as the place of occurrence of the external cause; E87.6 Hypokalemia; I11.0 Hypertensive heart disease with heart failure; I25.10 Atherosclerotic heart disease of native coronary artery without angina pectoris; F17.210 Nicotine dependence, cigarettes, uncomplicated; I25.2 Old myocardial infarction; Z95.5 Presence of coronary angioplasty implant and graft; Z79.01 Long term (current) use of anticoagulants; Z79.82 Long term (current) use of aspirin; Z79.899 Other long term (current) drug therapy
CPT/HCPCS: 00740; 00790; 36415; 43262; 43274; 71010; 71020; 74000; 74022; 74176; 74177; 74330; 78226; 78582; 80048; 80053; 80076; 80202; 81001; 82150; 82565; 82803; 82962; 83605; 83690; 83735; 84478; 84484; 85025; 85027; 85379; 85610; 86850; 86900; 86901; 87040; 87324; 87493; 93005; 93010; 93306; 94002; 94003; 94640; 94660; 94668; 94799; 96374; 96375; 96376; 99285; A9537; A9540; A9567; C1751; C2617; C9290; G0378; J0131; J0330; J0692; J1170; J1630; J1642; J1885; J1940; J2250; J2270; J2370; J2405; J2543; J2704; J2765; J3010; J3370; J3480; J3490; J7030; J7060; J7620; P9047; Q9969; S0164

== ENCOUNTER 2017-03-16 15:45 | Day surgery (SDC) | payer OTHER ==
[~2017-03-16 15:45] MED LIST changes: -ACETAMINOPHEN 325 MG TABLET PO PRN; -CEFAZOLIN 1 GM/D5W RTU 1 GM/50 ML RTUPB IV PRN; +EPINEPHRINE INJ 1 MG/10 ML DISP.SYRIN ONE; +FENTANYL CITRATE INJ/PF 100 MCG/2 ML AMPUL ONE; +FLUMAZENIL INJ 0.5 MG/5 ML VIAL IV ONE; +GLUCAGON,HUMAN RECOMB 1 MG INJ ONE; -LACTATED RINGERS 1000 ML IV PRN; -LIDOCAINE 0.5% INJ-PF (5 MG/ML) 50 ML SDV SUBCUT PRN; +NALOXONE HCL INJ/PF 0.4 MG/1 ML SDV ONE; +ONDANSETRON HCL INJ/PF 4 MG/2 ML SDV ONE
[2017-03-16] MEDS: MIDAZOLAM 2 MG/2 ML INJ ONE ×2 (17:33→17:39)
--- NOTE | 2017-03-16 17:59 | Operative Report ---
Operative Report DATE OF SURGERY: 03/16/17 Operative Report: Pre-op diagnosis: History of biliary leak status post stent placement Post-op diagnosis: Common bile duct sludge Surgery: ERCP with biliary stent removal and balloon sludge extraction Medications: Versed 4mg Fentanyl 100mcg IV push Tissue removed: None Procedure: After informed consent obtained from patient, the throat was sprayed with Hurricane and conscious sedation was achieved. The ERCP endoscope was then inserted into the esophagus blindly and advanced into the stomach. The duodenum was entered and the ampulla was identified. An old stent was removed from the ampulla using the polypectomy snare and the stent was pulled out of the patient. Using the balloon catheter the common bile duct was freely cannulated. A cholangiogram was obtained which showed no evidence of bile leakage. The common bile duct and intrahepatic ducts did not appear dilated. The balloon was inserted to the proximal common bile duct and pulled down the duct. Some sludge was extracted. The duct was swept one more time. A balloon occlusion cholangiogram was normal. The pancreatic duct was intentionally not cannulated. Patient tolerated procedure well. Findings Common bile duct: Small amount of sludge. A 10 [place] stent was removed Intrahepatic ducts: Normal Pancreatic duct: Not cannulated Plan: Soft diet OPERATION: .
--- NOTE | 2017-03-16 17:59 | PDOC DISCHARGE SUMMARY ---
Discharge Summary (SDC) - Discharge Final Diagnosis: Common bile duct sludge with biliary stent removal Date of Surgery: 03/16/17 Condition: Stable Referrals: TANYA SWEET, [facility] [Primary Care Provider] - Discharge Diet: As Tolerated Discharge Activity: Activity As Tolerated Report the Following to Your Physician Immediately: Shortness of Breath, Increase in Pain, Swelling, Warmth, Increased Soreness
[2017-03-16 18:50] VITALS: BP 134/84
--- NOTE | 2017-03-16 20:20 | RADIOLOGY REPORT (SQ) ---
EXAM DESCRIPTION: ENDO CATH BILI/PANCREATIC COMPLETED DATE/TIME: 03/16/2017 8:04 pm REASON FOR STUDY: ERCP K87 DISORD OF GB, BILIARY TRAC AND PANCREAS IN DIS CLASSD EL R93.2 ABNORMAL FINDINGS ON DX IMAGING OF LIVER AND BILIARY T COMPARISON: None. FLUOROSCOPY TIME: 1 minutes 7 images saved to PACS. TECHNIQUE: Intra-operative images acquired during surgical procedure to evaluate progress. NUMBER OF IMAGES: 7 images LIMITATIONS: None. FINDINGS: Fluoroscopic images were obtained during performance of an ERCP IMPRESSION: IMAGE(S) OBTAINED DURING PROCEDURE. COMMENT: Quality ID [id number]: Final reports for procedures using fluoroscopy that document radiation exp osure indices, or exposure time and number of fluorographic images (if radiation exposure indices are not available) Please consult full operative report of the attending physician for description of the procedure. TECHNICAL DOCUMENTATION: JOB ID: [id number] [employer]- All Rights Reserved
--- NOTE | 2017-03-16 20:20 | RADIOLOGY REPORT (SQ) ---
EXAM DESCRIPTION: NO CHG FLUORO COMPLETE DATE/TIME: 03/16/2017 8:04 pm REASON FOR STUDY: ERCP K87 DISORD OF GB, BILIARY TRAC AND PANCREAS IN DIS CLASSD EL R93.2 ABNORMAL FINDINGS ON DX IMAGING OF LIVER AND BILIARY T FINDINGS: Please see combined report for performance of procedure and radiologic supervision and int erpretation. IMPRESSION: Please see combined report for performance of procedure and radiologic supervision and i nterpretation.
== END 2017-03-16 18:48 | disposition home or self-care (01) ==
LOC: END 15:45
PROVIDERS: ATTEND Internal Medicine Gastroenterology
PROC: 0FC98ZZ Extirpation of Matter from Common Bile Duct, Via Natural or Artificial Opening Endoscopic (ICD-10-PCS; principal; 2017-03-16 16:00)
PROC: 0FPB8DZ Removal of Intraluminal Device from Hepatobiliary Duct, Via Natural or Artificial Opening Endoscopic (ICD-10-PCS; 2017-03-16 16:00)
DX: Z46.59 Encounter for fitting and adjustment of other gastrointestinal appliance and device (principal); K83.8 Other specified diseases of biliary tract; E11.9 Type 2 diabetes mellitus without complications; I10 Essential (primary) hypertension; I25.10 Atherosclerotic heart disease of native coronary artery without angina pectoris
CPT/HCPCS: 43275; 43264; 74330; J2250; J3010; J1610; J0171; J2310; J2405; J3490

== ENCOUNTER → 2017-03-30 | Outpatient (CLI) | payer OTHER ==
[~2017-03-30] MED LIST changes: -EPINEPHRINE INJ 1 MG/10 ML DISP.SYRIN ONE; -FENTANYL CITRATE INJ/PF 100 MCG/2 ML AMPUL ONE; -FLUMAZENIL INJ 0.5 MG/5 ML VIAL IV ONE; -GLUCAGON,HUMAN RECOMB 1 MG INJ ONE; -NALOXONE HCL INJ/PF 0.4 MG/1 ML SDV ONE; -ONDANSETRON HCL INJ/PF 4 MG/2 ML SDV ONE; +REGADENOSON INJ 0.4 MG/5 ML DISP.SYRIN IV ONE
--- NOTE | 2017-04-05 16:04 | RADIOLOGY REPORT ---
STRESS TEST REPORT PATIENT NAME: DIANE SALINAS ROOM#: DATE OF SERVICE: 03/30/2017 AGE: 61Y ORDER#: [id number] REFERRING MD: ADIEL Kwon INDICATION: For assessing patency of right coronary artery stent. PROCEDURE PERFORMED REST/STRESS SINGLE ISOTOPE CARDIOLITE SPECT IMAGING WITH IV LEXISCAN STRESS AND GATED SPECT IMAGING CLINICAL HISTORY This is a 61-year-old male patient with known coronary artery disease an status post stent RCA in 2002 with continuing risk factors of hypercholesterolemia and hypertension. PROCEDURE The patient received IV Lexiscan 0.4 mg infused over ten seconds. The resting heart rate was 62 bpm and increased to 85 bpm at end infusion. The resting BP was 137/84 and remained about the same at 133/89 at end infusion. Patient had no symptoms of chest pains, without dizziness and shortness of breath. Resting 12 lead EKG showed sinus rhythm, 62 bpm, mild nonspecific inferolateral ST changes were seen. At end infusion, PVCs were seen with the same nonspecific inferior ST changes, no increase. Myocardial perfusion imaging was performed at rest 60 minutes following injection of 9.4 mCi Cardiolite. Ten seconds after the IV Lexiscan injection, 31.6 mCi Cardiolite was injected and flushed. Gated post stress tomographic imaging was performed 60 minutes after stress. FINDINGS The overall quality of the study is good. The left ventricular cavity is noted to be normal in size on both the rest and stress studies. There is no evidence of abnormal transient ischemic dilatation of the left ventricle. SPECT images showed small areas of mild reversible ischemia in the apical lateral wall, apical anterior wall, and apical inferior wall. There were no fixed perfusion defects. Gated SPECT imaging showed reduced motion and contraction in the basal inferior wall only. The left ventricular ejection fraction was calculated to be 49%. IMPRESSION: MYOCARDIAL PERFUSION IMAGING IS ABNORMAL. 1. THERE IS A SMALL AREA OF MILD REVERSIBLE ISCHEMIA IN THE APICAL LATERAL WALL , APICAL ANTERIOR WALL, AND APICAL INFERIOR WALL. 2. THERE WERE NO FIXED PERFUSION DEFECTS. 3. GATED SPECT IMAGING SHOWED REDUCED MOTION AND CONTRACTION IN THE BASAL INFERIOR WALL AND 4. THE LEFT VENTRICULAR EJECTION FRACTION IS DIMINISHED AT 49%. 5. NO PRIOR STUDY FOR COMPARISON. INTERPRETING PHYSICIAN: WILLIS CONN M.D. /: DANITZA TT: [id number] ID: [id number] /: [id number] TD: [id number] JOB: [id number] cc:Jason NEVAREZ FNP-C, [facility] > MTDD
== END ==
LOC: RAD 06:37
PROVIDERS: ATTEND Nurse Practitioner Family
DX: I25.10 Atherosclerotic heart disease of native coronary artery without angina pectoris (principal)
CPT/HCPCS: 93017; 78452; A9500; J2785; Q9969